=== PATIENT | male | born 1950 | race Caucasian/White ===

== ENCOUNTER 2016-07-17 19:10 | Emergency (ER) | payer OTHER, MEDICARE ==
[2016-07-17] MEDS ORDERED: MAGNESIUM CITRATE 296 ML BOTTLE PO ONE (19:41)
--- NOTE | 2016-07-17 19:41 | ER Document Report ---
ED Medical Screen (RME) - General Chief Complaint: Constipation Stated Complaint: POSSIBLE CONSTIPATION Time seen by provider: 19:40 Mode of Arrival: Wheelchair Information source: Patient Notes: 66-year-old hearing impaired man with a history of coronary artery disease, minimal ambulation, presents with constipation for the past several days. TRAVEL OUTSIDE OF THE [place] IN LAST 30 DAYS: No - Related Data Allergies/Adverse Reactions: latex [Latex] Allergy (Unknown, Verified 04/30/15 06:11) Penicillins Allergy (Unknown, Verified 04/30/15 06:11) Past Medical History - Past Medical History Cardiac Medical History: Reports: Hx Congestive Heart Failure, Hx Heart Attack, Hx Hypercholesterolemia, Hx Hypertension, Hx Heart Murmur - abnormal ekg at [place] Denies: Hx Peripheral Vascular Disease Pulmonary Medical History: Denies: Hx Tuberculosis Neurological Medical History: Denies: Hx Cerebrovascular Accident, Hx Seizures Renal/ Medical History: Reports: Hx Benign Prostatic Hyperplasia. Denies: Hx End Stage Renal Disease, Hx Kidney Stones, Hx Peritoneal Dialysis Malignancy Medical History: Denies Hx Leukemia GI Medical History: Reports: Hx Gastroesophageal Reflux Disease. Denies: Hx Crohn's Disease, Hx Hiatal Hernia, Hx Irritable Bowel, Hx Liver Failure, Hx Ulcer Musculoskeltal Medical History: Reports Hx Arthritis, Denies Hx Fibromyalgia, Denies Hx Multiple Sclerosis, Denies Hx Muscular Dystrophy Psychiatric Medical History: Reports: Hx Depression Denies: Hx Dementia Traumatic Medical History: Denies: Hx Fractures Infectious Medical History: Denies: Hx HIV Past Surgical History: Reports: Hx Cardiac Catheterization, Hx Cardiac Surgery - stents, defib, CABG, Hx Cholecystectomy, Hx Coronary Artery Bypass Graft, Hx Genitourinary Surgery - vasectomy, Hx Inguinal Hernia. Denies: Hx Appendectomy , Hx Bowel Surgery, Hx Colostomy, Hx Gastric Bypass Surgery, Hx Herniorrhaphy, Hx Pacemaker, Hx Tonsillectomy - Immunizations Hx Diphtheria, Pertussis, Tetanus Vaccination: Yes
[2016-07-17 19:42] VITALS: BP 144/93
[2016-07-17 21:52] LABS: ABSOLUTE EOSINOPHILS # (AUTO) 0.3 10^3/uL (0.0-0.6); ABSOLUTE LYMPHOCYTES (AUTO) 1.4 10^3/uL (0.5-4.7); ABSOLUTE MONOCYTES (AUTO) 1.1 10^3/uL (0.1-1.4); ABSOLUTE NEUT (AUTO) 4.2 10^3/uL (1.7-8.2); BASOPHILS % (AUTO) 0.4 % (0-2); EOSINOPHILS % (AUTO) 4.7 % (0-6); HEMATOCRIT 37.5 % (37.9-51.0); HEMOGLOBIN 13.3 g/dL (13.5-17.0); HGB HCT DIFFERENCE 2.4; LYMPHOCYTES % (AUTO) 19.9 % (13-45); MEAN CORPUSCULAR HEMOGLOBIN 33.6 pg (27.0-33.4); MEAN CORPUSCULAR HGB CONC 35.4 g/dL (32.0-36.0); MEAN CORPUSCULAR VOLUME 95 fl (80-97); MONOCYTES % (AUTO) 15.7 % (3-13); RED BLOOD COUNT 3.95 10^6/uL (4.35-5.55); SEGMENTED NEUTROPHILS % (AUTO) 59.3 % (42-78); WHITE BLOOD COUNT 7.1 10^3/uL (4.0-10.5)
[2016-07-17 22:09] LABS: ALANINE AMINOTRANSFERASE 46 U/L (21-72); ALBUMIN 3.8 g/dL (3.5-5.0); ALKALINE PHOSPHATASE 134 U/L (38-126); ANION GAP 10 (5-19); ASPARTATE AMINO TRANSFERASE 42 U/L (17-59); BILIRUBIN,DIRECT 0.2 mg/dL (0.0-0.4); BILIRUBIN,TOTAL 1.1 mg/dL (0.2-1.3); BLOOD UREA NITROGEN 12 mg/dL (7-20); CALCIUM 9.9 mg/dL (8.4-10.2); CARBON DIOXIDE 28 mmol/L (22-30); CHLORIDE 103 mmol/L (98-107); CREATININE RESULT 0.73 mg/dL (0.52-1.25); GLUCOSE 98 mg/dL (75-110); POTASSIUM 4.1 mmol/L (3.6-5.0); SODIUM 140.7 mmol/L (137-145); TOTAL PROTEIN 6.4 g/dL (6.3-8.2)
--- NOTE | 2016-07-17 23:14 | ER Document Report ---
ED General - General Chief Complaint: Constipation Stated Complaint: POSSIBLE CONSTIPATION Mode of Arrival: Wheelchair Notes: Patient is a 66-year-old male who presents with complaints of constipation. Patient says that he gets recurrent constipation. He says his usually give some Dulcolax now prevented; however, his has been admitted to the hospital for last 4 days. He has not had a bowel movement for 3 days. He said no vomiting. No fevers. He has had to receive enemas in the past. No blood in the stool. He says he has pressure in his rectum feels as if there is a big stool ball there that he cannot get out. No other complaints at this time. TRAVEL OUTSIDE OF THE [place] IN LAST 30 DAYS: No - Related Data Allergies/Adverse Reactions: latex [Latex] Allergy (Unknown, Verified 07/17/16 19:44) Penicillins Allergy (Unknown, Verified 07/17/16 19:44) Past Medical History - General Information source: Patient - Social History Smoking Status: Never Smoker Frequency of alcohol use: None Drug Abuse: None Family History: Reviewed & Not Pertinent Patient has suicidal ideation: No Patient has homicidal ideation: No - Past Medical History Cardiac Medical History: Reports: Hx Congestive Heart Failure, Hx Heart Attack, Hx Hypercholesterolemia, Hx Hypertension, Hx Heart Murmur - abnormal ekg at [place] Denies: Hx Peripheral Vascular Disease Pulmonary Medical History: Denies: Hx Tuberculosis Neurological Medical History: Denies: Hx Cerebrovascular Accident, Hx Seizures Renal/ Medical History: Reports: Hx Benign Prostatic Hyperplasia. Denies: Hx End Stage Renal Disease, Hx Kidney Stones, Hx Peritoneal Dialysis Malignancy Medical History: Denies Hx Leukemia GI Medical History: Reports: Hx Gastroesophageal Reflux Disease. Denies: Hx Crohn's Disease, Hx Hiatal Hernia, Hx Irritable Bowel, Hx Liver Failure, Hx Ulcer Musculoskeltal Medical History: Reports Hx Arthritis, Denies Hx Fibromyalgia, Denies Hx Multiple Sclerosis, Denies Hx Muscular Dystrophy Psychiatric Medical History: Reports: Hx Depression Denies: Hx Dementia Traumatic Medical History: Denies: Hx Fractures Infectious Medical History: Denies: Hx HIV Past Surgical History: Reports: Hx Cardiac Catheterization, Hx Cardiac Surgery - stents, defib, CABG, Hx Cholecystectomy, Hx Coronary Artery Bypass Graft, Hx Genitourinary Surgery - vasectomy, Hx Inguinal Hernia. Denies: Hx Appendectomy , Hx Bowel Surgery, Hx Colostomy, Hx Gastric Bypass Surgery, Hx Herniorrhaphy, Hx Pacemaker, Hx Tonsillectomy - Immunizations Hx Diphtheria, Pertussis, Tetanus Vaccination: Yes Hx Pneumococcal Vaccination: 12/16/10 Review of Systems - Review of Systems Notes: My Normal Review Basic REVIEW OF SYSTEMS: CONSTITUTIONAL : Denies fever, chills, or sweats. Denies recent illness. RESPIRATORY: Denies cough, cold, or chest congestion. Denies shortness of breath, difficulty breathing, or wheezing. GASTROINTESTINAL: Mild lower abdominal pain. Denies nausea, vomiting, or diarrhea. Has had some constipation. GENITOURINARY: Denies difficulty urinating, painful urination, burning, frequency, or blood in urine.s. LMP: MUSCULOSKELETAL: Denies neck or back pain or joint pain or swelling. SKIN: Denies rash or skin lesions. NEUROLOGICAL: Denies altered mental status or loss of consciousness. Denies headache. Denies weakness or paralysis or loss of use of either side. Denies problems with gait or speech. Denies sensory or motor loss. ALL OTHER SYSTEMS REVIEWED AND NEGATIVE. Physical Exam - Vital signs Vitals: Temp Pulse Resp BP Pulse Ox 98.4 F 65 19 144/93 H 100 07/17/16 19:36 07/17/16 19:36 07/17/16 19:36 07/17/16 19:36 07/17/16 19:36 - Notes Notes: General Appearance: Well nourished, alert, cooperative, no acute distress, no obvious discomfort. Well-appearing. Vitals: reviewed, See vital signs table. Eyes: PERRL, EOMI, Conjuctiva clear Mouth: No decreasd moisture Abdomen: Normal BS, soft, No rigidity, mild lower abdominal tenderness to palpation, No guarding, no rebound, no abdominal masses, no organomegaly Rectal exam: Large amount of irm claylike textured stool in rectal vault. Small non-thrombosed external hemorrhoid. Extremities: strength 5/5 in all extremities, good pulses in all extremities, no swelling or tenderness in the extremities, no edema. Skin: warm, dry, appropriate color, no rash Neuro: speech clear, oriented x 3, normal affect, responds appropriately to questions. Course - Re-evaluation Re-evalutation: 07/17/16 23:37 I did do a partial disimpaction. It was able to get out a moderate amount of stool from the rectum through digital disimpaction. We will now give the patient a enema to help relieve him of the remainder of the stool in his rectal vault. - Vital Signs Vital signs: Temp Pulse Resp BP Pulse Ox 98.4 F 65 19 144/93 H 100 07/17/16 19:36 07/17/16 19:36 07/17/16 19:36 07/17/16 19:36 07/17/16 19:36 - Laboratory Result Diagrams: 07/17/16 21:30 07/17/16 21:30 Laboratory results interpreted by me: 07/17/16 07/17/16 21:30 21:30 RBC 3.95 L Hgb 13.3 L Hct 37.5 L MCH 33.6 H RDW 17.0 H Plt Count 143 L Monocytes % 15.7 H Alkaline Phosphatase 134 H - Transfer of Care Notes: 07/18/16 01:48 Patient has had a large bowel movement after the enema. He feels much improved. He has no pain and looks well. Patient will be discharged home. I encouraged him to return to ER if he has current pain, worsening constipation, or any blood in the stool. Patient agrees with plan and will be discharged home. Dictation of this chart was performed using voice recognition software; therefore, there may be some unintended grammatical errors. Discharge - Discharge Clinical Impression: Fecal impaction in rectum Abdominal pain Qualifiers: Abdominal location: lower abdomen, unspecified Qualified Code(s): R10.30 - Lower abdominal pain, unspecified Condition: Good Disposition: HOME, SELF-CARE Instructions: Constipation ([facility]) Additional Instructions: Please take the MiraLAX as prescribed. Please follow-up with your doctor in 2 to 3 days. Please return to the ER immediately if you have recurrent difficulty having bowel movements, any bloody stool, or any fevers. Prescriptions: Polyethylene Glycol 3350 [Miralax] 1 cap PO DAILY #527 powder
[2016-07-17] MEDS ORDERED: MINERAL OIL 30 ML UDCUP PR ONE (23:36)
== END 2016-07-18 02:10 | disposition home or self-care (01) ==
LOC: ER 19:10
DX: K56.41 Fecal impaction (principal); R10.30 Lower abdominal pain, unspecified; K59.00 Constipation, unspecified
CPT/HCPCS: 36415; 74000; 80053; 85025; 99283

== ENCOUNTER 2016-09-07 11:10 | Emergency (ER) | payer OTHER, MEDICARE ==
--- NOTE | 2016-09-07 11:42 | ER Document Report ---
HPI - HPI Patient complains to provider of: Right shoulder pain Onset: This morning Onset/Duration: Sudden Quality of pain: Throbbing Severity: Severe Pain Level: 5 Context: Patient states he was in a closet putting his shirt on and when he turned around , he tripped over the hamper. states that he landed on the bed, falling off and injuring his right shoulder on the floor. witnessed the fall event , she denies he lost consciousness, no nausea or vomiting, and is acting like his usual self. Patient is very hard of hearing so is answering some of the questions for him. Patient denies dizziness, chest pain or shortness of breath. Associated Symptoms: None Exacerbated by: Movement Relieved by: Denies Similar symptoms previously: No Recently seen / treated by doctor: No - ROS ROS below otherwise negative: Yes Systems Reviewed and Negative: Yes All other systems reviewed and negative - CONSTITUTIONAL Constitutional: DENIES: Fever - EENT EENT: DENIES: Congestion - NEURO Neurology: DENIES: Headache - CARDIOVASCULAR Cardiovascular: DENIES: Chest pain - RESPIRATORY Respiratory: DENIES: Trouble Breathing - GASTROINTESTINAL Gastrointestinal: DENIES: Abdominal Pain - URINARY Urinary: DENIES: Dysuria - MUSCULOSKELETAL Musculoskeletal: REPORTS: Extremity pain - Right shoulder/clavicle - DERM Skin Color: Ecchymosis - right collar bone Skin Problems: None <LAZARUS VINCENT - Last Filed: 09/07/16 12:38> Past Medical History - General Information source: Patient, Relative - spouse - Social History Smoking Status: Former Smoker Frequency of alcohol use: None Drug Abuse: None Lives with: Spouse/Significant other Family History: Reviewed & Not Pertinent Patient has suicidal ideation: No Patient has homicidal ideation: No - Past Medical History Cardiac Medical History: Reports: Hx Congestive Heart Failure, Hx Heart Attack, Hx Hypercholesterolemia, Hx Hypertension, Hx Heart Murmur - abnormal ekg at [place] Neurological Medical History: Denies: Hx Cerebrovascular Accident, Hx Seizures Renal/ Medical History: Reports: Hx Benign Prostatic Hyperplasia. Denies: Hx End Stage Renal Disease, Hx Kidney Stones, Hx Peritoneal Dialysis Malignancy Medical History: Denies Hx Leukemia GI Medical History: Reports: Hx Gastroesophageal Reflux Disease. Denies: Hx Crohn's Disease, Hx Hiatal Hernia, Hx Irritable Bowel, Hx Liver Failure, Hx Ulcer Musculoskeltal Medical History: Reports Hx Arthritis, Denies Hx Fibromyalgia, Denies Hx Multiple Sclerosis, Denies Hx Muscular Dystrophy Psychiatric Medical History: Reports: Hx Depression Denies: Hx Dementia Traumatic Medical History: Denies: Hx Fractures Infectious Medical History: Denies: Hx HIV Past Surgical History: Reports: Hx Cardiac Catheterization, Hx Cardiac Surgery - stents, defib, CABG, Hx Cholecystectomy, Hx Coronary Artery Bypass Graft, Hx Genitourinary Surgery - vasectomy, Hx Inguinal Hernia. Denies: Hx Appendectomy , Hx Bowel Surgery, Hx Colostomy, Hx Gastric Bypass Surgery, Hx Herniorrhaphy, Hx Pacemaker, Hx Tonsillectomy - Immunizations Hx Diphtheria, Pertussis, Tetanus Vaccination: Yes Hx Pneumococcal Vaccination: 12/16/10 <LAZARUS VINCENT - Last Filed: 09/07/16 12:38> Vertical Provider Document - INFECTION CONTROL TRAVEL OUTSIDE OF THE [place] IN LAST 30 DAYS: No - RESPIRATORY O2 Sat by Pulse Oximetry: 98 <LAZARUS VINCENT - Last Filed: 09/07/16 12:38> Course - Re-evaluation Re-evalutation: 09/07/16 12:35 X-rays negative for fracture and were discussed with patient and spouse. - Vital Signs Vital signs: Temp Pulse Resp BP Pulse Ox 97.9 F 64 16 118/76 98 09/07/16 11:15 09/07/16 11:15 09/07/16 11:15 09/07/16 11:15 09/07/16 11:15 <LAZARUS VINCENT - Last Filed: 09/07/16 12:38> - Vital Signs Vital signs: Temp Pulse Resp BP Pulse Ox 97.8 F 57 L 16 115/72 97 09/07/16 12:56 09/07/16 12:56 09/07/16 12:56 09/07/16 12:56 09/07/16 12:56 <SCARLET PATEL - Last Filed: 09/08/16 14:37> Procedures - Immobilization Right Arm Pre-Proc Neuro Vasc Exam: Normal Immobilizer type: Sling Performed by: PCT Post-Proc Neuro Vasc Exam: Normal Alignment checked and good: Yes <LAZARUS VINCENT - Last Filed: 09/07/16 12:38> Discharge <LAZARUS VINCENT - Last Filed: 09/07/16 12:38> <JORGE,SCARLET - Last Filed: 09/08/16 14:37> - Discharge Clinical Impression: Contusion of right shoulder Qualifiers: Encounter type: initial encounter Qualified Code(s): S40.011A - Contusion of right shoulder, initial encounter Condition: Good Disposition: HOME, SELF-CARE Additional Instructions: Ice packs to shoulder Pain medications as prescribed Follow-up with your doctor Saturday for recheck If worsens and as needed. Prescriptions: Hydrocodone/Acetaminophen [[place] 5-325 mg Tablet] 1 tab PO PRN PRN #15 tablet PRN Reason:
--- NOTE | 2016-09-07 12:05 | RADIOLOGY REPORT (SQ) ---
EXAM DESCRIPTION: SHOULDER RIGHT 2 OR MORE VIEWS COMPLETED DATE/TIME: 09/07/2016 11:53 am REASON FOR STUDY: injury - please include clavicle COMPARISON: None. NUMBER OF VIEWS: Three views. TECHNIQUE: Internal rotation, external rotation, and Y view images acquired of the right shoulder. LIMITATIONS: None. FINDINGS: MINERALIZATION: Normal. BONES: No acute fracture or dislocation. No worrisome bone lesions. JOINTS: No dislocation. VISUALIZED LUNGS AND RIBS: No pneumothorax. No rib fracture. SOFT TISSUES: No radiopaque foreign body. OTHER: No other significant finding. IMPRESSION: NEGATIVE STUDY OF THE RIGHT SHOULDER. NO RADIOGRAPHIC EVIDENCE OF ACUTE INJURY. TECHNICAL DOCUMENTATION: JOB ID: [id number] [email or web address]- All Rights Reserved
--- NOTE | 2016-09-07 12:21 | RADIOLOGY REPORT (SQ) ---
EXAM DESCRIPTION: RIBS RIGHT W/PA CHEST COMPLETED DATE/TIME: 09/07/2016 11:53 am REASON FOR STUDY: injury - please include clavicle COMPARISON: None. TECHNIQUE: Frontal view of the chest and additional views of the right ribs acquired. NUMBER OF VIEWS: Three views LIMITATIONS: None. FINDINGS: FRONTAL CXR: No pneumothorax is seen. There is blunting of the right costophrenic angle c onsistent with a small right pleural effusion. No consolidations are identified. RIBS: No displaced rib fractures. No lytic or blastic bony lesions. OTHER: No other significant finding. IMPRESSION: NO PNEUMOTHORAX. NO DISPLACED RIB FRACTURES. COMMENT: SITE OF TRAUMA/COMPLAINT MARKED/STAMP COMPLETED: No TECHNICAL DOCUMENTATION: JOB ID: [id number] [employer]- All Rights Reserved
[2016-09-07 12:59] VITALS: BP 115/72
== END 2016-09-07 12:54 | disposition home or self-care (01) ==
LOC: ER 11:10
DX: S40.011A Contusion of right shoulder, initial encounter (principal); W01.0XXA Fall on same level from slipping, tripping and stumbling without subsequent striking against object, initial encounter; Y92.008 Other place in unspecified non-institutional (private) residence as the place of occurrence of the external cause; I50.9 Heart failure, unspecified; E78.00 Pure hypercholesterolemia, unspecified; I11.0 Hypertensive heart disease with heart failure; K21.9 Gastro-esophageal reflux disease without esophagitis; I25.2 Old myocardial infarction; Z95.1 Presence of aortocoronary bypass graft; Z95.810 Presence of automatic (implantable) cardiac defibrillator; Z90.49 Acquired absence of other specified parts of digestive tract; Z98.52 Vasectomy status
CPT/HCPCS: 99283

== ENCOUNTER 2016-12-07 10:20 | Emergency (ER) | payer OTHER, MEDICARE ==
--- NOTE | 2016-12-07 10:33 | ER Document Report ---
ED General - General Stated Complaint: FALL/HEAD PAIN Mode of Arrival: Medic Information source: Patient Notes: 66-year-old male presents after a mechanical fall while standing. Patient leans on a door that was not checked all the way and fell sideways hitting the right side of his chest and the back of his head. Patient is on baby aspirin daily initially stated he had a headache but that has since resolved. Patient notes he has had some neck pain and this is similar. denies any neuro deficits TRAVEL OUTSIDE OF THE [place] IN LAST 30 DAYS: No - HPI Onset: Just prior to arrival Onset/Duration: Sudden Quality of pain: Achy Severity: Mild Pain Level: Denies Associated symptoms: Body/muscle aches Exacerbated by: Movement Relieved by: Denies Similar symptoms previously: No Recently seen / treated by doctor: No - Related Data Allergies/Adverse Reactions: latex [Latex] Allergy (Unknown, Verified 12/07/16 10:32) Penicillins Allergy (Unknown, Verified 12/07/16 10:32) Past Medical History - Social History Smoking Status: Never Smoker Cigarette use (# per day): No Chew tobacco use (# tins/day): No Smoking Education Provided: No Family History: Reviewed & Not Pertinent - Past Medical History Cardiac Medical History: Reports: Hx Congestive Heart Failure, Hx Heart Attack, Hx Hypercholesterolemia, Hx Hypertension, Hx Heart Murmur - abnormal ekg at [place] Denies: Hx Peripheral Vascular Disease Pulmonary Medical History: Denies: Hx Tuberculosis Neurological Medical History: Denies: Hx Cerebrovascular Accident, Hx Seizures Renal/ Medical History: Reports: Hx Benign Prostatic Hyperplasia. Denies: Hx End Stage Renal Disease, Hx Kidney Stones, Hx Peritoneal Dialysis Malignancy Medical History: Denies Hx Leukemia GI Medical History: Reports: Hx Gastroesophageal Reflux Disease. Denies: Hx Crohn's Disease, Hx Hiatal Hernia, Hx Irritable Bowel, Hx Liver Failure, Hx Ulcer Musculoskeltal Medical History: Reports Hx Arthritis, Denies Hx Fibromyalgia, Denies Hx Multiple Sclerosis, Denies Hx Muscular Dystrophy Psychiatric Medical History: Reports: Hx Depression Denies: Hx Dementia Traumatic Medical History: Denies: Hx Fractures Infectious Medical History: Denies: Hx HIV Past Surgical History: Reports: Hx Cardiac Catheterization, Hx Cardiac Surgery - stents, defib, CABG, Hx Cholecystectomy, Hx Coronary Artery Bypass Graft, Hx Genitourinary Surgery - vasectomy, Hx Inguinal Hernia. Denies: Hx Appendectomy , Hx Bowel Surgery, Hx Colostomy, Hx Gastric Bypass Surgery, Hx Herniorrhaphy, Hx Pacemaker, Hx Tonsillectomy - Immunizations Hx Diphtheria, Pertussis, Tetanus Vaccination: Yes Hx Pneumococcal Vaccination: 12/16/10 Review of Systems - Review of Systems Notes: REVIEW OF SYSTEMS: CONSTITUTIONAL : Denies fever, chills, or sweats. Denies recent illness. EENT: Denies eye, ear, throat, or mouth pain or symptoms. Denies nasal or sinus congestion or discharge. Denies throat, tongue, or mouth swelling or difficulty swallowing. CARDIOVASCULAR: Denies chest pain. Denies palpitations or racing or irregular heart beat. Denies ankle edema. RESPIRATORY: Denies cough, cold, or chest congestion. Denies shortness of breath, difficulty breathing, or wheezing. GASTROINTESTINAL: Denies abdominal pain or distention. Denies nausea, vomiting , or diarrhea. Denies blood in vomitus, stools, or per rectum. Denies black, tarry stools. Denies constipation. GENITOURINARY: Denies difficulty urinating, painful urination, burning, frequency, blood in urine, or discharge. MUSCULOSKELETAL: neck pain SKIN: Denies rash, lesions or sores. HEMATOLOGIC : Denies easy bruising or bleeding. LYMPHATIC: Denies swollen, enlarged glands. NEUROLOGICAL: Denies confusion or altered mental status. Denies passing out or loss of consciousness. Denies dizziness or lightheadedness. Denies headache. Denies weakness or paralysis or loss of use of either side. Denies problems with gait or speech. Denies sensory loss, numbness, or tingling. Denies seizures. PSYCHIATRIC: Denies anxiety or stress. Denies depression, suicidal ideation, or homicidal ideation. ALL OTHER SYSTEMS REVIEWED AND NEGATIVE. Dictation was performed using [employer] voice recognition software PHYSICAL EXAMINATION: GENERAL: Well-appearing, well-nourished and in no acute distress. HEAD: Atraumatic, normocephalic. EYES: Pupils equal round and reactive to light, extraocular movements intact, sclera anicteric, conjunctiva are normal. ENT: Nares patent, oropharynx clear without exudates. Moist mucous membranes. NECK: Normal range of motion, supple without lymphadenopathy LUNGS: Breath sounds clear to auscultation bilaterally and equal. No wheezes rales or rhonchi. right rib pain HEART: Regular rate and rhythm without murmurs ABDOMEN: Soft, nontender, nondistended abdomen. No guarding, no rebound. No masses appreciated. Musculoskeletal: c collar in place NEUROLOGICAL: Cranial nerves grossly intact. Normal speech, normal gait. Normal sensory, motor exams PSYCH: Normal mood, normal affect. SKIN: Warm, Dry, normal turgor, no rashes or lesions noted. Course - Re-evaluation Re-evalutation: 12/07/16 11:30 X-rays were performed no acute fractures noted small effusion which was seen on previous x-rays noted on repeat imaging. Otherwise patient looks well in no distress will be discharged home After performing a Medical Screening Examination, I estimate there is LOW risk for INTRACRANIAL HEMORRHAGE, UNSTABLE SPINE FRACTURE, CENTRAL CORD SYNDROME, CAUDA EQUINA, THORACIC AORTIC DISSECTION, PNEUMOTHORAX, PERFORATED BOWEL, RUPTURED ABDOMINAL AORTIC ANEURYSM, ACUTE TENDON RUPTURE, COMPARTMENT SYNDROME, or OPEN FRACTURE, thus I consider the discharge disposition reasonable. Also, there is no evidence or peritonitis, sepsis, or toxicity. I have reevaluated this patient multiple times and no significant life threatening changes are noted. The patient and I have discussed the diagnosis and risks, and we agree with discharging home to follow-up with their primary doctor with the understanding that symptoms and presentations can change. We also discussed returning to the Emergency Department immediately if new or worsening symptoms occur. We have discussed the symptoms which are most concerning (e.g., bloody stool, fever, changing or worsening pain, vomiting) that necessitate immediate return. Discharge - Discharge Clinical Impression: Rib pain on right side, Neck pain, small pleural effusion Fall Qualifiers: Encounter type: initial encounter Qualified Code(s): W19.XXXA - Unspecified fall, initial encounter Condition: Stable Disposition: HOME, SELF-CARE Instructions: Rib Contusion ([facility]) Additional Instructions: Follow up with your physician tomorrow for further care or return to the ED IMMEDIATELY if symptoms worsen or new concerns occur. If you cannot afford to follow up with your primary care physician a list of low cost clinics have been provided at the end of your discharge papers as well.
--- NOTE | 2016-12-07 11:12 | RADIOLOGY REPORT (SQ) ---
EXAM DESCRIPTION: CERV SP 4 OR 5 VIEWS COMPLETED DATE/TIME: 12/07/2016 10:54 am REASON FOR STUDY: fall COMPARISON: None. NUMBER OF VIEWS: Five views. TECHNIQUE: AP, lateral, obliques and odontoid radiographic images acquired of the cervical spine. LIMITATIONS: None. FINDINGS: MINERALIZATION: Normal. ALIGNMENT: Anatomic. VERTEBRAE: Vertebral bodies of normal height. DISCS: Disc spaces are narrowed to a mild degree at C4-5, C5-6, C6-7 with small anterior and posterio r osteophytes. FORAMINA: No osteophytes or foraminal narrowing. LATERAL AND POSTERIOR ELEMENTS: Facets, lateral masses and spinous processes without significant find ings. HARDWARE: None in the spine. SOFT TISSUES: No masses or calcifications. Lung apices clear. OTHER: No other significant finding. IMPRESSION: Mild degenerative disc changes and spondylosis with no acute abnormality. TECHNICAL DOCUMENTATION: JOB ID: [id number] [employer]- All Rights Reserved
--- NOTE | 2016-12-07 11:24 | RADIOLOGY REPORT (SQ) ---
EXAM DESCRIPTION: RIBS RIGHT W/PA CHEST COMPLETED DATE/TIME: 12/07/2016 10:54 am REASON FOR STUDY: fall rib pain COMPARISON: None. TECHNIQUE: Views of the right ribs acquired. NUMBER OF VIEWS: Two views LIMITATIONS: None. FINDINGS: INCLUDED CHEST: No pneumothorax. Small right pleural effusion. RIBS: No displaced rib fractures. No lytic or blastic bony lesions. OTHER: No other significant finding. IMPRESSION: Small right pleural effusion. No displaced rib fractures. COMMENT: SITE OF TRAUMA/COMPLAINT MARKED/STAMP COMPLETED: No TECHNICAL DOCUMENTATION: JOB ID: [id number] [employer]- All Rights Reserved
--- NOTE | 2016-12-07 11:25 | RADIOLOGY REPORT (SQ) ---
EXAM DESCRIPTION: CHEST PA/LAT COMPLETED DATE/TIME: 12/07/2016 10:54 am REASON FOR STUDY: FALL COMPARISON: 04/30/2015 EXAM PARAMETERS: NUMBER OF VIEWS: two views TECHNIQUE: Digital Frontal and Lateral radiographic views of the chest acquired. RADIATION DOSE: NA LIMITATIONS: none FINDINGS: LUNGS AND PLEURA: Small right pleural effusion. No pulmonary infiltrate or mass. No pneu mothorax. MEDIASTINUM AND HILAR STRUCTURES: No masses or contour abnormalities. HEART AND VASCULAR STRUCTURES: Normal heart size. No aneurysm. BONES: No acute findings. HARDWARE: Pacemaker/ defibrillator. Sternotomy wires. Coronary stent. OTHER: No other significant finding. IMPRESSION: Small right pleural effusion. TECHNICAL DOCUMENTATION: JOB ID: [id number] [employer]- All Rights Reserved
[2016-12-07] MEDS ORDERED: IBUPROFEN 600 MG TABLET PO ONE (11:33)
[2016-12-07 12:56] VITALS: BP 143/75
== END 2016-12-07 12:56 | disposition home or self-care (01) ==
LOC: ER 10:20
DX: R07.81 Pleurodynia (principal); M54.2 Cervicalgia; W18.39XA Other fall on same level, initial encounter; J90 Pleural effusion, not elsewhere classified; I10 Essential (primary) hypertension; I25.2 Old myocardial infarction; Z79.82 Long term (current) use of aspirin; Z91.040 Latex allergy status; Z88.0 Allergy status to penicillin; Z95.5 Presence of coronary angioplasty implant and graft; Z95.1 Presence of aortocoronary bypass graft; Z95.810 Presence of automatic (implantable) cardiac defibrillator
CPT/HCPCS: 71020; 72050; 99283

== ENCOUNTER 2017-03-29 15:41 | Emergency (ER) | payer OTHER, MEDICARE ==
--- NOTE | 2017-03-29 16:51 | ER Document Report ---
ED Medical Screen (RME) - General Chief Complaint: Pain All Over Stated Complaint: BODYACHES Time Seen by Provider: 03/29/17 16:44 Notes: 67-year-old male here with complaints of numerous falls over the past 2 weeks. He states he thinks he has had at least 4. He does not know why he is falling down. He thinks he may be passing out but does not know for sure. He is not sure if he is having seizures. He does not usually fall, he reports. He does have some low back pain ever since falling. He also states he had some chest pain last night but not at this time. TRAVEL OUTSIDE OF THE [place] IN LAST 30 DAYS: No - Related Data Allergies/Adverse Reactions: latex [Latex] Allergy (Unknown, Verified 12/07/16 10:32) Penicillins Allergy (Unknown, Verified 12/07/16 10:32) Past Medical History - Social History Chew tobacco use (# tins/day): No Frequency of alcohol use: Occasional Drug Abuse: None - Past Medical History Cardiac Medical History: Reports: Hx Congestive Heart Failure, Hx Heart Attack, Hx Hypercholesterolemia, Hx Hypertension, Hx Heart Murmur - abnormal ekg at [facility] Denies: Hx Peripheral Vascular Disease Pulmonary Medical History: Denies: Hx Tuberculosis Neurological Medical History: Denies: Hx Cerebrovascular Accident, Hx Seizures Renal/ Medical History: Reports: Hx Benign Prostatic Hyperplasia. Denies: Hx End Stage Renal Disease, Hx Kidney Stones, Hx Peritoneal Dialysis Malignancy Medical History: Denies Hx Leukemia GI Medical History: Reports: Hx Gastroesophageal Reflux Disease. Denies: Hx Crohn's Disease, Hx Hiatal Hernia, Hx Irritable Bowel, Hx Liver Failure, Hx Pancreatitis, Hx Ulcer Musculoskeltal Medical History: Reports Hx Arthritis, Denies Hx Fibromyalgia, Denies Hx Multiple Sclerosis, Denies Hx Muscular Dystrophy Psychiatric Medical History: Reports: Hx Depression Denies: Hx Dementia Traumatic Medical History: Denies: Hx Fractures Infectious Medical History: Denies: Hx HIV Past Surgical History: Reports: Hx Cardiac Catheterization, Hx Cardiac Surgery - stents, defib, CABG, Hx Cholecystectomy, Hx Coronary Artery Bypass Graft, Hx Genitourinary Surgery - vasectomy, Hx Inguinal Hernia. Denies: Hx Appendectomy , Hx Bowel Surgery, Hx Colostomy, Hx Gastric Bypass Surgery, Hx Herniorrhaphy, Hx Pacemaker, Hx Tonsillectomy - Immunizations Hx Diphtheria, Pertussis, Tetanus Vaccination: Yes Physical Exam - Vital signs Vitals: Temp Pulse Resp BP Pulse Ox 97.7 F 95 20 143/83 H 98 03/29/17 16:01 03/29/17 16:01 03/29/17 16:01 03/29/17 16:01 03/29/17 16:01 Course - Vital Signs Vital signs: Temp Pulse Resp BP Pulse Ox 97.7 F 95 20 143/83 H 98 03/29/17 16:01 03/29/17 16:01 03/29/17 16:01 03/29/17 16:01 03/29/17 16:01
[2017-03-29 17:08] LABS: ABSOLUTE BASOPHILS # (AUTO) 0.1 10^3/uL (0.0-0.2); ABSOLUTE EOSINOPHILS # (AUTO) 0.1 10^3/uL (0.0-0.6); ABSOLUTE LYMPHOCYTES (AUTO) 1.3 10^3/uL (0.5-4.7); ABSOLUTE MONOCYTES (AUTO) 1.3 10^3/uL (0.1-1.4); ABSOLUTE NEUT (AUTO) 6.9 10^3/uL (1.7-8.2); BASOPHILS % (AUTO) 1.3 % (0-2); EOSINOPHILS % (AUTO) 1.4 % (0-6); HEMATOCRIT 46.9 % (37.9-51.0); MEAN CORPUSCULAR HEMOGLOBIN 32.5 pg (27.0-33.4); MEAN CORPUSCULAR HGB CONC 34.1 g/dL (32.0-36.0); MEAN CORPUSCULAR VOLUME 95 fl (80-97); MONOCYTES % (AUTO) 13.1 % (3-13); PLATELET COUNT 143 10^3/uL (150-450); RED BLOOD COUNT 4.93 10^6/uL (4.35-5.55); RED CELL DISTRIBUTION WIDTH 16.9 % (11.5-14.0); SEGMENTED NEUTROPHILS % (AUTO) 71.2 % (42-78); TOTAL CELLS COUNTED % (AUTO) 100 %; WHITE BLOOD COUNT 9.8 10^3/uL (4.0-10.5)
--- NOTE | 2017-03-29 17:43 | RADIOLOGY REPORT (SQ) ---
EXAM DESCRIPTION: CT HEAD WITHOUT COMPLETED DATE/TIME: 03/29/2017 5:31 pm REASON FOR STUDY: Numerous recent falls; eval bleed mass COMPARISON: 04/22/2015 TECHNIQUE: Axial images acquired through the brain without intravenous contrast. Images reviewed wi th bone, brain and subdural windows. Images stored on PACS. All CT scanners at this facility use dose modulation, iterative reconstruction, and/or weight based d osing when appropriate to reduce radiation dose to as low as reasonably achievable (ALARA). [facility]: Dose Right [facility]: CareDose [facility]: Dose Right [facility]: Teradose 4D [facility]: Smart Xylitol [place] RADIATION DOSE: CT Rad equipment meets quality standard of care and radiation dose reduction techniq ues were employed. CTDIvol: 64.6 mGy. DLP: 1163 mGy-cm. mGy. LIMITATIONS: None. FINDINGS: VENTRICLES: Normal size and contour. CEREBRUM: No masses. No hemorrhage. No midline shift. No evidence for acute infarction. Normal gra y/white matter differentiation. No areas of low density in the white matter. CEREBELLUM: No masses. No hemorrhage. No alteration of density. No evidence for acute infarction. EXTRAAXIAL SPACES: No fluid collections. No masses. ORBITS AND GLOBE: No intra- or extraconal masses. Normal contour of globe without masses. CALVARIUM: No fracture. PARANASAL SINUSES: No fluid or mucosal thickening. SOFT TISSUES: No mass or hematoma. OTHER: No other significant finding. IMPRESSION: NORMAL BRAIN CT WITHOUT CONTRAST. EVIDENCE OF ACUTE STROKE: NO. COMMENT: Quality ID # [id number]: Final reports with documentation of one or more dose reduction techniques (e.g., Automated exposure control, adjustment of the mA and/or kV according to patient size, use of iterative reconstruction technique) TECHNICAL DOCUMENTATION: JOB ID: [id number] [employer]- All Rights Reserved
[2017-03-29 17:44] LABS: ALANINE AMINOTRANSFERASE 45 U/L (21-72); ALBUMIN 4.2 g/dL (3.5-5.0); ALKALINE PHOSPHATASE 136 U/L (38-126); ANION GAP 10 (5-19); ASPARTATE AMINO TRANSFERASE 48 U/L (17-59); BILIRUBIN,DIRECT 0.3 mg/dL (0.0-0.4); BILIRUBIN,TOTAL 1.3 mg/dL (0.2-1.3); BLOOD UREA NITROGEN 18 mg/dL (7-20); CALCIUM 10.4 mg/dL (8.4-10.2); CARBON DIOXIDE 27 mmol/L (22-30); CHLORIDE 105 mmol/L (98-107); GLUCOSE 95 mg/dL (75-110); PHOSPHORUS 3.5 mg/dL (2.5-4.5); POTASSIUM 4.2 mmol/L (3.6-5.0); SODIUM 141.9 mmol/L (137-145); TOTAL PROTEIN 6.9 g/dL (6.3-8.2)
--- NOTE | 2017-03-29 18:05 | RADIOLOGY REPORT (SQ) ---
EXAM DESCRIPTION: CHEST PA/LAT COMPLETED DATE/TIME: 03/29/2017 5:58 pm REASON FOR STUDY: CP COMPARISON: 12/07/2016 EXAM PARAMETERS: NUMBER OF VIEWS: 2 TECHNIQUE: Digital Frontal and Lateral radiographic views of the chest acquired. RADIATION DOSE: NA LIMITATIONS: none FINDINGS: LUNGS AND PLEURA: Increasing right pleural effusion and right basilar opacities. Left asif g is clear. MEDIASTINUM AND HILAR STRUCTURES: No masses or contour abnormalities. HEART AND VASCULAR STRUCTURES: Heart enlarged with mild vascular congestion. BONES: Sternal wires. HARDWARE: Pacemaker defibrillator. OTHER: No other significant finding. IMPRESSION: Increasing vascular congestion. Increasing right pleural effusion right basilar opaciti es. TECHNICAL DOCUMENTATION: JOB ID: [id number] [employer]- All Rights Reserved
--- NOTE | 2017-03-29 18:06 | RADIOLOGY REPORT (SQ) ---
EXAM DESCRIPTION: L SPINE WHOLE COMPLETED DATE/TIME: 03/29/2017 5:58 pm REASON FOR STUDY: Status post fall COMPARISON: None. NUMBER OF VIEWS: Five views including obliques. TECHNIQUE: AP, lateral, oblique, and sacral radiographic images acquired of the lumbar spine. LIMITATIONS: None. FINDINGS: MINERALIZATION: Normal. SEGMENTATION: Normal. No transitional anatomy. ALIGNMENT: Normal. VERTEBRAE: Mild anterior wedge deformity of L1. This is an old finding, present on prior lateral [facility] st x-ray. Otherwise intact. DISCS: Multilevel disc space narrowing with osteophytes. POSTERIOR ELEMENTS: Pedicles and facets are intact. No pars defect or posterior arch defects. Facet arthropathy is present. HARDWARE: None in the spine. PARASPINAL SOFT TISSUES: Normal. PELVIS: Intact as visualized. No fractures or worrisome bone lesions. SI joints intact. OTHER: No other significant finding. IMPRESSION: SPONDYLOSIS WITHOUT BONE LESION OR FRACTURE. TECHNICAL DOCUMENTATION: JOB ID: [id number] [employer]- All Rights Reserved
--- NOTE | 2017-03-29 18:19 | EKG REPORT ---
SEVERITY:- ABNORMAL ECG - SINUS RHYTHM LEFT ATRIAL ABNORMALITY ABNRM R PROG, CONSIDER ASMI OR LEAD PLACEMENT NONSPECIFIC T ABNORMALITIES, INFERIOR LEADS : Confirmed by: Cristhian Clark MD 29-Mar-2017 18:19:02
[2017-03-29 18:40] LABS: APPEARANCE,URINE CLEAR; BILIRUBIN,URINE NEGATIVE (NEGATIVE); COLOR,URINE YELLOW; GLUCOSE, URINE NEGATIVE (NEGATIVE); KETONES,URINE NEGATIVE (NEGATIVE); LEUKOCYTE ESTERASE,URINE NEGATIVE (NEGATIVE); NITRITE,URINE NEGATIVE (NEGATIVE); PROTEIN,URINE NEGATIVE (NEGATIVE); URINE SPECIFIC GRAVITY 1.019
[2017-03-29] MEDS ORDERED: NORMAL SALINE 1000 ML 1,000 ML IV ONE (19:50)
--- NOTE | 2017-03-29 19:50 | ER Document Report ---
ED General - General Chief Complaint: Pain All Over Stated Complaint: BODYACHES Time Seen by Provider: 03/29/17 16:44 TRAVEL OUTSIDE OF THE [place] IN LAST 30 DAYS: No - HPI Notes: Patient is a 67-year-old male who presents to the ED complaining primarily of lower back pain 2-3 weeks. Patient states that he has been traveling to [facility] almost daily to see his who is in the hospital currently. Patient states that his back started becoming sore when he was in the car, and does not know of anyone specific injury. Patient states that he did fall a couple times over the last 2-3 months with his last fall 2 weeks ago. Patient states that he fell on his left side 1 day and then soon after that he fell on his right side. Patient states that he believes he lost his balance. Patient denies any loss of consciousness, nausea/vomiting. Patient states that he has felt general body pain since his falls. Patient also states that his children have noticed that he is not eating as much since his has been in the hospital. Patient states that he has felt general weakness as well. Patient states that the pain in his back does not radiate. Patient states that movement makes the pain worse. Otherwise he is urinating normally and having normal bowel movements. Pt reports a short episode of chest pain yesterday which has since been resolved. Pt states that he has not had any acute changes in his breathing or any worsening of his chronic [place]. + cardiac history with stent placement age 45, defib placement thereafter. Denies any headache, fever, head injury, neck pain, changes in vision/speech/mentation/ hearing, URI, sore throat, chest pain, palpitations, syncope, cough, shortness of breath, wheeze, dyspnea, abdominal pain, nausea/vomiting/diarrhea, urinary retention, dysuria, hematuria, loss of control of bowel or bladder, numbness/ tingling, saddle anesthesia, muscle paralysis, or rash. - Related Data Allergies/Adverse Reactions: latex [Latex] Allergy (Unknown, Verified 12/07/16 10:32) Penicillins Allergy (Unknown, Verified 12/07/16 10:32) Past Medical History - Social History Smoking Status: Former Smoker Chew tobacco use (# tins/day): No Frequency of alcohol use: Occasional Drug Abuse: None Family History: Reviewed & Not Pertinent Patient has suicidal ideation: No Patient has homicidal ideation: No - Past Medical History Cardiac Medical History: Reports: Hx Congestive Heart Failure, Hx Heart Attack, Hx Hypercholesterolemia, Hx Hypertension, Hx Heart Murmur - abnormal ekg at [place] Denies: Hx Peripheral Vascular Disease Pulmonary Medical History: Denies: Hx Tuberculosis Neurological Medical History: Denies: Hx Cerebrovascular Accident, Hx Seizures Renal/ Medical History: Reports: Hx Benign Prostatic Hyperplasia. Denies: Hx End Stage Renal Disease, Hx Kidney Stones, Hx Peritoneal Dialysis Malignancy Medical History: Denies Hx Leukemia GI Medical History: Reports: Hx Gastroesophageal Reflux Disease. Denies: Hx Crohn's Disease, Hx Hiatal Hernia, Hx Irritable Bowel, Hx Liver Failure, Hx Pancreatitis, Hx Ulcer Musculoskeltal Medical History: Reports Hx Arthritis, Denies Hx Fibromyalgia, Denies Hx Multiple Sclerosis, Denies Hx Muscular Dystrophy Psychiatric Medical History: Reports: Hx Depression Denies: Hx Dementia Traumatic Medical History: Denies: Hx Fractures Infectious Medical History: Denies: Hx HIV Past Surgical History: Reports: Hx Cardiac Catheterization, Hx Cardiac Surgery - stents, defib, CABG, Hx Cholecystectomy, Hx Coronary Artery Bypass Graft, Hx Genitourinary Surgery - vasectomy, Hx Inguinal Hernia. Denies: Hx Appendectomy , Hx Bowel Surgery, Hx Colostomy, Hx Gastric Bypass Surgery, Hx Herniorrhaphy, Hx Pacemaker, Hx Tonsillectomy - Immunizations Hx Diphtheria, Pertussis, Tetanus Vaccination: Yes Hx Pneumococcal Vaccination: 12/16/10 Review of Systems - Review of Systems Notes: REVIEW OF SYSTEMS: CONSTITUTIONAL : Denies fever, chills, or sweats. Denies recent illness. EENT: Denies eye, ear, throat, or mouth pain or symptoms. Denies nasal or sinus congestion or discharge. Denies throat, tongue, or mouth swelling or difficulty swallowing. CARDIOVASCULAR: Denies chest pain. Denies palpitations or racing or irregular heart beat. Denies ankle edema. RESPIRATORY: Denies cough, cold, or chest congestion. Denies shortness of breath, difficulty breathing, or wheezing. GASTROINTESTINAL: Denies abdominal pain or distention. Denies nausea, vomiting , or diarrhea. Denies blood in vomitus, stools, or per rectum. Denies black, tarry stools. Denies constipation. GENITOURINARY: Denies difficulty urinating, painful urination, burning, frequency, blood in urine, or discharge. MUSCULOSKELETAL: see hpi SKIN: Denies rash, lesions or sores. NEUROLOGICAL: Denies confusion or altered mental status. Denies passing out or loss of consciousness. Denies dizziness or lightheadedness. Denies headache. Denies weakness or paralysis or loss of use of either side. Denies problems with gait or speech. Denies sensory loss, numbness, or tingling. Denies seizures. ALL OTHER SYSTEMS REVIEWED AND NEGATIVE. Dictation was performed using [employer] voice recognition software Physical Exam - Vital signs Vitals: Temp Pulse Resp BP Pulse Ox 97.7 F 95 20 143/83 H 98 03/29/17 16:01 03/29/17 16:01 03/29/17 16:01 03/29/17 16:01 03/29/17 16:01 Notes: PHYSICAL EXAMINATION: GENERAL: Well-appearing, well-nourished and in no acute distress. A&Ox4. Answers questions appropriately, but hard of hearing. HEAD: Atraumatic, normocephalic. Non-tender. No loya sign EYES: Pupils equal round and reactive to light, extraocular movements intact, sclera anicteric, conjunctiva are normal. No raccoon eyes/entrapment ENT: EAC clear b/l. TM's intact b/l without erythema, fluid, or perforation. Nares patent and without discharge. oropharynx clear without exudates. No tonsilar hypertrophy or erythema. Moist mucous membranes. No sinus tenderness. No hemotympanum/CSF discharge. NECK: Normal range of motion, supple without lymphadenopathy. No rigidity. No midline tenderness. Spurling negative. NEXUS negative. Chest: No flail chest. equal rise/fall. Non-tender LUNGS: Breath sounds clear to auscultation bilaterally and equal. No wheezes rales or rhonchi. HEART: Regular rate and rhythm without murmurs, rubs, gallops. ABDOMEN: Soft, nontender, nondistended abdomen. No guarding, no rebound. No masses appreciated. Normal bowel sounds present. No CVA tenderness bilaterally. No obvious pulsatile mass. Musculoskeletal: Ext b/l: FROM to passive/active. Strength 5+/5. No deficits noted. No bony tenderness of extremities. Back: FROM to passive/active. Strength 5+/5. No vertebral point tenderness, stepoffs, or deformities. No other bony tenderness or ecchymosis. SLR negative b/l. + tenderness to the L-paraspinal mm (corresponds to pain described). + mild spasming/tightness noted. Extremities: No cyanosis, clubbing, or edema b/l. Peripheral pulses 2+. Capillary refill less than 2 seconds. NEUROLOGICAL: NIH 0. GCS 15. MMSE intact. Cranial nerves grossly intact. Normal speech, ataxic gait. Normal sensory, motor exams. Reflexes 2+ b/l. BRUCE' s negative. Pronator drift negative. Heel/ahuja, finger/nose wnl. PSYCH: Normal mood, normal affect. SKIN: Warm, Dry, normal turgor, no rashes or lesions noted. Course - Re-evaluation Re-evalutation: 03/29/17 21:[address] Mendoza who is in agreement with discharge/plan: Patient is an afebrile, well-hydrated, 67-year-old male who presents to the ED with low back pain, suspect inflammatory, mild increase in his vascular congestion secondary to CHF, and weakness not otherwise specified. Vitals are stable. PE is otherwise unremarkable for any focal neurological deficits. Pt does not have any CP/SOB. CBC, CMP, UA, phosphorus, magnesium, cardiac enzymes 2, EKG, L-spine x-ray, and CT of the head was unremarkable for any acute pathology. Chest x-ray did show some increased in his vascular congestion when compared to previous. Pt did not have any pitting edema and no respiratory distress. Low suspicion for any meningitis, fracture, expanding/ruptured AAA, cauda equina syndrome, epidural mass lesion/abscess, herniated disc causing severe spinal stenosis, ACS, PE, Pneumothorax, Pericarditis, Dissection, Sepsis , or other systemic infection at this time. Patient is aware that his condition can change from initial presentation and that he needs monitor symptoms closely for any acute changes. Patient was given 20 mg IV Lasix as well as 30 mg Toradol IV. Patient advised that he needs to increase his Lasix to twice a day over the next 3 days. Conservative measures for symptoms otherwise. Recheck with your PCM in 3-5 days. Return to the ED with any worsening/concerning symptoms otherwise as reviewed in discharge. Patient is in agreement. - Vital Signs Vital signs: Temp Pulse Resp BP Pulse Ox 97.7 F 95 20 143/83 H 98 03/29/17 16:01 03/29/17 16:01 03/29/17 16:01 03/29/17 16:01 03/29/17 16:01 - Laboratory Result Diagrams: 03/29/17 17:00 03/29/17 17:00 Laboratory results interpreted by me: 03/29/17 03/29/17 03/29/17 17:00 17:00 18:10 RDW 16.9 H Plt Count 143 L Monocytes % 13.1 H Calcium 10.4 H Alkaline Phosphatase 136 H NT-Pro-B Natriuret Pep Urine Urobilinogen 2.0 H 03/29/17 19:11 RDW Plt Count Monocytes % Calcium Alkaline Phosphatase NT-Pro-B Natriuret Pep 4140 H Urine Urobilinogen Discharge - Discharge Clinical Impression: Pulmonary vascular congestion, General weakness Low back pain Qualifiers: Chronicity: acute Back pain laterality: bilateral Sciatica presence: without sciatica Qualified Code(s): M54.5 - Low back pain Condition: Stable Disposition: HOME, SELF-CARE Instructions: Stretching Exercises for the Back ([facility]), Low Back Pain ([facility]), Weakness ([facility]), Congestive Heart Failure ([facility]) Additional Instructions: Maintain adequate fluid and food intake Healthy diet Monitor symptoms closely Rest, Ice Tylenol/ibuprofen as needed Light stretches daily Strength exercises as able Moist heat and massage may help F/u with your PCP in 3-5 days for a recheck Consider consult(s) with Orthopedics/physical therapy for ongoing/worsening symptoms Return to the ED with any worsening symptoms and/or development of fever, headache, chest pain, palpitations, syncope, shortness of breath, trouble breathing, abdominal pain, n/v/d, muscle weakness/paralysis, numbness/tingling, swelling, redness, or other worsening symptoms that are concerning to you. Forms: Elevated Blood Pressure Referrals: MARY AVILES MD [Primary Care Provider] - Follow up in 3-5 days [facility] [Provider Group] - Follow up as needed
[2017-03-29] MEDS ORDERED: FUROSEMIDE INJ/PF 20 MG/2 ML SDV IV ONE (20:33)
[2017-03-29] MEDS ORDERED: KETOROLAC TROMETHAMINE INJ/PF 30 MG/1 ML SDV IV ONE (20:36)
[2017-03-29 22:08] VITALS: BP 131/85
== END 2017-03-29 23:18 | disposition home or self-care (01) ==
LOC: ER 15:41
DX: I87.8 Other specified disorders of veins (principal); R53.1 Weakness; M54.5 Low back pain; M79.1 Myalgia; R07.9 Chest pain, unspecified; Z87.891 Personal history of nicotine dependence
CPT/HCPCS: 93005; 99284; 96374; 96375; 36415; 83735; 84100; 85025; 80053; 81001; 84484; 83880; 71046; 72110; 70450; 93010; J1940; J1885

== ENCOUNTER 2017-10-28 06:52 | Emergency (ER) | payer OTHER, MEDICARE ==
[2017-10-28] MEDS ORDERED: ASPIRIN 81 MG TABLET, CHEWABLE PO ONE (07:07)
--- NOTE | 2017-10-28 07:38 | ER Document Report ---
ED General - General Chief Complaint: Chest Pain Stated Complaint: CHEST PAIN Time Seen by Provider: 10/28/17 07:16 Mode of Arrival: Ambulatory Information source: Patient TRAVEL OUTSIDE OF THE [place] IN LAST 30 DAYS: No - HPI Notes: 67-year-old male with a medical history of open heart surgery and several stents presents by private car alone for complaints of shortness of breath that started today with chest pain 4 days has been complaining of "falling a lot". Pt is not having chest pain currently. Patient states chest pain is bilateral with numbness and tingling to right upper extremity. Patient states that started this morning. Patient's is at home, had a stroke and recent and recent amputation. Patient is a history of patient had cardiac stents placed at 45 years old years old and had a defibrillator placed thereafter. he states that he has fallen per nursing no as well as staggered into the emergency room where he drove himself from [facility]. Patient is alone. Denies fevers, chills,nausea, vomiting, diarrhea, abdominal pain, hematuria,blurred vision, double vision, loss of vision, speech changes, LH, dizziness, syncope, headaches , wheezing, ST, URI, neck pain, weakness, bowel or bladder dysfunction, saddle anesthesia or rash. Denies IV drug use. - Related Data Allergies/Adverse Reactions: latex [Latex] Allergy (Unknown, Verified 12/07/16 10:32) Penicillins Allergy (Unknown, Verified 12/07/16 10:32) Past Medical History - General Information source: Patient, [facility] Records - Social History Smoking Status: Former Smoker Family History: Reviewed & Not Pertinent - Past Medical History Cardiac Medical History: Reports: Hx Congestive Heart Failure, Hx Heart Attack, Hx Hypercholesterolemia, Hx Hypertension, Hx Heart Murmur - abnormal ekg at [facility] Denies: Hx Peripheral Vascular Disease Pulmonary Medical History: Denies: Hx Tuberculosis Neurological Medical History: Denies: Hx Cerebrovascular Accident, Hx Seizures Renal/ Medical History: Reports: Hx Benign Prostatic Hyperplasia. Denies: Hx End Stage Renal Disease, Hx Kidney Stones, Hx Peritoneal Dialysis Malignancy Medical History: Denies Hx Leukemia GI Medical History: Reports: Hx Gastroesophageal Reflux Disease. Denies: Hx Crohn's Disease, Hx Hiatal Hernia, Hx Irritable Bowel, Hx Liver Failure, Hx Pancreatitis, Hx Ulcer Musculoskeletal Medical History: Reports Hx Arthritis, Denies Hx Fibromyalgia, Denies Hx Multiple Sclerosis, Denies Hx Muscular Dystrophy Psychiatric Medical History: Reports: Hx Depression Denies: Hx Dementia Traumatic Medical History: Denies: Hx Fractures Infectious Medical History: Denies: Hx HIV Past Surgical History: Reports: Hx Cardiac Catheterization, Hx Cardiac Surgery - stents, defib, CABG, Hx Cholecystectomy, Hx Coronary Artery Bypass Graft, Hx Genitourinary Surgery - vasectomy, Hx Inguinal Hernia. Denies: Hx Appendectomy , Hx Bowel Surgery, Hx Colostomy, Hx Gastric Bypass Surgery, Hx Herniorrhaphy, Hx Pacemaker, Hx Tonsillectomy - Immunizations Hx Diphtheria, Pertussis, Tetanus Vaccination: Yes Hx Pneumococcal Vaccination: 12/16/10 Review of Systems - Review of Systems Constitutional: See HPI EENT: No symptoms reported Cardiovascular: See HPI Respiratory: No symptoms reported Gastrointestinal: No symptoms reported Genitourinary: No symptoms reported Male Genitourinary: No symptoms reported Musculoskeletal: No symptoms reported Skin: No symptoms reported Hematologic/Lymphatic: No symptoms reported Neurological/Psychological: No symptoms reported Physical Exam - Vital signs Vitals: Pulse Resp BP Pulse Ox 71 14 106/77 98 10/28/17 06:56 10/28/17 06:56 10/28/17 06:56 10/28/17 06:56 - Notes Notes: PHYSICAL EXAMINATION: GENERAL: chronically ill malnourished and in no acute distress. HEAD: Atraumatic, normocephalic. EYES: Pupils equal round and reactive to light, extraocular movements intact, sclera anicteric, conjunctiva are normal. ENT: Nares patent, oropharynx clear without exudates. Moist mucous membranes. NECK: Normal range of motion, supple without lymphadenopathy LUNGS: Diminished breath sounds in right lower lung. breath sounds clear to auscultation bilaterally except for RLL. No wheezes rales or rhonchi. HEART: Irregularly irregular and rhythm without murmurs ABDOMEN: Soft, nondistended abdomen. RUQ, LUQ and Epigastric tenderness on palpation no guarding, no rebound. No masses appreciated. No CVA tenderness bilaterally Musculoskeletal: Normal range of motion, no pitting or edema. No cyanosis. NEUROLOGICAL: Cranial nerves grossly intact. Normal speech, normal gait. Normal sensory, motor exams PSYCH: Normal mood, normal affect. SKIN: Warm, Dry, normal turgor, no rashes or lesions noted. Course - Re-evaluation Re-evalutation: 10/28/17 07:56 67-year-old male who drove himself to the emergency room and is alone presents to the ED in and out of rapid A. fib no distress afebrile for evaluation of chest pain x 4 days with SOB that started this morning. patient is hard of hearing. NIH stroke scale 0, however due to patient stating he has been falling the last few months and when daughter, Katlin, she stated that patient did fall a week and a half ago and hit the back of his head, will perform a CT head to rule out intracranial bleed, subarachnoid hemorrhage, subdural heamtoma , cerebral edema, etc. Daughter stated that they ruled out Parkinson's due to concern of falling so much, she states has been falling for the last couple years and [facility]. EKG negative for STEMI, shows A. fib. pt is supposed to be taking Plavix but according to his , he hasn't been taking his medication for the last few weeks. cbc has a wbc of 6.9, CMP cr 1.14, BUN 25, potassium 4.1. Cardiac enzymes trop 0.139, ckmb 26.60.discussed findings with Dr. Baldemar Swartz, ER attending stated to repeat troponin as well as EKG, reevaluation of repeat EKG shows aberrant beats, no STEMI on ekg. heparin protocol initiated for ACS. BNP 10,300, pt in acute CHF exacerbation. CT head negative for acute stroke or intracranial findings. Patient reports no chest pain. Advised patient if he feels chest pain to notify provider immediately with call briceño. will start heparin drip per protocol. 1000-patient's heart rate in between 120s-110s, is remaining asymptomatic for chest pain, will start digoxin to control rate. Patient hypotensive with bp 86/60's, will give IV fluids and will dieresis off once pt is hemodynamically stable. Pt is asymptomatic for dizziness, lightheadedness with soft blood pressure. After 500' s mL IV, blood pressure 116/80;s. repeat troponin is 0.111, which is decreased from 0.139 previously. cxr shows a right basiliar opacity effusion. CT a negative for acute PE or dissecting aortic aneurysm etc., CTA abdomen unremarkable. urinalysis shows proteinuria. Dr. Dona العراقي, hospitalist, consulted at 11:10 for admission due to patient not having any chest pain with decreasing troponin when trending NSTEMI with CHF On evaluation by Dr. العراقي, hospitalist, patient reported substernal chest pain when sitting upwards and relieved when laying flat. When this provider re-evaluated patient , patient was stating he is having substernal chest pain without radiation, dull ache. Dr. Rosa Maria Lundberg, title searcher consulted, who states that patient will need to be transferred to another facility due to anon-STEMI. Consulted with Carina Marcum, title searcher on-call at 11:55, will accept patient guidance [facility] for further evaluation of non-STEMI. All questions and concerns answered by this provider of patient and daughter. 3rd troponin 0 0.111. . 1500-pt remains afebrile, vitals stable, heart rate remains around 95 bpm. Heparin held after elevated APTT for an hour and will reduce by 3 per heparin protocol. 1700- EMS at bedside to transfer to [facility] at 5 PM, patient reevaluated at bedside, and is in no active distress. Vital stable, patient is alert awake and orientated. - Vital Signs Vital signs: Temp Pulse Resp BP Pulse Ox 97.1 F 71 18 93/77 L 96 10/28/17 08:55 10/28/17 06:56 10/28/17 14:31 10/28/17 17:02 10/28/17 16:31 - Laboratory Result Diagrams: 10/28/17 07:23 10/28/17 07:23 Laboratory results interpreted by me: 10/28/17 10/28/17 10/28/17 07:23 07:23 07:23 RDW 18.5 H Monocytes % 19.2 H PT APTT BUN 25 H Total Bilirubin 2.4 H Direct Bilirubin 0.8 H AST 95 H Alkaline Phosphatase 156 H Creatine Kinase 997 H CK-MB (CK-2) 26.60 H NT-Pro-B Natriuret Pep 97809 H TSH Urine Protein Urine Glucose (UA) Urine Urobilinogen 10/28/17 10/28/17 10/28/17 07:23 07:23 09:20 RDW Monocytes % PT 16.8 H APTT BUN Total Bilirubin Direct Bilirubin AST Alkaline Phosphatase Creatine Kinase CK-MB (CK-2) NT-Pro-B Natriuret Pep TSH 6.43 H Urine Protein >=500 H Urine Glucose (UA) 50 H Urine Urobilinogen 2.0 H 10/28/17 10/28/17 10/28/17 14:15 14:15 15:22 RDW Monocytes % PT 20.6 H APTT 138.0 H* D BUN Total Bilirubin Direct Bilirubin AST Alkaline Phosphatase Creatine Kinase CK-MB (CK-2) 25.10 H NT-Pro-B Natriuret Pep 9920 H TSH Urine Protein Urine Glucose (UA) Urine Urobilinogen - EKG Interpretation by Wa EKG shows normal: Sinus rhythm - 3 Discharge - Discharge Clinical Impression: CHF (congestive heart failure), NSTEMI (non-ST elevated myocardial infarction) Condition: Stable Disposition: Critical Access Hospital Referrals: MARY AVILES MD [Primary Care Provider] - Follow up as needed
[2017-10-28 07:39] LABS: ABSOLUTE BASOPHILS # (AUTO) 0.1 10^3/uL (0.0-0.2); ABSOLUTE EOSINOPHILS # (AUTO) 0.1 10^3/uL (0.0-0.6); ABSOLUTE LYMPHOCYTES (AUTO) 1.2 10^3/uL (0.5-4.7); ABSOLUTE MONOCYTES (AUTO) 1.3 10^3/uL (0.1-1.4); ABSOLUTE NEUT (AUTO) 4.2 10^3/uL (1.7-8.2); BASOPHILS % (AUTO) 1.2 % (0-2); EOSINOPHILS % (AUTO) 1.5 % (0-6); HEMATOCRIT 44.7 % (37.9-51.0); LYMPHOCYTES % (AUTO) 17.5 % (13-45); MEAN CORPUSCULAR HEMOGLOBIN 32.2 pg (27.0-33.4); MEAN CORPUSCULAR HGB CONC 33.5 g/dL (32.0-36.0); MEAN CORPUSCULAR VOLUME 96 fl (80-97); MONOCYTES % (AUTO) 19.2 % (3-13); PLATELET COUNT 150 10^3/uL (150-450); RED BLOOD COUNT 4.65 10^6/uL (4.35-5.55); RED CELL DISTRIBUTION WIDTH 18.5 % (11.5-14.0); SEGMENTED NEUTROPHILS % (AUTO) 60.6 % (42-78); TOTAL CELLS COUNTED % (AUTO) 100 %; WHITE BLOOD COUNT 6.9 10^3/uL (4.0-10.5)
--- NOTE | 2017-10-28 07:41 | EKG REPORT ---
SEVERITY:- ABNORMAL ECG - ATRIAL -FIBRILLATION, A-RATE 272 VENTRICULAR PREMATURE COMPLEX RIGHT BUNDLE BRANCH BLOCK : Confirmed by: Cristhian Clark MD 28-Oct-2017 07:40:31
--- NOTE | 2017-10-28 07:47 | RADIOLOGY REPORT (SQ) ---
EXAM DESCRIPTION: XR CHEST 1 VIEW COMPLETED DATE/TME: 10/28/2017 07:07 CLINICAL HISTORY: 67 years Male, chest pain COMPARISON: 9.22.17, report only NUMBER OF VIEWS/TECHNIQUE: 1/AP FINDINGS: Adequate lung volume, moderate right basilar opacity-effusion, small obscuration-fusion of the left costophrenic angle. moderately enlarged cardiac silhouette atherosclerosis, left cardiac stimulator with leads, and grossly intact bony thorax. IMPRESSION: Small right basilar opacity-effusion. Differential diagnosis includes right basilar pneumonia/atelectasis. Recommend CR/CT surveillance including at 7-12 weeks following initiation of clinically warranted therapy.
[2017-10-28 08:07] LABS: ALANINE AMINOTRANSFERASE 56 U/L (21-72); ALKALINE PHOSPHATASE 156 U/L (38-126); ANION GAP 14 (5-19); ASPARTATE AMINO TRANSFERASE 95 U/L (17-59); BILIRUBIN,DIRECT 0.8 mg/dL (0.0-0.4); BILIRUBIN,TOTAL 2.4 mg/dL (0.2-1.3); BLOOD UREA NITROGEN 25 mg/dL (7-20); CALCIUM 10.2 mg/dL (8.4-10.2); CARBON DIOXIDE 23 mmol/L (22-30); CHLORIDE 101 mmol/L (98-107); CREATINE KINASE 997 U/L (55-170); GLUCOSE 103 mg/dL (75-110); POTASSIUM 4.1 mmol/L (3.6-5.0); SODIUM 137.7 mmol/L (137-145); TOTAL PROTEIN 6.9 g/dL (6.3-8.2)
[2017-10-28 08:08] LABS: PHOSPHORUS 4.4 mg/dL (2.5-4.5)
[2017-10-28 08:09] LABS: CREATINE KINASE MB 26.6 ng/mL (<4.55)
[2017-10-28 08:11] LABS: TROPONIN I 0.139 ng/mL
[2017-10-28] MEDS ORDERED: FUROSEMIDE INJ/PF 40 MG/4 ML SDV IV ONE ×2 (08:19→13:33)
[2017-10-28] MEDS ORDERED: HEPARIN SOD (PORCINE) 1,000 UNIT/ML 10 ML VIAL IV ONE (08:20)
[2017-10-28] MEDS ORDERED: HEPARIN SODIUM,PORCINE/D5W 25,000 UNIT/250 ML RTUINJ IV PRN (08:20)
[2017-10-28 08:43] LABS: PARTIAL THROMBOPLASTIN TIME 35.1 SEC (23.5-35.8); PROTHROMBIN TIME 16.8 SEC (11.4-15.4)
[2017-10-28] MEDS ORDERED: HEPARIN SOD (PORCINE) 1,000 UNIT/ML 10 ML VIAL IV PRN (08:53)
[2017-10-28] MEDS ORDERED: DIGOXIN INJ 0.5 MG/2 ML AMPULE IV ONE (10:01)
--- NOTE | 2017-10-28 10:10 | RADIOLOGY REPORT (SQ) ---
EXAM DESCRIPTION: CT HEAD WITHOUT COMPLETED DATE/TIME: 10/28/2017 9:43 am REASON FOR STUDY: ams COMPARISON: None. TECHNIQUE: Axial images acquired through the brain without intravenous contrast. Images reviewed wi th bone, brain and subdural windows. Additional sagittal and coronal reconstructions were generated. Images stored on PACS. All CT scanners at this facility use dose modulation, iterative reconstruction, and/or weight based d osing when appropriate to reduce radiation dose to as low as reasonably achievable (ALARA). [facility]: Dose Right [facility]: CareDose [facility]: Dose Right [facility]: Teradose 4D [facility]: Fancy RADIATION DOSE: CT Rad equipment meets quality standard of care and radiation dose reduction techniq ues were employed. CTDIvol: 53.2 mGy. DLP: 1044 mGy-cm. mGy. LIMITATIONS: None. FINDINGS: VENTRICLES: Normal size and contour. The cisterns are patent. CEREBRUM: Chronic mild small vessel ischemic changes. No masses. No hemorrhage. No midline shift. No evidence for acute infarction. CEREBELLUM: No masses. No hemorrhage. No alteration of density. No evidence for acute infarction. EXTRAAXIAL SPACES: Age related involutional change. No fluid collections. No masses. ORBITS AND GLOBE: No intra- or extraconal masses. Normal contour of globe without masses. CALVARIUM: No fracture. PARANASAL SINUSES: No fluid or mucosal thickening. Lyndsey bullosa in the right middle turbinate, nor mal anatomic variant. SOFT TISSUES: No mass or hematoma. OTHER: Mild atherosclerotic changes involving the cavernous portion of the internal carotid arteries and the intracranial portion of the vertebral arteries bilaterally. IMPRESSION: 1 No acute intracranial abnormality. 2. Atrophy and chronic mild small vessel ischemic changes. . EVIDENCE OF ACUTE STROKE: NO COMMENT: Quality ID # 436: Final reports with documentation of one or more dose reduction techniques (e.g., Automated exposure control, adjustment of the mA and/or kV according to patient size, use of iterative reconstruction technique) TECHNICAL DOCUMENTATION: JOB ID: [id number] [employer]- All Rights Reserved Reading location - IP/workstation name: [email or web address]
[2017-10-28 10:13] LABS: AMORPHOUS SEDIMENT,URINE 2+ /HPF; APPEARANCE,URINE CLOUDY; BILIRUBIN,URINE NEGATIVE (NEGATIVE); COLOR,URINE AMBER; GLUCOSE, URINE 50 mg/dL (NEGATIVE); KETONES,URINE NEGATIVE (NEGATIVE); LEUKOCYTE ESTERASE,URINE NEGATIVE (NEGATIVE); NITRITE,URINE NEGATIVE (NEGATIVE); PROTEIN,URINE >=500 mg/dL (NEGATIVE)
[2017-10-28] MEDS ORDERED: RINGERS SOLUTION,LACTATED 500 ML IV PRN (10:20)
--- NOTE | 2017-10-28 10:21 | RADIOLOGY REPORT (SQ) ---
EXAM DESCRIPTION: CTA CHEST COMPLETED DATE/TIME: 10/28/2017 9:43 am REASON FOR STUDY: SOB with CP, rapid a fib, poor historian COMPARISON: 07/27/2010 TECHNIQUE: CT scan of the chest performed using helical scanning technique with dynamic intravenous contrast injection. Images reviewed with lung, soft tissue and bone windows. Reconstructed coronal and sagittal MPR images reviewed. Additional 3 dimensional post-processing performed to develop Maximal Intensity Projection images (CA P). All images stored on PACS. All CT scanners at this facility use dose modulation, iterative reconstruction, and/or weight based d osing when appropriate to reduce radiation dose to as low as reasonably achievable (ALARA). [facility]: Dose Right [facility]: CareDose [facility]: Dose Right [facility]: Teradose 4D [facility]: [employer] CONTRAST TYPE AND DOSE: contrast/concentration: Isovue 350.00 mg/ml; Total Contrast Delivered: 65.0 ml; Total Saline Delivered: 57.0 ml Contrast bolus optimized for the pulmonary arteries. Not diagnostic for the aorta. RENAL FUNCTION: Creatinine - 1.1 BUN=25 RADIATION DOSE: CT Rad equipment meets quality standard of care and radiation dose reduction techniq ues were employed. CTDIvol: 2.8 - 45.4 mGy. DLP: 742 mGy-cm. . LIMITATIONS: None. FINDINGS: LUNGS AND PLEURA: Bilateral mild to moderate pleural effusions and compressive atelectati c changes in the mid-lower lobes, more so on the right. No evidence of pneumothorax. The central ai rways are clear. AORTA AND GREAT VESSELS: Mild atherosclerotic changes involving the thoracic aorta. No aneurysm. C ontrast bolus not optimized for the aorta. HEART: No pericardial effusion. Dense coronary artery calcifications. PULMONARY ARTERIES: No emboli visualized in the main pulmonary arteries or the segmental branches. HILAR AND MEDIASTINAL STRUCTURES: No identified masses or abnormal nodes. HARDWARE: Prior anterior median sternotomy. Cardiac pacemaker/defibrillator. UPPER ABDOMEN: No significant findings. Limited exam. THYROID AND OTHER SOFT TISSUES: The visualized thyroid gland is heterogenous in appearance. BONES: No acute or significant finding. 3D MIPS: Confirm above findings. OTHER: No other significant finding. IMPRESSION: 1 No evidence for acute pulmonary emboli. 2. Mild to moderate bilateral pleural effusions and compressive atelectatic changes in the mid-lower lobes, more so on the right. 3. Additional findings as above. COMMENT: Quality ID # [id number]: Final reports with documentation of one or more dose reduction techniques (e.g., Automated exposure control, adjustment of the mA and/or kV according to patient size, use of iterative reconstruction technique) TECHNICAL DOCUMENTATION: JOB ID: [id number] [employer]- All Rights Reserved Reading location - IP/workstation name: [email or web address]
--- NOTE | 2017-10-28 10:24 | RADIOLOGY REPORT (SQ) ---
EXAM DESCRIPTION: CTA ABDOMEN COMPLETED DATE/TIME: 10/28/2017 9:43 am REASON FOR STUDY: abdomina pain with nausea COMPARISON: None. TECHNIQUE: CT scan of the abdominal aorta extending to the iliac bifurcation performed with intraven ous contrast using helical scanning technique with dynamic intravenous contrast injection. Images rev iewed with lung, soft tissue, and bone windows. Reconstructed coronal and sagittal MPR images reviewe d. All images stored on PACS. Advanced 3D imaging as volume rendering, MIPS, SSD performed? yes All CT scanners at this facility use dose modulation, iterative reconstruction, and/or weight based d osing when appropriate to reduce radiation dose to as low as reasonably achievable (ALARA). [facility]: Dose Right [facility]: CareDose [facility]: Dose Right [facility]: Teradose 4D [facility]: [employer] CONTRAST TYPE AND DOSE: See separate report of the same date. RENAL FUNCTION: See separate report of the same date. LIMITATIONS: None. FINDINGS: NON-CONTRASTED IMAGING: Post contrast images only. POST-CONTRAST IMAGING: AORTA AND VESSELS: Diffuse severe atherosclerosis without evidence of aneurysm, dissection, or major vessel occlusion. LUNG BASES: See separate report of the same date. LIVER: Normal size. No masses or dilated ducts. SPLEEN: Normal size. No focal lesions. PANCREAS: No masses. No significant calcifications. No adjacent inflammation or peripancreatic fluid collections. Pancreatic duct not dilated. GALLBLADDER: Surgically absent. ADRENAL GLANDS: No significant masses or asymmetry. RIGHT KIDNEY AND URETER: No mass, calculi or urinary tract obstruction. LEFT KIDNEY AND URETER: No mass, calculi or urinary tract obstruction. RETROPERITONEUM: No retroperitoneal adenopathy, hemorrhage or masses. BOWEL AND PERITONEAL CAVITY: Diverticulosis. No masses or inflammatory changes. Small amount of asc ites. No free-air. APPENDIX: Normal. ABDOMINAL WALL: No masses. No hernias. BONY STRUCTURES: No acute findings. 3-D IMAGING: Confirms the above findings. OTHER: No other significant finding. IMPRESSION: No evidence of aneurysm or dissection. Small amount of ascites. TECHNICAL DOCUMENTATION: JOB ID: [id number] Quality ID # [id number]: Final reports with documentation of one or more dose reduction techniques (e.g., Au tomated exposure control, adjustment of the mA and/or kV according to patient size, use of iterative reconstruction technique) 2010 [employer]- All Rights Reserved Reading location - IP/workstation name: [email or web address]
--- NOTE | 2017-10-28 12:55 | EKG REPORT ---
SEVERITY:- ABNORMAL ECG - ATRIAL FLUTTER, A-RATE 263 REPOL ABNRM SUGGESTS ISCHEMIA, LATERAL LEADS PROLONGED QT INTERVAL : Confirmed by: Cristhian Clark MD 28-Oct-2017 12:54:53
[2017-10-28] MEDS ORDERED: NITROGLYCERIN 0.4 MG/TAB 25 TAB/BOTTLE SL PRN (13:30)
[2017-10-28 15:05] LABS: CREATINE KINASE MB 25.1 ng/mL (<4.55); TROPONIN I 0.111 ng/mL
[2017-10-28 15:49] LABS: INTERNATIONAL RATION (INR) 1.68; PROTHROMBIN TIME 20.6 SEC (11.4-15.4)
[2017-10-28 17:37] VITALS: BP 93/77
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
== END 2017-10-28 17:41 | disposition short-term general hospital (02) ==
LOC: ER 06:52
DX: I11.0 Hypertensive heart disease with heart failure (principal); I50.22 Chronic systolic (congestive) heart failure; I43 Cardiomyopathy in diseases classified elsewhere; I21.4 Non-ST elevation (NSTEMI) myocardial infarction; I48.2 Chronic atrial fibrillation; T45.526A Underdosing of antithrombotic drugs, initial encounter; Z91.14 Patient's other noncompliance with medication regimen; I25.10 Atherosclerotic heart disease of native coronary artery without angina pectoris; R80.9 Proteinuria, unspecified; R06.02 Shortness of breath; R07.89 Other chest pain; R10.816 Epigastric abdominal tenderness; R29.6 Repeated falls; R20.0 Anesthesia of skin; R20.2 Paresthesia of skin; I25.2 Old myocardial infarction; Z95.1 Presence of aortocoronary bypass graft; Z95.5 Presence of coronary angioplasty implant and graft; Z95.810 Presence of automatic (implantable) cardiac defibrillator; Z91.040 Latex allergy status; Z88.0 Allergy status to penicillin; Z87.891 Personal history of nicotine dependence; Z79.899 Other long term (current) drug therapy; Z79.82 Long term (current) use of aspirin
CPT/HCPCS: 93005; 99285; 51701; 96375; 96365; 96366; 36415; 82553; 82550; 83690; 83735; 84100; 84443; 85025; 85610; 85730; 80053; 81001; 84484; 84481; 83880; 71045; 70450; 71275; 74175; 93010; C1758; J1644; J1160; J1940; J7120

== ENCOUNTER 2017-12-26 16:41 | Inpatient (IN) | payer OTHER, MEDICARE ==
[2017-12-26] MEDS ORDERED: FUROSEMIDE INJ/PF 40 MG/4 ML SDV IV ONE (17:48)
[2017-12-26] MEDS ORDERED: ASPIRIN 81 MG TABLET, CHEWABLE PO ONE (17:48)
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
--- NOTE | 2017-12-26 18:29 | RADIOLOGY REPORT (SQ) ---
EXAM DESCRIPTION: CHEST SINGLE VIEW COMPLETED DATE/TIME: 12/26/2017 6:15 pm REASON FOR STUDY: h/o CHF, missing lasix, weight gain COMPARISON: 10/28/2017 TECHNIQUE: Single frontal radiographic view of the chest acquired. NUMBER OF VIEWS: One view. LIMITATIONS: None. FINDINGS: LUNGS AND PLEURA: No pneumothorax. Significantly increased right pleural effusion, now la rge in size. Moderate left pleural effusion. Right basilar atelectasis -airspace disease. . MEDIASTINUM AND HILAR STRUCTURES: Stable. HEART AND VASCULAR STRUCTURES: Stable. BONES: No acute findings. HARDWARE: Cardiac defibrillator. CABG. OTHER: No other significant finding. IMPRESSION: Significantly increased right pleural effusion, now large in size. Moderate left pleura l effusion. Right basilar atelectasis -airspace disease. TECHNICAL DOCUMENTATION: JOB ID: [id number] [place]-72 2010 [employer]- All Rights Reserved Reading location - IP/workstation name: [email or web address]
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
[2017-12-26 19:01] LABS: ABSOLUTE EOSINOPHILS # (AUTO) 0.2 10^3/uL (0.0-0.6); ABSOLUTE LYMPHOCYTES (AUTO) 1.3 10^3/uL (0.5-4.7); ABSOLUTE NEUT (AUTO) 2.7 10^3/uL (1.7-8.2); BASOPHILS % (AUTO) 0.9 % (0-2); EOSINOPHILS % (AUTO) 4.3 % (0-6); HEMATOCRIT 43.9 % (37.9-51.0); HEMOGLOBIN 14.8 g/dL (13.5-17.0); LYMPHOCYTES % (AUTO) 25.1 % (13-45); MEAN CORPUSCULAR HEMOGLOBIN 31.5 pg (27.0-33.4); MEAN CORPUSCULAR HGB CONC 33.7 g/dL (32.0-36.0); MEAN CORPUSCULAR VOLUME 94 fl (80-97); MONOCYTES % (AUTO) 19.3 % (3-13); PLATELET COUNT 118 10^3/uL (150-450); RED CELL DISTRIBUTION WIDTH 20.5 % (11.5-14.0); SEGMENTED NEUTROPHILS % (AUTO) 50.4 % (42-78); TOTAL CELLS COUNTED % (AUTO) 100 %; WHITE BLOOD COUNT 5.4 10^3/uL (4.0-10.5)
[2017-12-26 19:05] LABS: INTERNATIONAL RATION (INR) 1.02; PROTHROMBIN TIME 13.9 SEC (11.4-15.4)
[2017-12-26 19:13] LABS: ALANINE AMINOTRANSFERASE 53 U/L (21-72); ALBUMIN 3.4 g/dL (3.5-5.0); ALKALINE PHOSPHATASE 175 U/L (38-126); ANION GAP 13 (5-19); ASPARTATE AMINO TRANSFERASE 56 U/L (17-59); BILIRUBIN,DIRECT 1.1 mg/dL (0.0-0.4); BILIRUBIN,TOTAL 2.4 mg/dL (0.2-1.3); BLOOD UREA NITROGEN 14 mg/dL (7-20); CALCIUM 9.5 mg/dL (8.4-10.2); CARBON DIOXIDE 24 mmol/L (22-30); CHLORIDE 99 mmol/L (98-107); CREATINE KINASE 230 U/L (55-170); GLUCOSE 78 mg/dL (75-110); POTASSIUM 3.7 mmol/L (3.6-5.0); SODIUM 136.3 mmol/L (137-145); TOTAL PROTEIN 6.2 g/dL (6.3-8.2)
[2017-12-26 19:25] LABS: CREATINE KINASE MB 9.16 ng/mL (<4.55)
[2017-12-26 19:41] LABS: TROPONIN I 0.111 ng/mL
[2017-12-26] MEDS ORDERED: MAGNESIUM HYDROXIDE SUSP 30 ML UDCUP PO PRN (21:26)
[2017-12-26] MEDS ORDERED: MAG HYDROX/AL HYDROX/SIMETH SUSP 30 ML UDCUP PO PRN (21:26)
[2017-12-26] MEDS ORDERED: ENALAPRILAT DIHYDRATE INJ/PF 1.25 MG/1 ML SDV IV PRN (21:26)
--- NOTE | 2017-12-26 22:34 | EKG REPORT ---
SEVERITY:- ABNORMAL ECG - SINUS TACHYCARDIA ABERRANT COMPLEX, POSSIBLY SUPRAVENTRICULAR RBBB AND LPFB : Confirmed by: Lola Mendoza MD 26-Dec-2017 22:33:40
[2017-12-26 23:13] LABS: CREATINE KINASE MB 9.78 ng/mL (<4.55); TROPONIN I 0.113 ng/mL
[2017-12-27] MEDS: POTASSIUM CHLORIDE 10 MEQ CAPSULE.ER PO SCH ×3 (01:44→21:41)
[2017-12-27] MEDS: FUROSEMIDE INJ/PF 40 MG/4 ML SDV IV SCH ×2 (01:45→10:11)
[2017-12-27] MEDS: HEPARIN SOD (PORCINE) 5,000 UNIT/ML 1 ML SYRINGE SUBCUT SCH ×4 (01:45→21:40)
[2017-12-27 05:23] LABS: ABSOLUTE EOSINOPHILS # (AUTO) 0.3 10^3/uL (0.0-0.6); ABSOLUTE MONOCYTES (AUTO) 0.8 10^3/uL (0.1-1.4); ABSOLUTE NEUT (AUTO) 2.3 10^3/uL (1.7-8.2); EOSINOPHILS % (AUTO) 6.9 % (0-6); HEMATOCRIT 43.4 % (37.9-51.0); LYMPHOCYTES % (AUTO) 22.5 % (13-45); MEAN CORPUSCULAR HGB CONC 34.7 g/dL (32.0-36.0); MEAN CORPUSCULAR VOLUME 92 fl (80-97); MONOCYTES % (AUTO) 18.8 % (3-13); PLATELET COUNT 100 10^3/uL (150-450); RED BLOOD COUNT 4.71 10^6/uL (4.35-5.55); RED CELL DISTRIBUTION WIDTH 20.7 % (11.5-14.0); SEGMENTED NEUTROPHILS % (AUTO) 50.8 % (42-78); TOTAL CELLS COUNTED % (AUTO) 100 %; WHITE BLOOD COUNT 4.5 10^3/uL (4.0-10.5)
[2017-12-27 05:38] LABS: ANION GAP 10 (5-19); BLOOD UREA NITROGEN 15 mg/dL (7-20); CALCIUM 9.7 mg/dL (8.4-10.2); CARBON DIOXIDE 27 mmol/L (22-30); CHLORIDE 98 mmol/L (98-107); GLUCOSE 90 mg/dL (75-110); POTASSIUM 3.5 mmol/L (3.6-5.0)
[2017-12-27 05:47] LABS: CREATINE KINASE MB 10.7 ng/mL (<4.55)
[2017-12-27 05:50] LABS: TROPONIN I 0.136 ng/mL
--- NOTE | 2017-12-27 06:16 | PDOC H&P ---
History of Present Illness Admission Date/PCP: 12/26/17 21:42 MARY AVILES MD Patient complains of: Bilateral leg edema History of Present Illness: ELIZABETH THOMSON is a 67 year old male with a past medical history of deafness, coronary artery disease status post three-vessel bypass graft, congestive heart failure with an ejection fraction of 23%, status post permanent pacemaker. He was evaluated in October 2017 evaluated in [place] over 2-week hospitalization. Reportedly further invasive, aggressive measures were felt to be futile recommending aggressive medical management. He presents with 3 weeks of weight gain, despite increased doses of Lasix. Patient admits orthopnea and dietary indiscretion. In the emergency room he receives IV Lasix, supplemental oxygen refer to the hospitalist for admission. Past Medical History Cardiac Medical History: Reports: Congestive Heart Failure, Myocardial Infarction, Hyperlipidema, Hypertension, Heart Murmur - abnormal ekg at [facility] Denies: Peripheral Vascular Disease Pulmonary Medical History: Denies: Tuberculosis Neurological Medical History: Denies: Seizures Renal/ Medical History: Denies: End Stage Renal Disease Malignancy Medical History: Denies: Leukemia GI Medical History: Reports: Gastroesophageal Reflux Disease Denies: Crohn's Disease, Hiatal Hernia Musculoskeltal Medical History: Reports: Arthritis Denies: Fibromyalgia Psychiatric Medical History: Reports: Depression Denies: Dementia Hematology: Reports: Anemia Denies: Hemophilia, Sickle Cell Disease Infectious Medical History: Denies: HIV Past Surgical History Past Surgical History: Reports: Cardiac Catheterization, Cholecystectomy, Coronary Artery Bypass Graft Denies: Appendectomy, Colostomy, Gastric Bypass Surgery, Herniorrhaphy, Pacemaker, Tonsillectomy Social History Information Source: Patient, Emergency Med Personnel, [facility] Records, Outside Facility Records Lives with: Spouse/Significant other Smoking Status: Never Smoker Last Time Smoked: 1995 Frequency of Alcohol Use: Rare Hx Recreational Drug Use: No Hx Prescription Drug Abuse: No - Advance Directive Resuscitation Status: Do Not Resuscitate Family History Family History: Hypertension Parental Family History Reviewed: Yes Children Family History Reviewed: Yes Sibling(s) Family History Reviewed.: Yes Medication/Allergy Allergies/Adverse Reactions: latex [Latex] Allergy (Unknown, Verified 12/26/17 17:42) Penicillins Allergy (Unknown, Verified 12/26/17 17:42) Review of Systems Constitutional: PRESENT: as per HPI, fatigue, weight gain. ABSENT: anorexia Eyes: ABSENT: visual disturbances Ears: ABSENT: hearing changes Cardiovascular: PRESENT: as per HPI, dyspnea on exertion, edema, orthropnea. ABSENT: chest pain, palpitations Respiratory: ABSENT: cough, hemoptysis Gastrointestinal: ABSENT: abdominal pain, constipation, diarrhea, hematemesis, hematochezia, nausea, vomiting Genitourinary: ABSENT: dysuria, hematuria Musculoskeletal: ABSENT: joint swelling Integumentary: ABSENT: rash, wounds Neurological: ABSENT: abnormal gait, abnormal speech, confusion, dizziness, focal weakness, syncope Psychiatric: ABSENT: anxiety, depression, homidical ideation, suicidal ideation Endocrine: ABSENT: cold intolerance, heat intolerance, polydipsia, polyuria Hematologic/Lymphatic: ABSENT: easy bleeding, easy bruising Physical Exam Vital Signs: Temp Pulse Resp BP Pulse Ox 97.5 F 89 20 121/78 100 12/27/17 03:55 12/27/17 03:55 12/27/17 03:55 12/27/17 03:55 12/27/17 03:55 Intake & Output 12/25/17 12/26/17 12/27/17 11:59 11:59 11:59 Weight 76.2 kg General appearance: PRESENT: cooperative, mild distress. ABSENT: disheveled Head exam: PRESENT: atraumatic, normocephalic Eye exam: PRESENT: conjunctiva pink, EOMI, PERRLA. ABSENT: scleral icterus Ear exam: PRESENT: normal external ear exam Mouth exam: PRESENT: moist, tongue midline Neck exam: ABSENT: carotid bruit, JVD, lymphadenopathy, thyromegaly Respiratory exam: PRESENT: clear to auscultation ally. ABSENT: rales, rhonchi, wheezes Cardiovascular exam: PRESENT: RRR. ABSENT: diastolic murmur, rubs, systolic murmur Pulses: PRESENT: normal dorsalis pedis pul, +1 pedal pulses bilateral. ABSENT: normal femoral pulses Vascular exam: PRESENT: pallor GI/Abdominal exam: PRESENT: normal bowel sounds, soft. ABSENT: distended, guarding, mass, organolmegaly, rebound, tenderness Rectal exam: PRESENT: deferred Extremities exam: PRESENT: pedal edema, tenderness, +2 edema Neurological exam: PRESENT: alert, awake, oriented to person, oriented to place , oriented to time, oriented to situation, CN II-XII grossly intact. ABSENT: motor sensory deficit Psychiatric exam: PRESENT: appropriate affect, normal mood. ABSENT: homicidal ideation, suicidal ideation Skin exam: PRESENT: cyanosis, dry, intact, mottled, warm. ABSENT: rash Results Laboratory Results: 12/27/17 04:45 12/27/17 04:45 12/26/17 12/27/17 12/27/17 22:25 04:45 04:45 WBC 4.5 RBC 4.71 Hgb 15.0 Hct 43.4 MCV 92 MCH 32.0 MCHC 34.7 RDW 20.7 H Plt Count 100 L Seg Neutrophils % 50.8 Lymphocytes % 22.5 Monocytes % 18.8 H Eosinophils % 6.9 H Basophils % 1.0 Absolute Neutrophils 2.3 Absolute Lymphocytes 1.0 Absolute Monocytes 0.8 Absolute Eosinophils 0.3 Absolute Basophils 0.0 Sodium 135.0 L Potassium 3.5 L Chloride 98 Carbon Dioxide 27 Anion Gap 10 BUN 15 Creatinine 0.78 Est GFR ( Amer) > 60 Est GFR (Non-Af Amer) > 60 Glucose 90 Calcium 9.7 TSH 2.85 12/26/17 12/26/17 12/27/17 22:25 22:25 04:45 Creatine Kinase 228 H 242 H CK-MB (CK-2) 9.78 H Troponin I 0.113 12/27/17 04:45 Creatine Kinase CK-MB (CK-2) 10.70 H Troponin I 0.136 Impressions: Chest X-Ray 12/26/17 17:48 IMPRESSION: Significantly increased right pleural effusion, now large in size. Moderate left pleural effusion. Right basilar atelectasis -airspace disease. Assessment & Plan - Diagnosis (1) CHF exacerbation Qualifiers: Heart failure type: unspecified Qualified Code(s): I50.9 - Heart failure, unspecified Is this a current diagnosis for this admission?: Yes Plan: CHF care set, optimize medical management. Follow-up chemistry (2) Bilateral lower extremity edema Is this a current diagnosis for this admission?: Yes Plan: Elevation, LEXX stockings, diuresis. - Time Time Spent: 50 to 70 Minutes
--- NOTE | 2017-12-27 08:13 | XCELERA REPORT ---
[address] [facility] [address] Lower Extremity Venous Evaluation Procedure: Color flow and duplex imaging of the veins of the right lower extremity as well as the left Common Femoral vein. Right Sided Venous Evaluation Normal vessel filling wall to wall, compression and augmentation as well as Colour flow down to the infrageniculate veins. Left Sided Venous Evaluation The left common femoral vein is fully compressible. Spontaneous and phasic flow is present in the left common femoral vein. Interpretation Summary No duplex evidence of DVT or obstruction in the right lower extremity nor in the left Common Femoral vein. Name: ELIZABETH THOMSON Girish Age: 67 yrs Gender: Male : 1950 Patient Status: Emergency Patient Location: ER Study Date: 12/26/2017 06:51 PM Reason For Study: right leg swelling and bruising Ordering Physician: DOYLE PUENTE Performed By: Kailee Downing : DOYLE PUENTE > Melquiades Paez
[2017-12-27] MEDS: NITROGLYCERIN 5 MG (0.2 MG/HR) PATCH.TD24 TD SCH (10:11)
[2017-12-27 12:05] LABS: CREATINE KINASE MB 7.98 ng/mL (<4.55); TROPONIN I 0.119 ng/mL
[2017-12-27] MEDS ORDERED: NORMAL SALINE 250 ML with FUROSEMIDE 250 MG IV PRN ×2 (12:43)
[2017-12-27] MEDS ORDERED: DEXTROSE 50%-WATER 25 GM/50 ML DISP.SYRIN IV PRN ×2 (13:08)
[2017-12-27] MEDS ORDERED: INSULIN REG, HUMAN 100 UNIT/ML 3 ML VIAL (PYX) SUBCUT PRN (13:08)
[2017-12-27] MEDS ORDERED: GLUCAGON,HUMAN RECOMB 1 MG INJ IM PRN (13:08)
[2017-12-27] MEDS ORDERED: DEXTROSE 40% GEL 15 GM TUBE PO PRN ×2 (13:08)
--- NOTE | 2017-12-27 13:12 | PDOC PROGRESS REPORT ---
Subjective Progress Note for:: 12/27/17 Subjective:: ELIZABETH THOMSON is a 67 year old male with a past medical history of deafness, coronary artery disease status post three-vessel bypass graft, congestive heart failure with an ejection fraction of 23%, status post permanent pacemaker. He was evaluated in October 2017 evaluated in [place] over 2-week hospitalization. Reportedly further invasive, aggressive measures were felt to be futile recommending aggressive medical management. He presents with 3 weeks of weight gain, despite increased doses of Lasix. Patient admits orthopnea and dietary indiscretion. Patient hard of hearing complains of shortness of breath he has contusion on the left foot that he says he was referred to orthopedics but they told him there was no fracture. His chest x-ray shows a large right pleural effusion increased from his prior visit here. [facility] and we have yet to confirm his medications. Reason For Visit: HEART FAILURE Physical Exam Vital Signs: Temp Pulse Resp BP Pulse Ox 98.5 F 114 H 20 102/68 99 12/27/17 11:42 12/27/17 11:42 12/27/17 11:42 12/27/17 11:42 12/27/17 11:42 Intake & Output 12/26/17 12/27/17 12/28/17 06:59 06:59 06:59 Intake Total 120 Output Total 600 1350 Balance -600 -1230 Weight 76.2 kg General appearance: PRESENT: no acute distress, well-developed, well-nourished Neck exam: PRESENT: JVD. ABSENT: carotid bruit, lymphadenopathy, thyromegaly Respiratory exam: PRESENT: rales, other - Decreased breath sounds right base. ABSENT: rhonchi, wheezes Cardiovascular exam: PRESENT: RRR, systolic murmur Pulses: PRESENT: other - Anasarca GI/Abdominal exam: PRESENT: normal bowel sounds, soft. ABSENT: distended, guarding, mass, organolmegaly, rebound, tenderness Extremities exam: PRESENT: other - Anasarca. Musculoskeletal exam: ABSENT: normal inspection - Discoloration consistent with subcutaneous hematoma left foot. States he was evaluated by orthopedics and told there were no fractures Neurological exam: PRESENT: alert, awake, oriented to person, oriented to place , CN II-XII grossly intact, motor sensory deficit - Left hemiplegia, other - Hard of hearing Skin exam: PRESENT: other - Contusion on left foot as described Results Laboratory Results: 12/27/17 04:45 12/27/17 04:45 12/26/17 12/27/17 12/27/17 22:25 04:45 04:45 WBC 4.5 RBC 4.71 Hgb 15.0 Hct 43.4 MCV 92 MCH 32.0 MCHC 34.7 RDW 20.7 H Plt Count 100 L Seg Neutrophils % 50.8 Lymphocytes % 22.5 Monocytes % 18.8 H Eosinophils % 6.9 H Basophils % 1.0 Absolute Neutrophils 2.3 Absolute Lymphocytes 1.0 Absolute Monocytes 0.8 Absolute Eosinophils 0.3 Absolute Basophils 0.0 Sodium 135.0 L Potassium 3.5 L Chloride 98 Carbon Dioxide 27 Anion Gap 10 BUN 15 Creatinine 0.78 Est GFR ( Amer) > 60 Est GFR (Non-Af Amer) > 60 Glucose 90 Calcium 9.7 TSH 2.85 12/26/17 12/26/17 12/27/17 22:25 22:25 04:45 Creatine Kinase 228 H 242 H CK-MB (CK-2) 9.78 H Troponin I 0.113 12/27/17 12/27/17 12/27/17 04:45 11:18 11:18 Creatine Kinase 201 H CK-MB (CK-2) 10.70 H 7.98 H Troponin I 0.136 0.119 Impressions: Chest X-Ray 12/26/17 17:48 IMPRESSION: Significantly increased right pleural effusion, now large in size. Moderate left pleural effusion. Right basilar atelectasis -airspace disease. Assessment & Plan - Diagnosis (1) Acute on chronic systolic congestive heart failure, NYHA class 1 Is this a current diagnosis for this admission?: Yes Plan: Initiate Coreg we will hold enalapril for now. Dobutamine Lasix infusion monitor blood pressure add ADRIANA inhibitor or arm as blood pressure allows transition patient to furosemide and Spironolactone. (2) Anasarca Is this a current diagnosis for this admission?: Yes Plan: Patient volume overloaded appears to be primarily right heart failure is lungs did not appear to have significant pulmonary edema. Will obtain echocardiogram to assess cardiac function as echocardiogram was not performed here and he is clinically declined since [place]. (3) Pleural effusion, right Is this a current diagnosis for this admission?: Yes Plan: Secondary to chronic and acute congestive heart failure. Will monitor her progress with dobutamine and Lasix infusion. When patient achieves dry weight if effusion has not mobilized will ask intervention to perform thoracentesis for therapeutic reasons. (4) Obstructive sleep apnea Is this a current diagnosis for this admission?: Yes Plan: Apply CPAP at night (5) Diabetes Qualifiers: Diabetes mellitus type: type 2 Chronic kidney disease stage: unspecified stage Is this a current diagnosis for this admission?: Yes Plan: Sliding scale check hemoglobin A1c (6) Hypertension Is this a current diagnosis for this admission?: Yes Plan: Patient's blood pressure is somewhat labile. Will monitor closely as it is trending on the low side of normal currently. (7) Cardiomyopathy Qualifiers: Cardiomyopathy type: ischemic Qualified Code(s): I25.5 - Ischemic cardiomyopathy Is this a current diagnosis for this admission?: Yes Plan: EF 20-25%. Will place patient on Coreg try to maintain his tachycardia less than 80. Initiate dobutamine and Lasix infusion for his anasarca. [facility]. If patient fails to mobilize his pleural effusion will perform thoracentesis. - Time Time Spent with patient: 35 or more minutes
[2017-12-27] MEDS: DOBUTAMINE HCL/D5W 500 MG/250 ML RTUINJ IV PRN (15:01)
[2017-12-27] MEDS: CARVEDILOL 6.25 MG TABLET PO SCH ×2 (15:24→21:39)
--- NOTE | 2017-12-27 18:37 | XCELERA REPORT ---
[address] [address] Transthoracic Echocardiogram Report Name: ELIZABETH THOMSON Age: 67 yrs Gender: Male : 1950 Patient Status: Inpatient Patient Location: [address] [place] [address] Study Date: 12/27/2017 01:51 PM Height: 70 in Weight: 167 lb BSA: 1.9 m2 Procedure: A complete two-dimensional transthoracic echocardiogram was performed (2D, M-mode, spectral and color flow Doppler). The study was technically adequate with some images being suboptimal in quality. Reason For Study: CHF/cardiomyopathy Ordering Physician: PALLAVI LACY Performed By: Adelina Harp Interpretation Summary Left ventricular systolic function is severely reduced. The Ejection Fraction estimate is <20% There is borderline concentric left ventricular hypertrophy. The left ventricle is grossly normal size. Doppler measurements suggest pseudonormalized left ventricular relaxation, which is associated with grade II/IV or mild to moderate diastolic dysfunction There is inferior wall akinesis There is severe global hypokinesis of the left ventricle. The right ventricle is moderately dilated. The right ventricular systolic function is moderately reduced. The right atrium is moderate to severely dilated. The left atrium is moderately dilated. There is no mitral valve stenosis. There is a mild to moderate amount of mitral regurgitation No aortic regurgitation is present. There is no aortic valve stenosis There is a moderate amount of tricuspid regurgitation Right ventricular systolic pressure is estimated to be elevated at 40-50mmHg. There is moderate pulmonary hypertension by echo The aortic root is not well visualized but is probably normal size. The inferior vena cava appeared dilated and decreased < 50% with respiration (RAP 15-20 mmHg) There is no pericardial effusion. MMode/2D Measurements & Calculations RVDd: 3.7 cm LVIDd: 5.1 cm FS: 4.8 % EPSS: 1.6 cm IVSd: 0.89 cm LVIDs: 4.8 cm EDV(Teich): 123.5 ml LVPWd: 0.88 cm ESV(Teich): 110.1 ml EF(Teich): 10.9 % Ao root diam: 2.9 cm Ao root area: 6.7 cm2 LA dimension: 4.4 cm Doppler Measurements & Calculations MV E max amena: MV P1/2t max amena: Ao V2 max: LV V1 max P.0 cm/sec 80.0 cm/sec 60.3 cm/sec 0.63 mmHg MV P1/2t: 40.5 msec Ao max P.5 mmHgLV V1 max: MVA(P1/2t): 5.4 cm2 39.7 cm/sec MV dec slope: 578.7 cm/sec2 MV dec time: 0.13 sec PA V2 max: TR max amena: MV P1/2t-pr_phl: 55.3 cm/sec 270.1 cm/sec 40.5 msec PA max PG: TR max P.2 mmHg 1.2 mmHg Left Ventricle The left ventricle is grossly normal size. There is borderline concentric left ventricular hypertrophy. Left ventricular systolic function is severely reduced. The Ejection Fraction estimate is <20%. Doppler measurements suggest pseudonormalized left ventricular relaxation, which is associated with grade II/IV or mild to moderate diastolic dysfunction. There is inferior wall akinesis. There is severe global hypokinesis of the left ventricle. Right Ventricle The right ventricle is moderately dilated. There is normal right ventricular wall thickness. The right ventricular systolic function is moderately reduced. Atria The right atrium is moderate to severely dilated. The left atrium is moderately dilated. Interarterial septum not well visualized and not well dopplered. Cannot comment on ASD/PFO presence. Mitral Valve The mitral valve leaflets are sclerotic, but show no functional abnormalities. There is no mitral valve stenosis. There is a mild to moderate amount of mitral regurgitation. Aortic Valve The aortic valve is grossly normal. There is no aortic valve stenosis. No aortic regurgitation is present. Tricuspid Valve The tricuspid valve is not well visualized, but is grossly normal. There is no tricuspid stenosis. There is a moderate amount of tricuspid regurgitation. Right ventricular systolic pressure is estimated to be elevated at 40-50mmHg. There is moderate pulmonary hypertension by echo. Pulmonic Valve The pulmonic valve is not well visualized. Great Vessels The aortic root is not well visualized but is probably normal size. The inferior vena cava appeared dilated and decreased < 50% with respiration (RAP 15-20 mmHg). Effusions There is no pericardial effusion. : PALLAVI LACY > Anatoliy Pickett
[2017-12-28] MEDS: HEPARIN SOD (PORCINE) 5,000 UNIT/ML 1 ML SYRINGE SUBCUT SCH ×3 (05:08→21:40)
[2017-12-28 05:17] LABS: HEMATOCRIT 35.1 % (37.9-51.0); MEAN CORPUSCULAR HEMOGLOBIN 31.6 pg (27.0-33.4); MEAN CORPUSCULAR HGB CONC 34.6 g/dL (32.0-36.0); MEAN CORPUSCULAR VOLUME 92 fl (80-97); RED BLOOD COUNT 3.83 10^6/uL (4.35-5.55); RED CELL DISTRIBUTION WIDTH 19.8 % (11.5-14.0); WHITE BLOOD COUNT 4.8 10^3/uL (4.0-10.5)
[2017-12-28 05:21] LABS: HEMOGLOBIN 12.1 g/dL (13.5-17.0)
[2017-12-28 05:35] LABS: ANION GAP 6 (5-19); BLOOD UREA NITROGEN 16 mg/dL (7-20); CALCIUM 8.7 mg/dL (8.4-10.2); CARBON DIOXIDE 29 mmol/L (22-30); CHLORIDE 97 mmol/L (98-107); GLUCOSE 89 mg/dL (75-110); POTASSIUM 3.6 mmol/L (3.6-5.0); SODIUM 132.1 mmol/L (137-145)
[2017-12-28 05:40] LABS: ABSOLUTE LYMPHOCYTES# (MANUAL) 1.8 10^3/uL (0.5-4.7); ABSOLUTE MONOCYTES # (MANUAL) 0.7 10^3/uL (0.1-1.4); ABSOLUTE NEUTROPHILS# (MANUAL) 2.1 10^3/uL (1.7-8.2); BAND NEUTROPHILS % (MANUAL) 2 % (3-5); BASOPHILS % (MANUAL) 0 % (0-2); EOSINOPHILS % (MANUAL) 5 % (0-6); LYMPHOCYTES % (MANUAL) 37 % (13-45); MONOCYTES % (MANUAL) 14 % (3-13); SEGMENTED NEUTROPHILS % (MAN) 42 % (42-78); TOTAL CELLS COUNTED 100
[2017-12-28 05:42] LABS: ANISOCYTOSIS 2+; OVALOCYTES SLIGHT; PLATELET COMMENT DECREASED; POIKILOCYTOSIS SLIGHT; TOXIC VACUOLATION PRESENT
[2017-12-28 05:43] LABS: PLATELET COUNT 87 10^3/uL (150-450)
[2017-12-28] MEDS ORDERED: (PENDING PHARMACY ID) (Omega-3 Fatty Acids/Fish Oil [Fish Oil 1,000 Mg Capsule] 2 CAP) PO SCH (10:00)
[2017-12-28] MEDS: NITROGLYCERIN 5 MG (0.2 MG/HR) PATCH.TD24 TD SCH (10:33)
[2017-12-28] MEDS: SPIRONOLACTONE 25 MG TABLET PO SCH (10:34)
[2017-12-28] MEDS: ISOSORBIDE MONONITRATE 30 MG TAB.ER.24H PO SCH (10:34)
[2017-12-28] MEDS: POTASSIUM CHLORIDE 10 MEQ CAPSULE.ER PO SCH ×2 (10:34→21:35)
[2017-12-28] MEDS: CARVEDILOL 6.25 MG TABLET PO SCH ×2 (10:34→21:36)
[2017-12-28] MEDS: OMEGA-3 ACID ETHYL ESTERS 1 GM CAPSULE PO SCH ×2 (10:34→18:02)
[2017-12-28] MEDS: POLYETHYLENE GLYCOL 3350 POWDER 17 GM/1 PACKET PO SCH (10:35)
[2017-12-28] MEDS: FLUTICASONE NASAL SPRAY 50 MCG/SPRY 120 SPRAY/16 GM NASL SCH (10:35)
[2017-12-28] MEDS: MAGNESIUM OXIDE 400 MG TABLET PO SCH ×2 (10:35→18:02)
[2017-12-28] MEDS: RANOLAZINE 500 MG TAB.SR.12H PO SCH ×2 (10:35→21:41)
[2017-12-28] MEDS: FUROSEMIDE INJ/PF 20 MG/2 ML SDV IV SCH ×2 (13:18→21:35)
[2017-12-28] MEDS: DOBUTAMINE HCL/D5W 500 MG/250 ML RTUINJ IV PRN (13:18)
--- NOTE | 2017-12-28 13:55 | PDOC PROGRESS REPORT ---
Subjective Progress Note for:: 12/28/17 Subjective:: ELIZABETH THOMSON is a 67 year old male with a past medical history of deafness, coronary artery disease status post three-vessel bypass graft, congestive heart failure with an ejection fraction of 23%, status post permanent pacemaker. He was evaluated in October 2017 evaluated in [place] over 2-week hospitalization. Reportedly further invasive, aggressive measures were felt to be futile recommending aggressive medical management. He presents with 3 weeks of weight gain, despite increased doses of Lasix. Patient admits orthopnea and dietary indiscretion. Echocardiogram performed patient's ejection fraction is less than 20% and significant right heart failure as well.. Patient was initiated on dobutamine yesterday and a Lasix infusion. Sometime during the night he developed some hypotension with blood pressures of 70 systolic and the Lasix infusion was discontinued. This morning he has improvement in the edema in the lower extremity. His blood pressure is on the low end of normal. And patient has no specific complaints symptomatically he feels improved. Reason For Visit: HEART FAILURE Physical Exam Vital Signs: Temp Pulse Resp BP Pulse Ox 98.0 F 78 22 H 101/57 L 100 12/28/17 11:29 12/28/17 13:00 12/28/17 11:29 12/28/17 13:00 12/28/17 11:29 Intake & Output 12/27/17 12/28/17 12/29/17 06:59 06:59 06:59 Intake Total 1450 427 Output Total 600 4700 250 Balance -600 -3250 177 Weight 76.2 kg 72.7 kg Results Laboratory Results: 12/28/17 04:14 12/28/17 04:14 12/28/17 12/28/17 04:14 04:14 WBC 4.8 RBC 3.83 L Hgb 12.1 L D Hct 35.1 L MCV 92 MCH 31.6 MCHC 34.6 RDW 19.8 H Plt Count 87 L Seg Neutrophils % Not Reportable Lymphocytes % Not Reportable Monocytes % Not Reportable Eosinophils % Not Reportable Basophils % Not Reportable Absolute Neutrophils Not Reportable Absolute Lymphocytes Not Reportable Absolute Monocytes Not Reportable Absolute Eosinophils Not Reportable Absolute Basophils Not Reportable Sodium 132.1 L Potassium 3.6 Chloride 97 L Carbon Dioxide 29 Anion Gap 6 BUN 16 Creatinine 0.80 Est GFR ( Amer) > 60 Est GFR (Non-Af Amer) > 60 Glucose 89 Calcium 8.7 Magnesium 1.6 12/26/17 12/26/17 12/27/17 22:25 22:25 04:45 Creatine Kinase 228 H 242 H CK-MB (CK-2) 9.78 H Troponin I 0.113 12/27/17 12/27/17 12/27/17 04:45 11:18 11:18 Creatine Kinase 201 H CK-MB (CK-2) 10.70 H 7.98 H Troponin I 0.136 0.119 Impressions: Chest X-Ray 12/26/17 17:48 IMPRESSION: Significantly increased right pleural effusion, now large in size. Moderate left pleural effusion. Right basilar atelectasis -airspace disease. Assessment & Plan - Diagnosis (1) Acute on chronic systolic congestive heart failure, NYHA class 1 Is this a current diagnosis for this admission?: Yes Plan: Discontinue Lasix infusion due to hypotension. Continue dobutamine at 5 mcg/kg/ min. Begin Lasix IV 20 mg every 8 hours and Spironolactone. Monitor electrolytes daily monitor for hypotension. Continue Coreg. Patient was on metoprolol 100 mg but in light of his hypotension this may be too aggressive we will continue the Coreg. (2) Anasarca Is this a current diagnosis for this admission?: Yes Plan: Improved continue diuresis and initiate fluid restriction 1200 mL's daily (3) Pleural effusion, right Is this a current diagnosis for this admission?: Yes Plan: Repeat chest x-ray in a.m on Saturday. If still has significant pleural effusion will ask interventional radiology for thoracentesis.. (4) Obstructive sleep apnea Is this a current diagnosis for this admission?: Yes Plan: CPAP at night (5) Diabetes Qualifiers: Diabetes mellitus type: type 2 Chronic kidney disease stage: unspecified stage Is this a current diagnosis for this admission?: Yes Plan: Sliding scale hemoglobin A1c is 5.5 indicating excellent glycemic control (6) Hypertension Is this a current diagnosis for this admission?: Yes Plan: Currently borderline low blood pressure. Continue to monitor (7) Cardiomyopathy Qualifiers: Cardiomyopathy type: ischemic Qualified Code(s): I25.5 - Ischemic cardiomyopathy Is this a current diagnosis for this admission?: Yes Plan: Ejection fraction less than 20% by echocardiography with significant right ventricular dysfunction. Patient has an overall poor prognosis we will attempt to maximize medical therapy - Time Time Spent with patient: 25-34 minutes
[2017-12-28] MEDS: ASPIRIN 81 MG TABLET, ENT COATED PO SCH (21:36)
[2017-12-29] MEDS: HEPARIN SOD (PORCINE) 5,000 UNIT/ML 1 ML SYRINGE SUBCUT SCH ×3 (05:08→21:36)
[2017-12-29] MEDS: LANSOPRAZOLE 15 MG TAB.RAP.DR PO SCH (05:16)
[2017-12-29] MEDS: FUROSEMIDE INJ/PF 20 MG/2 ML SDV IV SCH (05:16)
[2017-12-29] MEDS ORDERED: (PENDING PHARMACY ID) (Sertraline Hcl [Zoloft] 25 MG) PO SCH (08:00)
[2017-12-29] MEDS: SERTRALINE HCL 50 MG TABLET PO SCH (09:26)
[2017-12-29] MEDS: SPIRONOLACTONE 25 MG TABLET PO SCH (09:27)
[2017-12-29] MEDS: NITROGLYCERIN 5 MG (0.2 MG/HR) PATCH.TD24 TD SCH (09:27)
[2017-12-29] MEDS: ISOSORBIDE MONONITRATE 30 MG TAB.ER.24H PO SCH (09:27)
[2017-12-29] MEDS: LOSARTAN POTASSIUM 25 MG TABLET PO SCH (09:27)
[2017-12-29] MEDS: RANOLAZINE 500 MG TAB.SR.12H PO SCH ×2 (09:27→21:34)
[2017-12-29] MEDS: FLUTICASONE NASAL SPRAY 50 MCG/SPRY 120 SPRAY/16 GM NASL SCH (09:28)
[2017-12-29] MEDS: MAGNESIUM OXIDE 400 MG TABLET PO SCH ×2 (09:28→17:35)
[2017-12-29] MEDS: CARVEDILOL 6.25 MG TABLET PO SCH ×2 (09:28→21:35)
[2017-12-29] MEDS: POTASSIUM CHLORIDE 10 MEQ CAPSULE.ER PO SCH ×2 (09:28→21:35)
[2017-12-29] MEDS: OMEGA-3 ACID ETHYL ESTERS 1 GM CAPSULE PO SCH ×2 (09:28→17:35)
[2017-12-29] MEDS: POLYETHYLENE GLYCOL 3350 POWDER 17 GM/1 PACKET PO SCH (09:29)
--- NOTE | 2017-12-29 10:25 | PDOC PROGRESS REPORT ---
Subjective Progress Note for:: 12/29/17 Subjective:: ELIZABETH THOMSON is a 67 year old male with a past medical history of deafness, coronary artery disease status post three-vessel bypass graft, congestive heart failure with an ejection fraction of 23%, status post permanent pacemaker. He was evaluated in October 2017 evaluated in [place] over 2-week hospitalization. Reportedly further invasive, aggressive measures were felt to be futile recommending aggressive medical management. He presents with 3 weeks of weight gain, despite increased doses of Lasix. Patient admits orthopnea and dietary indiscretion. Echocardiogram performed patient's ejection fraction is less than 20% and significant right heart failure as well.. Patient was initiated on dobutamine yesterday and a Lasix infusion. Sometime during the night he developed some hypotension with blood pressures of 70 systolic and the Lasix infusion was discontinued. Patient has mobilized approximately 6 L of fluid since his admission. He appears to be tolerating the every 8 hour IV Lasix. He has had significant improvement in his edema. Complaining of right leg tenderness there is a contusion on his right leg from a fall on the bathtub and some localized venous stasis there is no break in the skin he does not appear to have a cellulitis at this time. His blood pressures continue to remain in the 90s asymptomatically is improved. Reason For Visit: HEART FAILURE Physical Exam Vital Signs: Temp Pulse Resp BP Pulse Ox 97.6 F 76 20 96/65 L 97 12/29/17 07:17 12/29/17 07:17 12/29/17 07:17 12/29/17 07:17 12/29/17 07:17 Intake & Output 12/28/17 12/29/17 12/30/17 06:59 06:59 06:59 Intake Total 1450 664 Output Total 4700 3000 Balance -8420 -6896 Weight 72.7 kg 75.9 kg General appearance: PRESENT: no acute distress, well-developed, well-nourished Head exam: PRESENT: atraumatic, normocephalic Ear exam: PRESENT: other - Hard of hearing Neck exam: ABSENT: carotid bruit, JVD, lymphadenopathy, thyromegaly Respiratory exam: PRESENT: clear to auscultation ally. ABSENT: rales, rhonchi, wheezes Cardiovascular exam: PRESENT: RRR. ABSENT: diastolic murmur, rubs, systolic murmur Pulses: PRESENT: normal dorsalis pedis pul GI/Abdominal exam: PRESENT: normal bowel sounds, soft. ABSENT: distended, guarding, mass, organolmegaly, rebound, tenderness Extremities exam: PRESENT: full ROM, pedal edema, +1 edema, other - 6 x 4 cm hematoma right lower extremity area of erythema consistent with venous stasis no lymphangitis. ABSENT: calf tenderness, clubbing Musculoskeletal exam: PRESENT: normal inspection, tenderness - Right lower extremity Neurological exam: PRESENT: alert, awake, CN II-XII grossly intact, motor sensory deficit, other - Diffuse debility Results Laboratory Results: 12/28/17 04:14 12/28/17 04:14 12/26/17 12/26/17 12/27/17 22:25 22:25 04:45 Creatine Kinase 228 H 242 H CK-MB (CK-2) 9.78 H Troponin I 0.113 12/27/17 12/27/17 12/27/17 04:45 11:18 11:18 Creatine Kinase 201 H CK-MB (CK-2) 10.70 H 7.98 H Troponin I 0.136 0.119 Impressions: Chest X-Ray 12/26/17 17:48 IMPRESSION: Significantly increased right pleural effusion, now large in size. Moderate left pleural effusion. Right basilar atelectasis -airspace disease. Assessment & Plan - Diagnosis (1) Acute on chronic heart failure with reduced ejection fraction and diastolic dysfunction Is this a current diagnosis for this admission?: Yes Plan: Discontinue IV Lasix changed to p.o. Lasix twice daily continue Spironolactone and Coreg. Patient is at the end-stage of his cardiomyopathy. We will plan to discontinue dobutamine tomorrow. We will need to discuss discharge planning with the and the patient at this point given he is at the end-stage of his cardiomyopathy he most likely would benefit from hospice or palliative care. If not I for see the patient returning to the hospital frequently for exacerbations of his chronic congestive heart failure which is at its end-stage. (2) Acute on chronic systolic congestive heart failure, NYHA class 1 Is this a current diagnosis for this admission?: Yes (3) Anasarca Is this a current diagnosis for this admission?: Yes Plan: Improved transition to p.o. Lasix today continue dobutamine for an additional 24 hours. (4) Pleural effusion, right Is this a current diagnosis for this admission?: Yes Plan: Repeat chest x-ray today if significant effusion consider having thoracentesis performed unless hospice is family and patient. (5) Obstructive sleep apnea Is this a current diagnosis for this admission?: Yes Plan: CPAP at night (6) Diabetes Qualifiers: Diabetes mellitus type: type 2 Chronic kidney disease stage: unspecified stage Is this a current diagnosis for this admission?: Yes Plan: Sliding scale hemoglobin A1c is 5.5 indicating excellent glycemic control (7) Hypertension Is this a current diagnosis for this admission?: Yes Plan: Currently borderline low blood pressure. Continue to monitor (8) Cardiomyopathy Qualifiers: Cardiomyopathy type: ischemic Qualified Code(s): I25.5 - Ischemic cardiomyopathy Is this a current diagnosis for this admission?: Yes Plan: Ejection fraction less than 20% by echocardiography with significant right ventricular dysfunction. Patient has an overall poor prognosis we will attempt to maximize medical therapy
[2017-12-29] MEDS: DOBUTAMINE HCL/D5W 500 MG/250 ML RTUINJ IV PRN (13:17)
--- NOTE | 2017-12-29 13:50 | RADIOLOGY REPORT (SQ) ---
EXAM DESCRIPTION: CHEST 2 VIEWS COMPLETED DATE/TIME: 12/29/2017 11:15 am REASON FOR STUDY: CHF right pleural effusion COMPARISON: 03/29/2017 TECHNIQUE: Frontal and lateral radiographic views of the chest acquired. NUMBER OF VIEWS: Two view. LIMITATIONS: None. FINDINGS: LUNGS AND PLEURA: No pneumothorax. Bilateral pleural effusion, large on the right, small on the left. Bilateral basilar airspace disease. MEDIASTINUM AND HILAR STRUCTURES: Stable. HEART AND VASCULAR STRUCTURES: Stable. BONES: No acute findings. HARDWARE: CABG. Cardiac defibrillator. OTHER: No other significant finding. IMPRESSION: Bilateral pleural effusion, large on the right, small on the left. Bilateral basilar ai rspace disease. TECHNICAL DOCUMENTATION: JOB ID: [id number] 2010 [employer]- All Rights Reserved Reading location - IP/workstation name: [email or web address]
[2017-12-29] MEDS: FUROSEMIDE 40 MG TABLET PO SCH (17:34)
[2017-12-29] MEDS: ASPIRIN 81 MG TABLET, ENT COATED PO SCH (21:35)
[2017-12-30] MEDS ORDERED: ONDANSETRON HCL INJ/PF 4 MG/2 ML SDV IV ONE (05:00)
[2017-12-30] MEDS: HEPARIN SOD (PORCINE) 5,000 UNIT/ML 1 ML SYRINGE SUBCUT SCH (05:16)
[2017-12-30] MEDS: LANSOPRAZOLE 15 MG TAB.RAP.DR PO SCH (05:17)
[2017-12-30 05:24] LABS: HEMATOCRIT 32.3 % (37.9-51.0); HEMOGLOBIN 11.2 g/dL (13.5-17.0); MEAN CORPUSCULAR HGB CONC 34.8 g/dL (32.0-36.0); MEAN CORPUSCULAR VOLUME 92 fl (80-97); RED BLOOD COUNT 3.51 10^6/uL (4.35-5.55); RED CELL DISTRIBUTION WIDTH 20.1 % (11.5-14.0); WHITE BLOOD COUNT 4.5 10^3/uL (4.0-10.5)
[2017-12-30 05:41] LABS: ANION GAP 8 (5-19); BLOOD UREA NITROGEN 17 mg/dL (7-20); CALCIUM 8.7 mg/dL (8.4-10.2); CARBON DIOXIDE 24 mmol/L (22-30); CHLORIDE 96 mmol/L (98-107); GLUCOSE 97 mg/dL (75-110); POTASSIUM 4.3 mmol/L (3.6-5.0); SODIUM 128.2 mmol/L (137-145)
[2017-12-30 06:01] LABS: CREATINE KINASE MB 2.83 ng/mL (<4.55); TROPONIN I 0.063 ng/mL
[2017-12-30 06:27] LABS: PLATELET COUNT 73 10^3/uL (150-450)
[2017-12-30 06:34] LABS: ABSOLUTE LYMPHOCYTES# (MANUAL) 0.9 10^3/uL (0.5-4.7); ABSOLUTE MONOCYTES # (MANUAL) 0.6 10^3/uL (0.1-1.4); ABSOLUTE NEUTROPHILS# (MANUAL) 2.8 10^3/uL (1.7-8.2); BAND NEUTROPHILS % (MANUAL) 1 % (3-5); BASOPHILS % (MANUAL) 0 % (0-2); EOSINOPHILS % (MANUAL) 3 % (0-6); LYMPHOCYTES % (MANUAL) 20 % (13-45); METAMYELOCYTES % (MANUAL) 1 % (0); MONOCYTES % (MANUAL) 14 % (3-13); SEGMENTED NEUTROPHILS % (MAN) 61 % (42-78); TOTAL CELLS COUNTED 100
[2017-12-30 06:36] LABS: ANISOCYTOSIS 2+; OVALOCYTES SLIGHT; PLATELET COMMENT DECREASED; POIKILOCYTOSIS SLIGHT; POLYCHROMASIA SLIGHT
[2017-12-30] MEDS: LOSARTAN POTASSIUM 25 MG TABLET PO SCH (07:35)
[2017-12-30] MEDS: SERTRALINE HCL 50 MG TABLET PO SCH (07:38)
[2017-12-30] MEDS: ACETAMINOPHEN 325 MG TABLET PO PRN (07:50)
[2017-12-30] MEDS: POLYETHYLENE GLYCOL 3350 POWDER 17 GM/1 PACKET PO SCH (10:21)
[2017-12-30] MEDS: CARVEDILOL 6.25 MG TABLET PO SCH ×2 (10:37→22:05)
[2017-12-30] MEDS: ISOSORBIDE MONONITRATE 30 MG TAB.ER.24H PO SCH (10:37)
[2017-12-30] MEDS: POTASSIUM CHLORIDE 10 MEQ CAPSULE.ER PO SCH ×2 (10:37→22:04)
[2017-12-30] MEDS: MAGNESIUM OXIDE 400 MG TABLET PO SCH ×2 (10:37→17:40)
[2017-12-30] MEDS: OMEGA-3 ACID ETHYL ESTERS 1 GM CAPSULE PO SCH ×2 (10:38→17:41)
[2017-12-30] MEDS: SPIRONOLACTONE 25 MG TABLET PO SCH (10:38)
[2017-12-30] MEDS: FUROSEMIDE 40 MG TABLET PO SCH ×2 (10:38→17:48)
[2017-12-30] MEDS: NITROGLYCERIN 5 MG (0.2 MG/HR) PATCH.TD24 TD SCH (10:38)
[2017-12-30] MEDS: FLUTICASONE NASAL SPRAY 50 MCG/SPRY 120 SPRAY/16 GM NASL SCH (10:38)
[2017-12-30] MEDS: RANOLAZINE 500 MG TAB.SR.12H PO SCH ×2 (10:39→22:05)
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
[2017-12-30] MEDS: DOBUTAMINE HCL/D5W 500 MG/250 ML RTUINJ IV PRN (12:07)
[2017-12-30 12:10] LABS: CREATINE KINASE MB 3.35 ng/mL (<4.55); TROPONIN I 0.049 ng/mL
[2017-12-30 17:36] LABS: CREATINE KINASE MB 3.85 ng/mL (<4.55); TROPONIN I 0.051 ng/mL
[2017-12-30] MEDS: ASPIRIN 81 MG TABLET, ENT COATED PO SCH (22:05)
[2017-12-31 06:08] LABS: ABSOLUTE EOSINOPHILS # (AUTO) 0.1 10^3/uL (0.0-0.6); ABSOLUTE LYMPHOCYTES (AUTO) 0.8 10^3/uL (0.5-4.7); ABSOLUTE NEUT (AUTO) 3.5 10^3/uL (1.7-8.2); BASOPHILS % (AUTO) 0.4 % (0-2); EOSINOPHILS % (AUTO) 2.8 % (0-6); HEMATOCRIT 32.7 % (37.9-51.0); HEMOGLOBIN 11.5 g/dL (13.5-17.0); MEAN CORPUSCULAR HEMOGLOBIN 32.4 pg (27.0-33.4); MEAN CORPUSCULAR HGB CONC 35.2 g/dL (32.0-36.0); MEAN CORPUSCULAR VOLUME 92 fl (80-97); MONOCYTES % (AUTO) 18.6 % (3-13); RED BLOOD COUNT 3.54 10^6/uL (4.35-5.55); SEGMENTED NEUTROPHILS % (AUTO) 64.2 % (42-78); TOTAL CELLS COUNTED % (AUTO) 100 %; WHITE BLOOD COUNT 5.4 10^3/uL (4.0-10.5)
[2017-12-31 06:15] LABS: ALANINE AMINOTRANSFERASE 42 U/L (21-72); ALBUMIN 2.6 g/dL (3.5-5.0); ALKALINE PHOSPHATASE 205 U/L (38-126); ANION GAP 11 (5-19); ASPARTATE AMINO TRANSFERASE 40 U/L (17-59); BILIRUBIN,TOTAL 3.4 mg/dL (0.2-1.3); BLOOD UREA NITROGEN 18 mg/dL (7-20); CALCIUM 8.6 mg/dL (8.4-10.2); CARBON DIOXIDE 24 mmol/L (22-30); CHLORIDE 90 mmol/L (98-107); GLUCOSE 194 mg/dL (75-110); POTASSIUM 4.3 mmol/L (3.6-5.0); SODIUM 125.4 mmol/L (137-145); TOTAL PROTEIN 4.7 g/dL (6.3-8.2)
[2017-12-31 06:34] LABS: PLATELET COUNT 78 10^3/uL (150-450)
[2017-12-31] MEDS: LANSOPRAZOLE 15 MG TAB.RAP.DR PO SCH (06:50)
--- NOTE | 2017-12-31 09:51 | RADIOLOGY REPORT (SQ) ---
EXAM DESCRIPTION: CHEST SINGLE VIEW COMPLETED DATE/TIME: 12/31/2017 9:41 am REASON FOR STUDY: S/P RT THORACENTESIS COMPARISON: 12/29/2017 EXAM PARAMETERS: NUMBER OF VIEWS: One view. TECHNIQUE: Single frontal radiographic view of the chest acquired. RADIATION DOSE: NA LIMITATIONS: None. FINDINGS: LUNGS AND PLEURA: Right-sided pleural effusion is slightly smaller following thoracentesis . No pneumothorax. There is a small left effusion. MEDIASTINUM AND HILAR STRUCTURES: No masses. Contour normal. HEART AND VASCULAR STRUCTURES: Stable in appearance. BONES: No acute findings. HARDWARE: Unchanged. OTHER: No other significant finding. IMPRESSION: No pneumothorax following right-sided thoracentesis. TECHNICAL DOCUMENTATION: JOB ID: [id number] [employer]- All Rights Reserved Reading location - IP/workstation name: [email or web address]
[2017-12-31] MEDS: LOSARTAN POTASSIUM 25 MG TABLET PO SCH (10:07)
[2017-12-31] MEDS: SERTRALINE HCL 50 MG TABLET PO SCH (10:08)
[2017-12-31] MEDS: FUROSEMIDE 40 MG TABLET PO SCH (10:09)
[2017-12-31] MEDS: MAGNESIUM OXIDE 400 MG TABLET PO SCH ×2 (10:09→18:19)
[2017-12-31] MEDS: ISOSORBIDE MONONITRATE 30 MG TAB.ER.24H PO SCH (10:09)
[2017-12-31] MEDS: POTASSIUM CHLORIDE 10 MEQ CAPSULE.ER PO SCH ×2 (10:10→21:48)
[2017-12-31] MEDS: OMEGA-3 ACID ETHYL ESTERS 1 GM CAPSULE PO SCH (10:10)
[2017-12-31] MEDS: CARVEDILOL 6.25 MG TABLET PO SCH (10:11)
[2017-12-31] MEDS: FLUTICASONE NASAL SPRAY 50 MCG/SPRY 120 SPRAY/16 GM NASL SCH (10:11)
[2017-12-31] MEDS: RANOLAZINE 500 MG TAB.SR.12H PO SCH ×2 (10:12→21:48)
[2017-12-31] MEDS: DOBUTAMINE HCL/D5W 500 MG/250 ML RTUINJ IV PRN (10:12)
[2017-12-31] MEDS: NITROGLYCERIN 5 MG (0.2 MG/HR) PATCH.TD24 TD SCH (10:12)
[2017-12-31] MEDS: POLYETHYLENE GLYCOL 3350 POWDER 17 GM/1 PACKET PO SCH (10:18)
--- NOTE | 2017-12-31 11:30 | RADIOLOGY REPORT (SQ) ---
EXAM DESCRIPTION: U/S THORACENTESIS WITH IMAGING COMPLETED DATE/TIME: 12/31/2017 10:13 am REASON FOR STUDY: Large right pleural effusion COMPARISON: None. LIMITATIONS: None. PROCEDURE: Procedure, risks, benefit, and alternative explained to patient who then gave written con sent. The right posterior chest wall was marked using ultrasound guidance. A time-out was called fo r correct marking verification. Chest prepped and draped using sterile technique. Local anesthesia a chieved using 3.5 ml of 1% lidocaine injection. A 6fr Safe-T- Centesis set was introduced into the r ight pleural space. Fluid was aspirated. The catheter was removed and the entry site was covered wi th sterile bandage. No immediate complications noted. Therapeutic only, no specimens were sent for t esting. No pneumothorax on the immediate post procedure chest x-ray dictated separately Images acquired during the procedure were stored on PACS. FINDINGS: ENTRY SITE: Right posterior pleural space FLUID VOLUME: 700 mL FLUID ANALYSIS: Clear yellow fluid, therapeutic only, no specimens were sent for testing OTHER: Therapeutic only IMPRESSION: SUCCESSFUL THORACENTESIS USING ULTRASOUND GUIDANCE. COMMENT: Patient medication list reviewed: Yes- Quality ID# [id number]:Eligible professional attests to doc umenting in the medical record they obtained, updated, or reviewed the patient's current medications. TECHNICAL DOCUMENTATION: JOB ID: [id number] 1200 [employer]- All Rights Reserved Reading location - IP/workstation name: [email or web address]
--- NOTE | 2017-12-31 12:22 | RADIOLOGY REPORT (SQ) ---
EXAM DESCRIPTION: CHEST SINGLE VIEW COMPLETED DATE/TIME: 12/31/2017 11:42 am REASON FOR STUDY: S/P RT THORACENTESIS - 2 HOUR FILM COMPARISON: Two-view chest 12/29/2017 Ultrasound thoracentesis right chest 12/31/2017 Immediate post thoracentesis chest film 12/31/2017 0930 hours EXAM PARAMETERS: NUMBER OF VIEWS: One view. TECHNIQUE: Single frontal radiographic view of the chest acquired. RADIATION DOSE: NA LIMITATIONS: None. FINDINGS: LUNGS AND PLEURA: Post right thoracentesis. There is still a small to moderate residual p leural fluid with pleural thickening, unchanged from 12/31/2017 0930 hours. No pneumothorax. Trace left pleural effusion persists, stable. Bibasilar consolidation likely atelectasis, stable. MEDIASTINUM AND HILAR STRUCTURES: No masses. Contour normal. HEART AND VASCULAR STRUCTURES: Stable moderate to marked cardiomegaly, old sternotomy with CABG. BONES: No acute findings. HARDWARE: Left-sided single lead pacemaker OTHER: No other significant finding. IMPRESSION: No pneumothorax 2 hours post right thoracentesis. Persistent small to moderate right pleural fluid. TECHNICAL DOCUMENTATION: JOB ID: [id number] [employer]- All Rights Reserved Reading location - IP/workstation name: [email or web address]
--- NOTE | 2017-12-31 12:59 | PDOC PROGRESS REPORT ---
Subjective Progress Note for:: 12/31/17 Subjective:: LOBITO THOMSON is a 67 year old male who presented to the emergency room with a 3-week history of gradual weight gain and swelling of his feet and legs with shortness of breath despite taking additional doses of Lasix over and above the prescribed dosage. Lobito further admitted worsening orthopnea and also admitted that dietary indiscretion was an aggravating factor for his edema and dyspnea. He admits a past medical history of bilateral neural deafness, coronary artery disease status post three-vessel bypass graft, chronic systolic congestive heart failure with an ejection fraction of 23%, status post permanent pacemaker. He was evaluated in October 2017 evaluated in [place] over a 2-week hospitalization and was advised that further invasive interventional measures were felt to be futile, and that aggressive medical management was his best and truly only option for ongoing care. He was subsequently admitted to the telemetry floor for further evaluation. 12/31/17: Lobito continues to gradually improve with further reduction in his weight on a daily basis and significantly decreased edema of his lower extremities. He continues to have dyspnea although this is somewhat improved after a palliative thoracentesis performed by radiology relieving 700 mL of fluid from his right chest. He denies chest pain and admits his dyspnea, swelling and orthopnea are significantly improved from the time of admission. He has been working with discharge planning to arrange for a place for him to reside after he is released from the hospital. Reason For Visit: HEART FAILURE Physical Exam Vital Signs: Temp Pulse Resp BP Pulse Ox 97.8 F 68 18 97/65 L 96 12/31/17 07:07 12/31/17 11:00 12/31/17 07:07 12/31/17 11:00 12/31/17 07:07 Intake & Output 12/29/17 12/30/17 12/31/17 23:59 23:59 23:59 Intake Total 1064 1419 250 Output Total 2375 1250 1250 Balance -1311 169 -1000 Weight 75.9 kg 74.6 kg 72.1 kg General appearance: PRESENT: no acute distress, hard of hearing - Essentially deaf and requires either lip reading or written communication., well-developed, well-nourished Head exam: PRESENT: atraumatic, normocephalic Eye exam: ABSENT: conjunctival injection, scleral icterus Ear exam: PRESENT: normal external ear exam. ABSENT: drainage Mouth exam: PRESENT: moist, tongue midline Neck exam: ABSENT: thyromegaly, tracheal deviation Respiratory exam: PRESENT: decreased breath sounds - Bilateral bases show decreased breath sounds, rales - Fine bibasilar rales are noted on exam, symmetrical, unlabored. ABSENT: rhonchi Cardiovascular exam: PRESENT: diastolic murmur - Faint aortic area diastolic murmur, gallop - Faint S3 gallop, RRR. ABSENT: clicks, rubs, systolic murmur Pulses: PRESENT: normal radial pulses, normal dorsalis pedis pul Vascular exam: PRESENT: normal capillary refill. ABSENT: pallor GI/Abdominal exam: PRESENT: normal bowel sounds, soft. ABSENT: ascites Rectal exam: PRESENT: deferred Extremities exam: PRESENT: pedal edema - Mild bipedal edema. ABSENT: joint swelling Musculoskeletal exam: PRESENT: other - Contusion medial tibial mid shaft area of the right lower extremity with a 5 x 8 cm ecchymotic area that is slightly raised and firm consistent with blunt contusion.. ABSENT: deformity, dislocation Neurological exam: PRESENT: alert, awake, oriented to person, oriented to place , oriented to time, oriented to situation, other - Bilateral neural deafness noted Psychiatric exam: PRESENT: appropriate affect, normal mood Skin exam: ABSENT: jaundice, rash, urticaria Results Laboratory Results: 12/31/17 05:47 12/31/17 05:47 12/31/17 12/31/17 05:47 05:47 WBC 5.4 RBC 3.54 L Hgb 11.5 L Hct 32.7 L MCV 92 MCH 32.4 MCHC 35.2 RDW 19.0 H Plt Count 78 L Seg Neutrophils % 64.2 Lymphocytes % 14.0 Monocytes % 18.6 H Eosinophils % 2.8 Basophils % 0.4 Absolute Neutrophils 3.5 Absolute Lymphocytes 0.8 Absolute Monocytes 1.0 Absolute Eosinophils 0.1 Absolute Basophils 0.0 Sodium 125.4 L Potassium 4.3 Chloride 90 L Carbon Dioxide 24 Anion Gap 11 BUN 18 Creatinine 0.66 Est GFR ( Amer) > 60 Est GFR (Non-Af Amer) > 60 Glucose 194 H Calcium 8.6 Phosphorus 3.0 Magnesium 1.6 Total Bilirubin 3.4 H AST 40 ALT 42 Alkaline Phosphatase 205 H Total Protein 4.7 L Albumin 2.6 L 12/26/17 12/26/17 12/27/17 22:25 22:25 04:45 Creatine Kinase 228 H 242 H CK-MB (CK-2) 9.78 H Troponin I 0.113 12/27/17 12/27/17 12/27/17 04:45 11:18 11:18 Creatine Kinase 201 H CK-MB (CK-2) 10.70 H 7.98 H Troponin I 0.136 0.119 12/30/17 12/30/17 12/30/17 04:30 04:55 11:00 Creatine Kinase 111 118 CK-MB (CK-2) 2.83 Troponin I 0.063 12/30/17 12/30/17 12/30/17 11:00 17:00 17:00 Creatine Kinase 138 CK-MB (CK-2) 3.35 3.85 Troponin I 0.049 0.051 Impressions: Thoracentesis Ultrasound 12/31/17 10:44 IMPRESSION: SUCCESSFUL THORACENTESIS USING ULTRASOUND GUIDANCE. Assessment & Plan - Diagnosis (1) Acute on chronic systolic CHF (congestive heart failure), NYHA class 4 Is this a current diagnosis for this admission?: Yes Plan: 12/31/17: Patient will be continued on a maximal medical therapeutic course with adjustments made in his therapeutic plan based on my evaluation today. We will substitute Demadex for the current furosemide, lisinopril for the current losartan will return to metoprolol XL instead of carvedilol, consolidation of nitrate therapy and do a single dosage form utilizing a 0.06 mg Nitro-Dur patch. The patient's dopamine infusion will be discontinued and his status will be reevaluated again tomorrow. (2) Anasarca Is this a current diagnosis for this admission?: Yes Plan: 12/31/17: Patient's anasarca from the description at the time of admission is significantly improved and will be treated ongoing with continued diuretic therapy using torsemide as required. (3) Bilateral pleural effusion Is this a current diagnosis for this admission?: Yes Plan: 12/31/17: Miller bilateral pleural effusions have been addressed with medical treatment and reduction of the left pleural effusion was noted however the right pleural effusion was persistent and this was addressed earlier today by radiology with a right thoracentesis obtaining 700 mL of fluid from his pleural space. Which he states he feels better after the procedure. Medication changes have been made in his CHF treatment plan which will hopefully help to reduce the likelihood of redevelopment of his right pleural effusion however given his severe chronic systolic congestive heart failure and significant right heart failure a recurrence of the right pleural effusion is a very high probability event. This may require further palliative thoracentesis. - Time Time Spent with patient: 35 or more minutes Medications reviewed and adjusted accordingly: Yes Anticipated discharge: SNF, Hospice
[2017-12-31] MEDS: NITROGLYCERIN 15 MG (0.6 MG/1 HR) PATCH.TD24 TD SCH (14:33)
[2017-12-31] MEDS: HEPARIN SOD (PORCINE) 5,000 UNIT/ML 1 ML SYRINGE SUBCUT SCH (21:45)
[2017-12-31] MEDS: ASPIRIN 81 MG TABLET, ENT COATED PO SCH (21:48)
[2018-01-01] MEDS: HEPARIN SOD (PORCINE) 5,000 UNIT/ML 1 ML SYRINGE SUBCUT SCH ×3 (05:33→21:04)
[2018-01-01] MEDS: LANSOPRAZOLE 15 MG TAB.RAP.DR PO SCH (05:50)
[2018-01-01] MEDS: DOBUTAMINE HCL/D5W 500 MG/250 ML RTUINJ IV PRN (08:21)
[2018-01-01] MEDS: SERTRALINE HCL 50 MG TABLET PO SCH (08:21)
[2018-01-01] MEDS ORDERED: LISINOPRIL 10 MG TABLET PO SCH (10:00)
[2018-01-01 10:35] LABS: HEMATOCRIT 33.3 % (37.9-51.0); HEMOGLOBIN 11.6 g/dL (13.5-17.0); MEAN CORPUSCULAR HEMOGLOBIN 32.3 pg (27.0-33.4); MEAN CORPUSCULAR HGB CONC 34.9 g/dL (32.0-36.0); MEAN CORPUSCULAR VOLUME 93 fl (80-97); RED BLOOD COUNT 3.59 10^6/uL (4.35-5.55); WHITE BLOOD COUNT 5.2 10^3/uL (4.0-10.5)
[2018-01-01 10:36] LABS: VENOUS BLOOD BASE EXCESS 1.4 mmol/L; VENOUS BLOOD HCO3 26.5 mmol/L (20-32); VENOUS BLOOD PCO2 43.8 mmHg (35-63); VENOUS BLOOD PH 7.4 (7.30-7.42)
[2018-01-01] MEDS: RANOLAZINE 500 MG TAB.SR.12H PO SCH (10:38)
[2018-01-01] MEDS: CLOPIDOGREL BISULFATE 75 MG TABLET PO SCH (10:39)
[2018-01-01] MEDS: NITROGLYCERIN 15 MG (0.6 MG/1 HR) PATCH.TD24 TD SCH (10:39)
[2018-01-01] MEDS: TORSEMIDE 20 MG TABLET PO SCH ×2 (10:39→15:18)
[2018-01-01] MEDS: ACETAMINOPHEN 325 MG TABLET PO PRN (10:39)
[2018-01-01] MEDS: MAGNESIUM OXIDE 400 MG TABLET PO SCH ×2 (10:39→17:21)
[2018-01-01] MEDS: POTASSIUM CHLORIDE 10 MEQ CAPSULE.ER PO SCH ×2 (10:39→21:12)
[2018-01-01] MEDS: POLYETHYLENE GLYCOL 3350 POWDER 17 GM/1 PACKET PO SCH (10:40)
[2018-01-01] MEDS: FLUTICASONE NASAL SPRAY 50 MCG/SPRY 120 SPRAY/16 GM NASL SCH (10:40)
[2018-01-01 11:19] LABS: ANION GAP 6 (5-19); BLOOD UREA NITROGEN 18 mg/dL (7-20); CALCIUM 8.9 mg/dL (8.4-10.2); CARBON DIOXIDE 28 mmol/L (22-30); CHLORIDE 91 mmol/L (98-107); GLUCOSE 101 mg/dL (75-110); POTASSIUM 4.7 mmol/L (3.6-5.0); SODIUM 125.4 mmol/L (137-145)
[2018-01-01 11:22] LABS: ABSOLUTE LYMPHOCYTES# (MANUAL) 0.7 10^3/uL (0.5-4.7); ABSOLUTE MONOCYTES # (MANUAL) 0.9 10^3/uL (0.1-1.4); ABSOLUTE NEUTROPHILS# (MANUAL) 3.2 10^3/uL (1.7-8.2); BASOPHILS % (MANUAL) 0 % (0-2); EOSINOPHILS % (MANUAL) 7 % (0-6); LYMPHOCYTES % (MANUAL) 12 % (13-45); MONOCYTES % (MANUAL) 18 % (3-13); SEGMENTED NEUTROPHILS % (MAN) 61 % (42-78); TOTAL CELLS COUNTED 100
[2018-01-01 11:25] LABS: ANISOCYTOSIS 2+; OVALOCYTES 1+; POIKILOCYTOSIS 1+
[2018-01-01 11:26] LABS: PLATELET COMMENT DECREASED; PLATELET COUNT 95 10^3/uL (150-450); TEAR DROP CELLS SLIGHT
[2018-01-01] MEDS: MIDODRINE HCL 5 MG TABLET PO SCH (15:34)
--- NOTE | 2018-01-01 18:16 | PDOC PROGRESS REPORT ---
Subjective Progress Note for:: 01/01/18 Subjective:: LOBITO THOMSON is a 67 year old male who presented to the emergency room with a 3-week history of gradual weight gain and swelling of his feet and legs with shortness of breath despite taking additional doses of Lasix over and above the prescribed dosage. Lobito further admitted worsening orthopnea and also admitted that dietary indiscretion was an aggravating factor for his edema and dyspnea. He admits a past medical history of bilateral neural deafness, coronary artery disease status post three-vessel bypass graft, chronic systolic congestive heart failure with an ejection fraction of 23%, status post permanent pacemaker. He was evaluated in October 2017 evaluated in [place] over a 2-week hospitalization and was advised that further invasive interventional measures were felt to be futile, and that aggressive medical management was his best and truly only option for ongoing care. He was subsequently admitted to the telemetry floor for further evaluation. 12/31/17: Lobito continues to gradually improve with further reduction in his weight on a daily basis and significantly decreased edema of his lower extremities. He continues to have dyspnea although this is somewhat improved after a palliative thoracentesis performed by radiology relieving 700 mL of fluid from his right chest. He denies chest pain and admits his dyspnea, swelling and orthopnea are significantly improved from the time of admission. He has been working with discharge planning to arrange for a place for him to reside after he is released from the hospital. 01/01/18: Lobito was feeling better again today stating that his lower leg swelling has remained well controlled and he has been able to tolerate some activity, although this is mostly just sitting up in bed, without increased dyspnea. He remains free of chest pain and has not suffered any palpitations. His orthopnea is significantly improved and he is able to lie flat and rest. We have discussed his possible discharge and to that end I discontinued his dobutamine drip today and an evaluation of his progress thereafter he was found to have a decreasing blood pressure in the 70s and 80s systolic. He tolerated this blood pressure quite well as he normally runs a relatively low systolic blood pressure due to his heart failure. He was started on oral minute during 10 mg p.o. 3 times daily with a stat dose given at the onset of therapy which resulted in improvement in his systolic blood pressure being increased to his usual level in the high 80s and low 90s. He is tolerating this well and is looking forward to a possible discharge in the next day or 2. Reason For Visit: HEART FAILURE Physical Exam Vital Signs: Temp Pulse Resp BP Pulse Ox 97.6 F 68 20 87/54 L 100 01/01/18 12:18 01/01/18 14:00 01/01/18 12:18 01/01/18 12:18 01/01/18 12:18 Intake & Output 12/30/17 12/31/17 01/01/18 23:59 23:59 23:59 Intake Total 1419 927 550 Output Total 1250 2600 750 Balance 169 -8423 -200 Weight 74.6 kg 72.1 kg 71.4 kg General appearance: PRESENT: no acute distress, cooperative Head exam: PRESENT: atraumatic, normocephalic Eye exam: PRESENT: conjunctiva pink. ABSENT: conjunctival injection, scleral icterus Ear exam: PRESENT: normal external ear exam. ABSENT: drainage Mouth exam: PRESENT: neck supple, tongue midline Neck exam: ABSENT: thyromegaly, tracheal deviation Respiratory exam: PRESENT: clear to auscultation ally, symmetrical, unlabored Cardiovascular exam: PRESENT: RRR. ABSENT: clicks, gallop, rubs Vascular exam: PRESENT: normal capillary refill. ABSENT: pallor GI/Abdominal exam: PRESENT: normal bowel sounds, soft Rectal exam: PRESENT: deferred Extremities exam: ABSENT: joint swelling, pedal edema Musculoskeletal exam: PRESENT: tenderness - Right mid medial anterior tibial surface with a resolving ecchymosis present that is tender to palpation.. ABSENT: deformity, dislocation Neurological exam: PRESENT: alert, awake, oriented to person, oriented to place , oriented to time, oriented to situation, motor sensory deficit - Severe bilateral neural deafness Psychiatric exam: PRESENT: appropriate affect, normal mood Skin exam: ABSENT: jaundice, rash, urticaria Results Laboratory Results: 01/01/18 10:15 01/01/18 10:15 01/01/18 01/01/18 01/01/18 10:15 10:15 10:15 WBC 5.2 RBC 3.59 L Hgb 11.6 L Hct 33.3 L MCV 93 MCH 32.3 MCHC 34.9 RDW 20.0 H Plt Count 95 L Seg Neutrophils % Not Reportable Lymphocytes % Not Reportable Monocytes % Not Reportable Eosinophils % Not Reportable Basophils % Not Reportable Absolute Neutrophils Not Reportable Absolute Lymphocytes Not Reportable Absolute Monocytes Not Reportable Absolute Eosinophils Not Reportable Absolute Basophils Not Reportable VBG pH VBG pCO2 VBG HCO3 VBG Base Excess Sodium 125.4 L Potassium 4.7 Chloride 91 L Carbon Dioxide 28 Anion Gap 6 BUN 18 Creatinine 0.81 Est GFR ( Amer) > 60 Est GFR (Non-Af Amer) > 60 Glucose 101 Calcium 8.9 Magnesium 1.9 TSH 1.84 01/01/18 10:15 WBC RBC Hgb Hct MCV MCH MCHC RDW Plt Count Seg Neutrophils % Lymphocytes % Monocytes % Eosinophils % Basophils % Absolute Neutrophils Absolute Lymphocytes Absolute Monocytes Absolute Eosinophils Absolute Basophils VBG pH 7.40 VBG pCO2 43.8 VBG HCO3 26.5 VBG Base Excess 1.4 Sodium Potassium Chloride Carbon Dioxide Anion Gap BUN Creatinine Est GFR ( Amer) Est GFR (Non-Af Amer) Glucose Calcium Magnesium TSH 12/26/17 12/26/17 12/27/17 22:25 22:25 04:45 Creatine Kinase 228 H 242 H CK-MB (CK-2) 9.78 H Troponin I 0.113 12/27/17 12/27/17 12/27/17 04:45 11:18 11:18 Creatine Kinase 201 H CK-MB (CK-2) 10.70 H 7.98 H Troponin I 0.136 0.119 12/30/17 12/30/17 12/30/17 04:30 04:55 11:00 Creatine Kinase 111 118 CK-MB (CK-2) 2.83 Troponin I 0.063 12/30/17 12/30/17 12/30/17 11:00 17:00 17:00 Creatine Kinase 138 CK-MB (CK-2) 3.35 3.85 Troponin I 0.049 0.051 Impressions: Thoracentesis Ultrasound 12/31/17 10:44 IMPRESSION: SUCCESSFUL THORACENTESIS USING ULTRASOUND GUIDANCE. Chest X-Ray 12/31/17 11:30 IMPRESSION: No pneumothorax 2 hours post right thoracentesis. Persistent small to moderate right pleural fluid. Assessment & Plan - Diagnosis (1) Acute on chronic systolic CHF (congestive heart failure), NYHA class 4 Is this a current diagnosis for this admission?: Yes Plan: 12/31/17: Patient will be continued on a maximal medical therapeutic course with adjustments made in his therapeutic plan based on my evaluation today. We will substitute Demadex for the current furosemide, lisinopril for the current losartan will return to metoprolol XL instead of carvedilol, consolidation of nitrate therapy and do a single dosage form utilizing a 0.06 mg Nitro-Dur patch. The patient's dopamine infusion will be discontinued and his status will be reevaluated again tomorrow. 01/01/18: After discontinuation of the patient's dopamine infusion he became significantly hypotensive with a systolic blood pressure in the 70s and lower 80s. This was treated with midodrine 10 mg p.o. 3 times daily. His metoprolol XL, nitro Dur patch, lisinopril and Demadex were held due to his episode of hypotension and will be restarted as appropriate when his blood pressure has been stabilized without the assistance of midodrine. Patient's placement in a detention facility or other appropriate residence is still pending and this problem should be an appropriate level of control prior to his discharge. (2) Anasarca Is this a current diagnosis for this admission?: Yes Plan: 12/31/17: Patient's anasarca from the description at the time of admission is significantly improved and will be treated ongoing with continued diuretic therapy using torsemide as required. 01/01/18: Lobito's anasarca continues to be resolved but will need to be closely observed since his diuretic therapy has been discontinued. (3) Bilateral pleural effusion Is this a current diagnosis for this admission?: Yes Plan: 12/31/17: Angela bilateral pleural effusions have been addressed with medical treatment and reduction of the left pleural effusion was noted however the right pleural effusion was persistent and this was addressed earlier today by radiology with a right thoracentesis obtaining 700 mL of fluid from his pleural space. Which he states he feels better after the procedure. Medication changes have been made in his CHF treatment plan which will hopefully help to reduce the likelihood of redevelopment of his right pleural effusion however given his severe chronic systolic congestive heart failure and significant right heart failure a recurrence of the right pleural effusion is a very high probability event. This may require further palliative thoracentesis. 01/01/18: No clinical change for this problem. (4) Deafness, bilateral Is this a current diagnosis for this admission?: Yes Plan: This is a chronic and stable problem but is significant in that it interferes with his ability to communicate with the patient to a significant degree and thus is a potential complication for therapy. He does not understand sign language and requires written communication for his intake though he can speak very clearly to express his portion of the conversation. - Time Time Spent with patient: 35 or more minutes Medications reviewed and adjusted accordingly: Yes Within: when bed available
[2018-01-01] MEDS: ASPIRIN 81 MG TABLET, ENT COATED PO SCH (21:12)
[2018-01-02] MEDS: HEPARIN SOD (PORCINE) 5,000 UNIT/ML 1 ML SYRINGE SUBCUT SCH ×3 (05:12→22:15)
[2018-01-02] MEDS: LANSOPRAZOLE 15 MG TAB.RAP.DR PO SCH (05:13)
[2018-01-02] MEDS: MIDODRINE HCL 5 MG TABLET PO SCH ×3 (08:17→17:24)
[2018-01-02] MEDS: SERTRALINE HCL 50 MG TABLET PO SCH (08:17)
[2018-01-02] MEDS ORDERED: TORSEMIDE 20 MG TABLET PO SCH (10:00)
[2018-01-02 10:14] LABS: VENOUS BLOOD BASE EXCESS 0.9 mmol/L; VENOUS BLOOD HCO3 26.8 mmol/L (20-32); VENOUS BLOOD PCO2 47.8 mmHg (35-63); VENOUS BLOOD PH 7.37 (7.30-7.42)
[2018-01-02 10:19] LABS: HEMATOCRIT 38.5 % (37.9-51.0); HEMOGLOBIN 13.3 g/dL (13.5-17.0); MEAN CORPUSCULAR HEMOGLOBIN 31.8 pg (27.0-33.4); MEAN CORPUSCULAR HGB CONC 34.5 g/dL (32.0-36.0); MEAN CORPUSCULAR VOLUME 92 fl (80-97); PLATELET COUNT 121 10^3/uL (150-450); RED BLOOD COUNT 4.18 10^6/uL (4.35-5.55); RED CELL DISTRIBUTION WIDTH 20.2 % (11.5-14.0); WHITE BLOOD COUNT 6.3 10^3/uL (4.0-10.5)
[2018-01-02] MEDS: FLUTICASONE NASAL SPRAY 50 MCG/SPRY 120 SPRAY/16 GM NASL SCH (10:24)
[2018-01-02] MEDS: CLOPIDOGREL BISULFATE 75 MG TABLET PO SCH (10:24)
[2018-01-02] MEDS: MAGNESIUM OXIDE 400 MG TABLET PO SCH ×2 (10:24→17:24)
[2018-01-02] MEDS: POTASSIUM CHLORIDE 10 MEQ CAPSULE.ER PO SCH (10:24)
[2018-01-02] MEDS: NITROGLYCERIN 2.5 MG (0.1 MG/HR) PATCH.TD24 TD SCH (10:24)
[2018-01-02] MEDS: RANOLAZINE 500 MG TAB.SR.12H PO SCH ×2 (10:24→22:17)
[2018-01-02] MEDS: LISINOPRIL 5 MG TABLET PO SCH (10:25)
[2018-01-02] MEDS: POLYETHYLENE GLYCOL 3350 POWDER 17 GM/1 PACKET PO SCH (10:25)
[2018-01-02 10:45] LABS: ANION GAP 10 (5-19); BLOOD UREA NITROGEN 21 mg/dL (7-20); CALCIUM 9.3 mg/dL (8.4-10.2); CARBON DIOXIDE 26 mmol/L (22-30); CHLORIDE 90 mmol/L (98-107); GLUCOSE 116 mg/dL (75-110); POTASSIUM 4.8 mmol/L (3.6-5.0); SODIUM 125.5 mmol/L (137-145)
[2018-01-02 10:57] LABS: ABSOLUTE LYMPHOCYTES# (MANUAL) 0.8 10^3/uL (0.5-4.7); ABSOLUTE MONOCYTES # (MANUAL) 0.5 10^3/uL (0.1-1.4); ABSOLUTE NEUTROPHILS# (MANUAL) 4.7 10^3/uL (1.7-8.2); BAND NEUTROPHILS % (MANUAL) 1 % (3-5); BASOPHILS % (MANUAL) 0 % (0-2); EOSINOPHILS % (MANUAL) 5 % (0-6); LYMPHOCYTES % (MANUAL) 10 % (13-45); MONOCYTES % (MANUAL) 8 % (3-13); SEGMENTED NEUTROPHILS % (MAN) 73 % (42-78); TOTAL CELLS COUNTED 100
[2018-01-02 10:59] LABS: ANISOCYTOSIS 2+; OVALOCYTES 1+; PLATELET COMMENT DECREASED; PLATELET LARGE PRESENT; POIKILOCYTOSIS 1+; TEAR DROP CELLS SLIGHT
--- NOTE | 2018-01-02 14:06 | PDOC PROGRESS REPORT ---
Subjective Progress Note for:: 01/02/18 Subjective:: LOBITO THOMSON is a 67 year old male who presented to the emergency room with a 3-week history of gradual weight gain and swelling of his feet and legs with shortness of breath despite taking additional doses of Lasix over and above the prescribed dosage. Lobito further admitted worsening orthopnea and also admitted that dietary indiscretion was an aggravating factor for his edema and dyspnea. He admits a past medical history of bilateral neural deafness, coronary artery disease status post three-vessel bypass graft, chronic systolic congestive heart failure with an ejection fraction of 23%, status post permanent pacemaker. He was evaluated in October 2017 evaluated in [place] over a 2-week hospitalization and was advised that further invasive interventional measures were felt to be futile, and that aggressive medical management was his best and truly only option for ongoing care. He was subsequently admitted to the telemetry floor for further evaluation. 12/31/17: Lobito continues to gradually improve with further reduction in his weight on a daily basis and significantly decreased edema of his lower extremities. He continues to have dyspnea although this is somewhat improved after a palliative thoracentesis performed by radiology relieving 700 mL of fluid from his right chest. He denies chest pain and admits his dyspnea, swelling and orthopnea are significantly improved from the time of admission. He has been working with discharge planning to arrange for a place for him to reside after he is released from the hospital. 01/01/18: Lobito was feeling better again today stating that his lower leg swelling has remained well controlled and he has been able to tolerate some activity, although this is mostly just sitting up in bed, without increased dyspnea. He remains free of chest pain and has not suffered any palpitations. His orthopnea is significantly improved and he is able to lie flat and rest. We have discussed his possible discharge and to that end I discontinued his dobutamine drip today and an evaluation of his progress thereafter he was found to have a decreasing blood pressure in the 70s and 80s systolic. He tolerated this blood pressure quite well as he normally runs a relatively low systolic blood pressure due to his heart failure. He was started on oral minute during 10 mg p.o. 3 times daily with a stat dose given at the onset of therapy which resulted in improvement in his systolic blood pressure being increased to his usual level in the high 80s and low 90s. He is tolerating this well and is looking forward to a possible discharge in the next day or 2. 01/02/18: Lobito was sleeping today at the time I entered his room for evaluation he did wake up briefly but explained that he was tired and wished to just go back to sleep. He admitted that he has continued to tolerate increased activity which he feels has made him tired and needing more sleep. He has not had severe dyspnea with mild activity and his orthopnea has resolved. He denies any further palpitations and has not experienced any orthostatic symptoms despite having had some difficulty in maintaining his systolic blood pressure yesterday. I did explain to him that his examination today showed some fine crackles in his lungs and that he would need to be started back on reduced doses of his congestive heart failure medications. He nodded his understanding of this but was becoming quite drowsy by the time we finished our conversation. Reason For Visit: HEART FAILURE Physical Exam Vital Signs: Temp Pulse Resp BP Pulse Ox 98.8 F 62 20 113/74 97 01/02/18 03:06 01/02/18 08:26 01/02/18 08:26 01/02/18 08:26 01/02/18 09:04 Intake & Output 12/31/17 01/01/18 01/02/18 23:59 23:59 23:59 Intake Total 927 925 710 Output Total 2600 1000 350 Balance -1673 -75 360 Weight 72.1 kg 71.4 kg 71 kg General appearance: PRESENT: no acute distress, cooperative, hard of hearing - Bilateral neural deafness Head exam: PRESENT: atraumatic, normocephalic Eye exam: ABSENT: conjunctival injection, scleral icterus Ear exam: PRESENT: normal external ear exam. ABSENT: bleeding Mouth exam: PRESENT: neck supple, tongue midline Neck exam: ABSENT: JVD, thyromegaly, tracheal deviation Respiratory exam: PRESENT: decreased breath sounds - Generalized decreased breath sounds with slightly more decreased/absent breath sounds noted in the right base., rales - Fine bibasilar rales noted, symmetrical, unlabored Cardiovascular exam: PRESENT: RRR. ABSENT: clicks, diastolic murmur, gallop, rubs, systolic murmur Vascular exam: PRESENT: normal capillary refill. ABSENT: pallor GI/Abdominal exam: PRESENT: normal bowel sounds, soft Rectal exam: PRESENT: deferred Extremities exam: ABSENT: joint swelling, pedal edema Musculoskeletal exam: PRESENT: full ROM, tenderness - Ecchymotic area previously noted on the right anterior tibial region is continuing to resolve slowly on a daily basis.. ABSENT: deformity, dislocation Neurological exam: PRESENT: alert, oriented to person, oriented to place, oriented to time, oriented to situation Psychiatric exam: PRESENT: appropriate affect, normal mood Skin exam: ABSENT: jaundice, rash, urticaria Results Laboratory Results: 01/02/18 09:57 01/02/18 09:57 01/02/18 01/02/18 01/02/18 09:57 09:57 09:57 WBC 6.3 RBC 4.18 L Hgb 13.3 L Hct 38.5 MCV 92 MCH 31.8 MCHC 34.5 RDW 20.2 H Plt Count 121 L Seg Neutrophils % Not Reportable Lymphocytes % Not Reportable Monocytes % Not Reportable Eosinophils % Not Reportable Basophils % Not Reportable Absolute Neutrophils Not Reportable Absolute Lymphocytes Not Reportable Absolute Monocytes Not Reportable Absolute Eosinophils Not Reportable Absolute Basophils Not Reportable VBG pH 7.37 VBG pCO2 47.8 VBG HCO3 26.8 VBG Base Excess 0.9 Sodium 125.5 L Potassium 4.8 Chloride 90 L Carbon Dioxide 26 Anion Gap 10 BUN 21 H Creatinine 0.96 Est GFR ( Amer) > 60 Est GFR (Non-Af Amer) > 60 Glucose 116 H Calcium 9.3 Magnesium 2.0 12/26/17 12/26/17 12/27/17 22:25 22:25 04:45 Creatine Kinase 228 H 242 H CK-MB (CK-2) 9.78 H Troponin I 0.113 12/27/17 12/27/17 12/27/17 04:45 11:18 11:18 Creatine Kinase 201 H CK-MB (CK-2) 10.70 H 7.98 H Troponin I 0.136 0.119 12/30/17 12/30/17 12/30/17 04:30 04:55 11:00 Creatine Kinase 111 118 CK-MB (CK-2) 2.83 Troponin I 0.063 12/30/17 12/30/17 12/30/17 11:00 17:00 17:00 Creatine Kinase 138 CK-MB (CK-2) 3.35 3.85 Troponin I 0.049 0.051 Impressions: Thoracentesis Ultrasound 12/31/17 10:44 IMPRESSION: SUCCESSFUL THORACENTESIS USING ULTRASOUND GUIDANCE. Chest X-Ray 12/31/17 11:30 IMPRESSION: No pneumothorax 2 hours post right thoracentesis. Persistent small to moderate right pleural fluid. Assessment & Plan - Diagnosis (1) Acute on chronic systolic CHF (congestive heart failure), NYHA class 4 Is this a current diagnosis for this admission?: Yes Plan: 12/31/17: Patient will be continued on a maximal medical therapeutic course with adjustments made in his therapeutic plan based on my evaluation today. We will substitute Demadex for the current furosemide, lisinopril for the current losartan will return to metoprolol XL instead of carvedilol, consolidation of nitrate therapy and do a single dosage form utilizing a 0.06 mg Nitro-Dur patch. The patient's dopamine infusion will be discontinued and his status will be reevaluated again tomorrow. 01/01/18: After discontinuation of the patient's dopamine infusion he became significantly hypotensive with a systolic blood pressure in the 70s and lower 80s. This was treated with midodrine 10 mg p.o. 3 times daily. His metoprolol XL, nitro Dur patch, lisinopril and Demadex were held due to his episode of hypotension and will be restarted as appropriate when his blood pressure has been stabilized without the assistance of midodrine. Patient's placement in a intermediate facility or other appropriate residence is still pending and this problem should be at an appropriate level of control prior to his discharge. 01/02/18: Patient's blood pressure is now stabilized at his baseline level with midodrine. His congestive heart failure regiment was restarted at decrease dosages. His clinical examination showed the renewal of clinical findings such as bibasilar fine rales. His clinical examination will be monitored on a daily basis during his hospital course and his CHF regiment will be adjusted as required with consideration given to his blood pressure. (2) Anasarca Is this a current diagnosis for this admission?: Yes Plan: 12/31/17: Patient's anasarca from the description at the time of admission is significantly improved and will be treated ongoing with continued diuretic therapy using torsemide as required. 01/01/18: Lobito's anasarca continues to be resolved but will need to be closely observed since his diuretic therapy has been discontinued. 01/02/18: Patient shows no evidence of recurrence of his anasarca at this point however continued observation will be made on a daily basis during his hospital course. (3) Bilateral pleural effusion Is this a current diagnosis for this admission?: Yes Plan: 12/31/17: Miller bilateral pleural effusions have been addressed with medical treatment and reduction of the left pleural effusion was noted however the right pleural effusion was persistent and this was addressed earlier today by radiology with a right thoracentesis obtaining 700 mL of fluid from his pleural space. Which he states he feels better after the procedure. Medication changes have been made in his CHF treatment plan which will hopefully help to reduce the likelihood of redevelopment of his right pleural effusion however given his severe chronic systolic congestive heart failure and significant right heart failure a recurrence of the right pleural effusion is a very high probability event. This may require further palliative thoracentesis. 01/01/18: No clinical change for this problem. 01/02/18: Somewhat more diminished breath sounds at the right base may indicate a recurrence of his right pleural effusion however he has not developed significant respiratory symptoms and no aggressive intervention such as a repeat thoracentesis would need to be performed until he has significant clinical respiratory symptoms. X-ray will be obtained as needed if his respiratory symptoms become clinically significant. (4) Deafness, bilateral Is this a current diagnosis for this admission?: Yes Plan: This is a chronic and stable problem but is significant in that it interferes with his ability to communicate with the patient to a significant degree and thus is a potential complication for therapy. He does not understand sign language and requires written communication for his intake though he can speak very clearly to express his portion of the conversation. - Time Time Spent with patient: 35 or more minutes Medications reviewed and adjusted accordingly: Yes Anticipated discharge: SNF
[2018-01-02 16:11] LABS: ARTERIAL BLOOD BASE EXCESS 0.2 mmol/L; ARTERIAL BLOOD H2CO3 1.03 mmol/L (1.05-1.35); ARTERIAL BLOOD HCO3 23.6 mmol/L (20-24); ARTERIAL BLOOD O2 SATURATION 97.5 % (94-98); ARTERIAL BLOOD PCO2 34.1 mmHg (35-45); ARTERIAL BLOOD PH 7.46 (7.35-7.45); ARTERIAL BLOOD TOTAL CO2 24.6 mmol/L (23-27)
[2018-01-02 16:25] LABS: ARTERIAL BLOOD FIO2 20%
[2018-01-02] MEDS: ASPIRIN 81 MG TABLET, ENT COATED PO SCH (22:17)
[2018-01-03] MEDS: HEPARIN SOD (PORCINE) 5,000 UNIT/ML 1 ML SYRINGE SUBCUT SCH ×3 (05:10→22:08)
[2018-01-03] MEDS: LANSOPRAZOLE 15 MG TAB.RAP.DR PO SCH ×2 (05:10→05:18)
[2018-01-03] MEDS: ACETAMINOPHEN 325 MG TABLET PO PRN (06:50)
[2018-01-03] MEDS: SERTRALINE HCL 50 MG TABLET PO SCH (08:12)
[2018-01-03] MEDS: MIDODRINE HCL 5 MG TABLET PO SCH ×3 (08:12→17:33)
[2018-01-03 09:40] LABS: MEAN CORPUSCULAR HEMOGLOBIN 32.3 pg (27.0-33.4); MEAN CORPUSCULAR HGB CONC 35.1 g/dL (32.0-36.0); MEAN CORPUSCULAR VOLUME 92 fl (80-97); PLATELET COUNT 135 10^3/uL (150-450); RED BLOOD COUNT 4.33 10^6/uL (4.35-5.55); RED CELL DISTRIBUTION WIDTH 20.3 % (11.5-14.0); VENOUS BLOOD BASE EXCESS -1.7 mmol/L; VENOUS BLOOD PCO2 38.8 mmHg (35-63); VENOUS BLOOD PH 7.39 (7.30-7.42); WHITE BLOOD COUNT 6.5 10^3/uL (4.0-10.5)
[2018-01-03 10:00] LABS: ANION GAP 12 (5-19); BLOOD UREA NITROGEN 21 mg/dL (7-20); CALCIUM 9.7 mg/dL (8.4-10.2); CARBON DIOXIDE 23 mmol/L (22-30); CHLORIDE 90 mmol/L (98-107); GLUCOSE 109 mg/dL (75-110); POTASSIUM 5.2 mmol/L (3.6-5.0); SODIUM 124.9 mmol/L (137-145)
--- NOTE | 2018-01-03 10:01 | PDOC TRANSFER SUMMARY ---
General - Admit/Disc Date/PCP Admission Date/Primary Care Provider: 12/26/17 21:42 Discharge Date: 01/03/18 - Discharge Diagnosis (1) Acute on chronic systolic CHF (congestive heart failure), NYHA class 4 Is this a current diagnosis for this admission?: Yes Summary: 12/31/17: Patient will be continued on a maximal medical therapeutic course with adjustments made in his therapeutic plan based on my evaluation today. We will substitute Demadex for the current furosemide, lisinopril for the current losartan will return to metoprolol XL instead of carvedilol, consolidation of nitrate therapy and do a single dosage form utilizing a 0.06 mg Nitro-Dur patch. The patient's dopamine infusion will be discontinued and his status will be reevaluated again tomorrow. 01/01/18: After discontinuation of the patient's dopamine infusion he became significantly hypotensive with a systolic blood pressure in the 70s and lower 80s. This was treated with midodrine 10 mg p.o. 3 times daily. His metoprolol XL, nitro Dur patch, lisinopril and Demadex were held due to his episode of hypotension and will be restarted as appropriate when his blood pressure has been stabilized without the assistance of midodrine. Patient's placement in a fpc facility or other appropriate residence is still pending and this problem should be at an appropriate level of control prior to his discharge. 01/02/18: Patient's blood pressure is now stabilized at his baseline level with midodrine. His congestive heart failure regiment was restarted at decrease dosages. His clinical examination showed the renewal of clinical findings such as bibasilar fine rales. His clinical examination will be monitored on a daily basis during his hospital course and his CHF regiment will be adjusted as required with consideration given to his blood pressure. (2) Hypotension Is this a current diagnosis for this admission?: Yes Summary: Mr. Franks has chronic systolic congestive heart failure [place] [employer] class IV and with it associated chronic hypotension. His hypotension had worsened over his hospital course as his edema was resolved with diuretic therapy. Diuretic treatment resulted in a 5 kg reduction in his weight. He responded very well to midodrine 10 mg p.o. 3 times daily during the day to maintain his blood pressure with any waking activities. Due to his hypotension his congestive heart failure regimen had been held for short period of time and was reintroduced after his blood pressure was stabilized with midodrine. He has tolerated reintroduction of his congestive heart failure regiment (minus metoprolol) and the minimal changes of congestive heart failure on physical exam that had resulted after discontinuation of his medication resolved after restarting his medications. (3) Anasarca Is this a current diagnosis for this admission?: Yes Summary: 12/31/17: Patient's anasarca from the description at the time of admission is significantly improved and will be treated ongoing with continued diuretic therapy using torsemide as required. 01/01/18: Elizabeth's anasarca continues to be resolved but will need to be closely observed since his diuretic therapy has been discontinued. 01/02/18: Patient shows no evidence of recurrence of his anasarca at this point however continued observation will be made on a daily basis during his hospital course. (4) Bilateral pleural effusion Is this a current diagnosis for this admission?: Yes Summary: 12/31/17: Angela bilateral pleural effusions have been addressed with medical treatment and reduction of the left pleural effusion was noted however the right pleural effusion was persistent and this was addressed earlier today by radiology with a right thoracentesis obtaining 700 mL of fluid from his pleural space. Which he states he feels better after the procedure. Medication changes have been made in his CHF treatment plan which will hopefully help to reduce the likelihood of redevelopment of his right pleural effusion however given his severe chronic systolic congestive heart failure and significant right heart failure a recurrence of the right pleural effusion is a very high probability event. This may require further palliative thoracentesis. 01/01/18: No clinical change for this problem. 01/02/18: Somewhat more diminished breath sounds at the right base may indicate a recurrence of his right pleural effusion however he has not developed significant respiratory symptoms and no aggressive intervention such as a repeat thoracentesis would need to be performed until he has significant clinical respiratory symptoms. X-ray will be obtained as needed if his respiratory symptoms become clinically significant. (5) Hyponatremia Is this a current diagnosis for this admission?: Yes Summary: Mr. Lindsays sodium level runs at approximately 125 on a chronic basis most likely due to his medical regimen to treat his congestive heart failure. He has tolerated this level well for an extended period of time. (6) Deafness, bilateral Is this a current diagnosis for this admission?: Yes Summary: This is a chronic and stable problem but is significant in that it interferes with his ability to communicate with the patient to a significant degree and thus is a potential complication for therapy. He does not understand sign language and requires written communication for his intake though he can speak very clearly to express his portion of the conversation. - Additional Information Resuscitation Status: Do Not Resuscitate Discharge Diet: Cardiac, Diabetic Discharge Activity: Activity As Tolerated, Balance Activity w/Rest, Supervised Activity - PT and OT, Weigh Daily Home Medications: Aspirin [Ecotrin 81 mg EC Tablet] 81 mg PO QHS 12/27/17 Clopidogrel Bisulfate [Plavix 75 mg Tablet] 75 mg PO DAILY 12/27/17 Ergocalciferol (Vitamin D2) [Drisdol 50,000 unit (1.25MG) Capsule] 50,000 unit PO GODFREY@1000 12/27/17 Fluticasone Propionate [Flonase Nasal [place] 50 Mcg/[place] 16 gm] 2 spray NASL DAILY 12/27/17 Magnesium Oxide [Mag-Ox 400 mg Tablet] 400 mg PO BID 12/27/17 Multivitamin [Tab-A-Desirae (Multiple Vitamin) Tablet] 1 tab PO DAILY 12/27/17 Omeprazole 20 mg PO ACBRKFST 12/27/17 Polyethylene Glycol 3350 [Miralax Powder 17 gm/Packet] 17 gm PO DAILY 12/27/17 Ranolazine [Ranexa] 500 mg PO Q12 12/27/17 Sertraline HCl [Zoloft] 25 mg PO QAM 12/27/17 Ubidecarenone [Coenzyme Q10] 100 mg PO NOON 12/27/17 Lisinopril [Prinivil 5 mg Tablet] 2.5 mg PO DAILY tablet 01/03/18 Midodrine HCl [Proamatine 5 mg Tablet] 10 mg PO TID@0800,1200,1600 tablet 01/03 Nitroglycerin [Nitro-Dur 2.5 mg (0.1 mg/Hr) Transdermal Ptch] 1 each TD DAILY patch.td24 01/03/18 Potassium Chloride [Klor-Con 10 Meq Capsule ER] 20 meq PO DAILY capsule.er Spironolactone [Aldactone 25 mg Tablet] 12.5 mg PO DAILY tablet 01/03/18 Torsemide [Demadex 20 mg Tablet] 10 mg PO DAILY tablet 01/03/18 History of Present Illness Admission Date/PCP: 12/26/17 21:42 Patient complains of: Peripheral edema with dyspnea History of Present Illness: ELIZABETH FRANKS is a 67 year old male who presented to the emergency room with a 3-week history of gradual weight gain and swelling of his feet and legs with shortness of breath despite taking additional doses of Lasix over and above the prescribed dosage. Elizabeth further admitted worsening orthopnea and also admitted that dietary indiscretion was an aggravating factor for his edema and dyspnea. He admits a past medical history of bilateral neural deafness, coronary artery disease status post three-vessel bypass graft, chronic systolic congestive heart failure with an ejection fraction of 23%, status post permanent pacemaker. He was evaluated in October 2017 evaluated in [place] over a 2-week hospitalization and was advised that further invasive interventional measures were felt to be futile, and that aggressive medical management was his best and truly only option for ongoing care. He was subsequently admitted to the telemetry floor for further evaluation. Hospital Course Hospital Course: 12/31/17: Elizabeth continues to gradually improve with further reduction in his weight on a daily basis and significantly decreased edema of his lower extremities. He continues to have dyspnea although this is somewhat improved after a palliative thoracentesis performed by radiology relieving 700 mL of fluid from his right chest. He denies chest pain and admits his dyspnea, swelling and orthopnea are significantly improved from the time of admission. He has been working with discharge planning to arrange for a place for him to reside after he is released from the hospital. 01/01/18: Elizabeth was feeling better again today stating that his lower leg swelling has remained well controlled and he has been able to tolerate some activity, although this is mostly just sitting up in bed, without increased dyspnea. He remains free of chest pain and has not suffered any palpitations. His orthopnea is significantly improved and he is able to lie flat and rest. We have discussed his possible discharge and to that end I discontinued his dobutamine drip today and an evaluation of his progress thereafter he was found to have a decreasing blood pressure in the 70s and 80s systolic. He tolerated this blood pressure quite well as he normally runs a relatively low systolic blood pressure due to his heart failure. He was started on oral minute during 10 mg p.o. 3 times daily with a stat dose given at the onset of therapy which resulted in improvement in his systolic blood pressure being increased to his usual level in the high 80s and low 90s. He is tolerating this well and is looking forward to a possible discharge in the next day or 2. 01/02/18: Elizabeth was sleeping today at the time I entered his room for evaluation he did wake up briefly but explained that he was tired and wished to just go back to sleep. He admitted that he has continued to tolerate increased activity which he feels has made him tired and needing more sleep. He has not had severe dyspnea with mild activity and his orthopnea has resolved. He denies any further palpitations and has not experienced any orthostatic symptoms despite having had some difficulty in maintaining his systolic blood pressure yesterday. I did explain to him that his examination today showed some fine crackles in his lungs and that he would need to be started back on reduced doses of his congestive heart failure medications. He nodded his understanding of this but was becoming quite drowsy by the time we finished our conversation. 01/03/18: Elizabeth continues to be stable with his vital signs running in his usual range systolic 90-105 and diastolic 55-70. He denies pain but continues to be limited in activity by his dyspnea, but admits that his orthopnea has been completely resolved. He also has had no recurrence of his palpitations and orthostatic symptoms. He has tolerated restarting his congestive heart failure medications at lower doses very well. His heart failure seems to be responding at these doses and no changes would be advised unless clinically indicated. A beta-ian has not been added back to his therapy due to his requirement for midodrine to support his blood pressure during the day and alleviate his prostatic symptoms when he is trying to be active. Midodrine may be gradually withdrawn by reducing the dose by 2.5 mg per dose (7.5 mg/day) every week as tolerated, with slower reduction advised if he is intolerant of the recommended regimen. Elizabeth will be discharged to [facility], in improved and stable condition, in [facility] today. Physical Exam Vital Signs: Temp Pulse Resp BP Pulse Ox 98.4 F 69 20 105/67 89 L 01/03/18 07:21 01/03/18 07:21 01/03/18 07:21 01/03/18 07:21 01/03/18 07:21 Intake & Output 01/01/18 01/02/18 01/03/18 23:59 23:59 23:59 Intake Total 925 1385 Output Total 1000 800 375 Balance -75 585 -375 Weight 71.4 kg 71 kg 70.1 kg General appearance: PRESENT: no acute distress, cooperative, hard of hearing - Neural deafness bilaterally Head exam: PRESENT: atraumatic, normocephalic Respiratory exam: PRESENT: clear to auscultation ally, decreased breath sounds - Right base, symmetrical, unlabored Cardiovascular exam: PRESENT: RRR. ABSENT: clicks, gallop, rubs Vascular exam: PRESENT: normal capillary refill. ABSENT: pallor Extremities exam: PRESENT: tenderness - Resolving ecchymotic area of right anterior tibial medial region remains tender to palpation.. ABSENT: pedal edema Neurological exam: PRESENT: alert, oriented to person, oriented to place, oriented to time, oriented to situation, motor sensory deficit - Bilateral neural deafness Psychiatric exam: PRESENT: appropriate affect, normal mood Skin exam: ABSENT: jaundice, rash, urticaria Results Laboratory Results: 01/02/18 09:57 01/02/18 09:57 01/02/18 01/02/18 01/02/18 09:57 09:57 09:57 WBC 6.3 RBC 4.18 L Hgb 13.3 L Hct 38.5 MCV 92 MCH 31.8 MCHC 34.5 RDW 20.2 H Plt Count 121 L Seg Neutrophils % Not Reportable Lymphocytes % Not Reportable Monocytes % Not Reportable Eosinophils % Not Reportable Basophils % Not Reportable Absolute Neutrophils Not Reportable Absolute Lymphocytes Not Reportable Absolute Monocytes Not Reportable Absolute Eosinophils Not Reportable Absolute Basophils Not Reportable Carbonic Acid HCO3/H2CO3 Ratio ABG pH ABG pCO2 ABG pO2 ABG HCO3 ABG O2 Saturation ABG Base Excess VBG pH 7.37 VBG pCO2 47.8 VBG HCO3 26.8 VBG Base Excess 0.9 FiO2 Sodium 125.5 L Potassium 4.8 Chloride 90 L Carbon Dioxide 26 Anion Gap 10 BUN 21 H Creatinine 0.96 Est GFR ( Amer) > 60 Est GFR (Non-Af Amer) > 60 Glucose 116 H Calcium 9.3 Magnesium 2.0 01/02/18 15:00 WBC RBC Hgb Hct MCV MCH MCHC RDW Plt Count Seg Neutrophils % Lymphocytes % Monocytes % Eosinophils % Basophils % Absolute Neutrophils Absolute Lymphocytes Absolute Monocytes Absolute Eosinophils Absolute Basophils Carbonic Acid 1.03 L HCO3/H2CO3 Ratio 22:1 ABG pH 7.46 H ABG pCO2 34.1 L ABG pO2 93.0 ABG HCO3 23.6 ABG O2 Saturation 97.5 ABG Base Excess 0.2 VBG pH VBG pCO2 VBG HCO3 VBG Base Excess FiO2 20% Sodium Potassium Chloride Carbon Dioxide Anion Gap BUN Creatinine Est GFR ( Amer) Est GFR (Non-Af Amer) Glucose Calcium Magnesium 12/26/17 12/26/17 12/27/17 22:25 22:25 04:45 Creatine Kinase 228 H 242 H CK-MB (CK-2) 9.78 H Troponin I 0.113 12/27/17 12/27/17 12/27/17 04:45 11:18 11:18 Creatine Kinase 201 H CK-MB (CK-2) 10.70 H 7.98 H Troponin I 0.136 0.119 12/30/17 12/30/17 12/30/17 04:30 04:55 11:00 Creatine Kinase 111 118 CK-MB (CK-2) 2.83 Troponin I 0.063 12/30/17 12/30/17 12/30/17 11:00 17:00 17:00 Creatine Kinase 138 CK-MB (CK-2) 3.35 3.85 Troponin I 0.049 0.051 Impressions: Thoracentesis Ultrasound 12/31/17 10:44 IMPRESSION: SUCCESSFUL THORACENTESIS USING ULTRASOUND GUIDANCE. Chest X-Ray 12/31/17 11:30 IMPRESSION: No pneumothorax 2 hours post right thoracentesis. Persistent small to moderate right pleural fluid. Transfer Plan - Disposition Transfer Plan: Discharge to [facility] in [facility] - Time Spent with Patient Time spent with patient: Greater than 30 Minutes Qualifiers - * PATIENT BEING DISCHARGED WITH ANY OF THE FOLLOWING DIAGNOSIS: No Plan Discharge Plan: Discharged to [facility] and [place] [facility] Time Spent: Greater than 30 Minutes
[2018-01-03 10:04] LABS: ABSOLUTE LYMPHOCYTES# (MANUAL) 0.8 10^3/uL (0.5-4.7); ABSOLUTE MONOCYTES # (MANUAL) 0.8 10^3/uL (0.1-1.4); ABSOLUTE NEUTROPHILS# (MANUAL) 4.6 10^3/uL (1.7-8.2); BASOPHILS % (MANUAL) 2 % (0-2); EOSINOPHILS % (MANUAL) 2 % (0-6); LYMPHOCYTES % (MANUAL) 10 % (13-45); METAMYELOCYTES % (MANUAL) 1 % (0); MONOCYTES % (MANUAL) 13 % (3-13); SEGMENTED NEUTROPHILS % (MAN) 69 % (42-78); TOTAL CELLS COUNTED 100
[2018-01-03 10:05] LABS: ANISOCYTOSIS 2+; BURR CELLS 1+; OVALOCYTES 1+; PLATELET COMMENT DECREASED; POIKILOCYTOSIS 1+
[2018-01-03] MEDS: RANOLAZINE 500 MG TAB.SR.12H PO SCH (10:41)
[2018-01-03] MEDS: CLOPIDOGREL BISULFATE 75 MG TABLET PO SCH (10:41)
[2018-01-03] MEDS: MAGNESIUM OXIDE 400 MG TABLET PO SCH ×2 (10:41→17:34)
[2018-01-03] MEDS: NITROGLYCERIN 2.5 MG (0.1 MG/HR) PATCH.TD24 TD SCH (10:42)
[2018-01-03] MEDS: LISINOPRIL 5 MG TABLET PO SCH (10:42)
[2018-01-03] MEDS: POTASSIUM CHLORIDE 10 MEQ CAPSULE.ER PO SCH (10:42)
[2018-01-03] MEDS: FLUTICASONE NASAL SPRAY 50 MCG/SPRY 120 SPRAY/16 GM NASL SCH (10:42)
[2018-01-03] MEDS: POLYETHYLENE GLYCOL 3350 POWDER 17 GM/1 PACKET PO SCH (10:43)
[2018-01-04] MEDS: RANOLAZINE 500 MG TAB.SR.12H PO SCH ×3 (00:29→21:13)
[2018-01-04] MEDS: ASPIRIN 81 MG TABLET, ENT COATED PO SCH ×2 (00:29→21:13)
[2018-01-04] MEDS ORDERED: AMIODARONE HCL INJ 150 MG/3 ML VIAL IV ONE (04:55)
[2018-01-04] MEDS ORDERED: NORMAL SALINE 250 ML IV ONE (05:30)
[2018-01-04] MEDS: HEPARIN SOD (PORCINE) 5,000 UNIT/ML 1 ML SYRINGE SUBCUT SCH ×3 (05:34→21:16)
[2018-01-04] MEDS: LANSOPRAZOLE 15 MG TAB.RAP.DR PO SCH (05:35)
[2018-01-04] MEDS: MIDODRINE HCL 5 MG TABLET PO SCH ×3 (08:34→17:29)
[2018-01-04] MEDS: SERTRALINE HCL 50 MG TABLET PO SCH (08:34)
--- NOTE | 2018-01-04 09:47 | EKG REPORT ---
SEVERITY:- ABNORMAL ECG - A-FLUTTER/FIB LIKELY SUPRAVENTRICULAR ABERRENCIES. NONSPECIFIC INTRAVENTRICULAR CONDUCTION DELAY : Confirmed by: Cristhian Clark MD 04-Jan-2018 09:47:07
[2018-01-04] MEDS: SPIRONOLACTONE 25 MG TABLET PO SCH (11:02)
[2018-01-04] MEDS: CLOPIDOGREL BISULFATE 75 MG TABLET PO SCH (11:02)
[2018-01-04] MEDS: NITROGLYCERIN 2.5 MG (0.1 MG/HR) PATCH.TD24 TD SCH (11:03)
[2018-01-04] MEDS: MAGNESIUM OXIDE 400 MG TABLET PO SCH ×2 (11:03→17:30)
[2018-01-04] MEDS: LISINOPRIL 5 MG TABLET PO SCH (11:03)
[2018-01-04] MEDS: FLUTICASONE NASAL SPRAY 50 MCG/SPRY 120 SPRAY/16 GM NASL SCH (11:12)
[2018-01-04] MEDS: POLYETHYLENE GLYCOL 3350 POWDER 17 GM/1 PACKET PO SCH (11:28)
--- NOTE | 2018-01-04 17:03 | PDOC PROGRESS REPORT ---
Subjective Progress Note for:: 01/04/18 Subjective:: LOBITO THOMSON is a 67 year old male who presented to the emergency room with a 3-week history of gradual weight gain and swelling of his feet and legs with shortness of breath despite taking additional doses of Lasix over and above the prescribed dosage. Lobito further admitted worsening orthopnea and also admitted that dietary indiscretion was an aggravating factor for his edema and dyspnea. He admits a past medical history of bilateral neural deafness, coronary artery disease status post three-vessel bypass graft, chronic systolic congestive heart failure with an ejection fraction of 23%, status post permanent pacemaker. He was evaluated in October 2017 evaluated in [place] over a 2-week hospitalization and was advised that further invasive interventional measures were felt to be futile, and that aggressive medical management was his best and truly only option for ongoing care. He was subsequently admitted to the telemetry floor for further evaluation. 12/31/17: Lobito continues to gradually improve with further reduction in his weight on a daily basis and significantly decreased edema of his lower extremities. He continues to have dyspnea although this is somewhat improved after a palliative thoracentesis performed by radiology relieving 700 mL of fluid from his right chest. He denies chest pain and admits his dyspnea, swelling and orthopnea are significantly improved from the time of admission. He has been working with discharge planning to arrange for a place for him to reside after he is released from the hospital. 01/01/18: Lobito was feeling better again today stating that his lower leg swelling has remained well controlled and he has been able to tolerate some activity, although this is mostly just sitting up in bed, without increased dyspnea. He remains free of chest pain and has not suffered any palpitations. His orthopnea is significantly improved and he is able to lie flat and rest. We have discussed his possible discharge and to that end I discontinued his dobutamine drip today and an evaluation of his progress thereafter he was found to have a decreasing blood pressure in the 70s and 80s systolic. He tolerated this blood pressure quite well as he normally runs a relatively low systolic blood pressure due to his heart failure. He was started on oral minute during 10 mg p.o. 3 times daily with a stat dose given at the onset of therapy which resulted in improvement in his systolic blood pressure being increased to his usual level in the high 80s and low 90s. He is tolerating this well and is looking forward to a possible discharge in the next day or 2. 01/02/18: Lobito was sleeping today at the time I entered his room for evaluation he did wake up briefly but explained that he was tired and wished to just go back to sleep. He admitted that he has continued to tolerate increased activity which he feels has made him tired and needing more sleep. He has not had severe dyspnea with mild activity and his orthopnea has resolved. He denies any further palpitations and has not experienced any orthostatic symptoms despite having had some difficulty in maintaining his systolic blood pressure yesterday. I did explain to him that his examination today showed some fine crackles in his lungs and that he would need to be started back on reduced doses of his congestive heart failure medications. He nodded his understanding of this but was becoming quite drowsy by the time we finished our conversation. 01/04/18: Lobito was awake today and alert he seemed to be in very good spirits. He was found last evening to have some arrhythmia that appeared to be atrial flutter however it resolved without treatment. His transfer was not completed as planned on 01/03/2018 and as such she has remained here receiving his planned medications. He offers no complaints today and smiles when I asked him if he is feeling good. Reason For Visit: HEART FAILURE Physical Exam Vital Signs: Temp Pulse Resp BP Pulse Ox 98.9 F 69 18 114/67 99 01/04/18 11:19 01/04/18 11:19 01/04/18 11:19 01/04/18 07:11 01/04/18 11:19 Intake & Output 01/02/18 01/03/18 01/04/18 23:59 23:59 23:59 Intake Total 1385 355 350 Output Total 800 600 325 Balance 585 -245 25 Weight 71 kg 70.1 kg 70.8 kg General appearance: PRESENT: no acute distress, cooperative Head exam: PRESENT: atraumatic, normocephalic Respiratory exam: PRESENT: clear to auscultation ally, symmetrical, unlabored Cardiovascular exam: PRESENT: irregular rhythm. ABSENT: clicks, gallop, rubs Pulses: PRESENT: normal radial pulses, normal dorsalis pedis pul Vascular exam: PRESENT: normal capillary refill. ABSENT: pallor GI/Abdominal exam: PRESENT: normal bowel sounds - 41958, soft Rectal exam: PRESENT: deferred Extremities exam: ABSENT: joint swelling, pedal edema Musculoskeletal exam: PRESENT: normal inspection. ABSENT: deformity, dislocation Neurological exam: PRESENT: alert, oriented to person, oriented to place, oriented to time, oriented to situation, motor sensory deficit - Bilateral neural deafness Psychiatric exam: PRESENT: appropriate affect, normal mood - 61366 Skin exam: ABSENT: jaundice, rash, urticaria Results Laboratory Results: 01/03/18 09:20 01/03/18 09:20 12/26/17 12/26/17 12/27/17 22:25 22:25 04:45 Creatine Kinase 228 H 242 H CK-MB (CK-2) 9.78 H Troponin I 0.113 12/27/17 12/27/17 12/27/17 04:45 11:18 11:18 Creatine Kinase 201 H CK-MB (CK-2) 10.70 H 7.98 H Troponin I 0.136 0.119 12/30/17 12/30/17 12/30/17 04:30 04:55 11:00 Creatine Kinase 111 118 CK-MB (CK-2) 2.83 Troponin I 0.063 12/30/17 12/30/17 12/30/17 11:00 17:00 17:00 Creatine Kinase 138 CK-MB (CK-2) 3.35 3.85 Troponin I 0.049 0.051 Impressions: Thoracentesis Ultrasound 12/31/17 10:44 IMPRESSION: SUCCESSFUL THORACENTESIS USING ULTRASOUND GUIDANCE. Chest X-Ray 12/31/17 11:30 IMPRESSION: No pneumothorax 2 hours post right thoracentesis. Persistent small to moderate right pleural fluid. Assessment & Plan - Diagnosis (1) Acute on chronic systolic CHF (congestive heart failure), NYHA class 4 Is this a current diagnosis for this admission?: Yes Plan: 12/31/17: Patient will be continued on a maximal medical therapeutic course with adjustments made in his therapeutic plan based on my evaluation today. We will substitute Demadex for the current furosemide, lisinopril for the current losartan will return to metoprolol XL instead of carvedilol, consolidation of nitrate therapy and do a single dosage form utilizing a 0.06 mg Nitro-Dur patch. The patient's dopamine infusion will be discontinued and his status will be reevaluated again tomorrow. 01/01/18: After discontinuation of the patient's dopamine infusion he became significantly hypotensive with a systolic blood pressure in the 70s and lower 80s. This was treated with midodrine 10 mg p.o. 3 times daily. His metoprolol XL, nitro Dur patch, lisinopril and Demadex were held due to his episode of hypotension and will be restarted as appropriate when his blood pressure has been stabilized without the assistance of midodrine. Patient's placement in a [facility] facility or other appropriate residence is still pending and this problem should be at an appropriate level of control prior to his discharge. 01/02/18: Patient's blood pressure is now stabilized at his baseline level with midodrine. His congestive heart failure regiment was restarted at decrease dosages. His clinical examination showed the renewal of clinical findings such as bibasilar fine rales. His clinical examination will be monitored on a daily basis during his hospital course and his CHF regiment will be adjusted as required with consideration given to his blood pressure. 01/04/18: Patient will be taken off of cardiac monitoring. Patient is a DNR patient and monitoring just increases the risk that he may be inadvertently resuscitated. (2) Hypotension Qualifiers: Hypotension type: unspecified hypotension type Qualified Code(s): I95.9 - Hypotension, unspecified Is this a current diagnosis for this admission?: Yes Plan: Patient will be continued on his midodrine 10 mg p.o. 3 times daily to help to prevent daytime hypotension. (3) Anasarca Is this a current diagnosis for this admission?: Yes Plan: 12/31/17: Patient's anasarca from the description at the time of admission is significantly improved and will be treated ongoing with continued diuretic therapy using torsemide as required. 01/01/18: Lobito's anasarca continues to be resolved but will need to be closely observed since his diuretic therapy has been discontinued. 01/02/18: Patient shows no evidence of recurrence of his anasarca at this point however continued observation will be made on a daily basis during his hospital course. (4) Bilateral pleural effusion Is this a current diagnosis for this admission?: Yes Plan: 12/31/17: Angela bilateral pleural effusions have been addressed with medical treatment and reduction of the left pleural effusion was noted however the right pleural effusion was persistent and this was addressed earlier today by radiology with a right thoracentesis obtaining 700 mL of fluid from his pleural space. Which he states he feels better after the procedure. Medication changes have been made in his CHF treatment plan which will hopefully help to reduce the likelihood of redevelopment of his right pleural effusion however given his severe chronic systolic congestive heart failure and significant right heart failure a recurrence of the right pleural effusion is a very high probability event. This may require further palliative thoracentesis. 01/01/18: No clinical change for this problem. 01/02/18: Somewhat more diminished breath sounds at the right base may indicate a recurrence of his right pleural effusion however he has not developed significant respiratory symptoms and no aggressive intervention such as a repeat thoracentesis would need to be performed until he has significant clinical respiratory symptoms. X-ray will be obtained as needed if his respiratory symptoms become clinically significant. 01/04/18: Patient's breath sounds are slightly diminished at the right base and no rales or sounds consistent with worsening heart failure are present on auscultation. (5) Hyponatremia Is this a current diagnosis for this admission?: Yes Plan: Patient's sodium runs in the 124-126 range chronically. His electrolytes should be checked periodically as appropriate to clinical symptoms and the clinical setting. (6) Deafness, bilateral Is this a current diagnosis for this admission?: Yes Plan: This is a chronic and stable problem but is significant in that it interferes with his ability to communicate with the patient to a significant degree and thus is a potential complication for therapy. He does not understand sign language and requires written communication for his intake though he can speak very clearly to express his portion of the conversation. - Time Time Spent with patient: 15-24 minutes Anticipated discharge: SNF
[2018-01-05] MEDS: HEPARIN SOD (PORCINE) 5,000 UNIT/ML 1 ML SYRINGE SUBCUT SCH ×3 (05:39→22:51)
[2018-01-05] MEDS: LANSOPRAZOLE 15 MG TAB.RAP.DR PO SCH (05:51)
[2018-01-05] MEDS: ACETAMINOPHEN 325 MG TABLET PO PRN (05:56)
[2018-01-05] MEDS ORDERED: MORPHINE SULFATE 10 MG/ML INJ IV ONE (07:00)
[2018-01-05] MEDS: SERTRALINE HCL 50 MG TABLET PO SCH (08:37)
[2018-01-05] MEDS: MIDODRINE HCL 5 MG TABLET PO SCH ×2 (08:37→14:09)
[2018-01-05] MEDS: RANOLAZINE 500 MG TAB.SR.12H PO SCH ×2 (11:06→23:22)
[2018-01-05] MEDS: POLYETHYLENE GLYCOL 3350 POWDER 17 GM/1 PACKET PO SCH (11:06)
[2018-01-05] MEDS: NITROGLYCERIN 2.5 MG (0.1 MG/HR) PATCH.TD24 TD SCH (11:06)
[2018-01-05] MEDS: MAGNESIUM OXIDE 400 MG TABLET PO SCH ×2 (11:08→17:40)
[2018-01-05] MEDS: CLOPIDOGREL BISULFATE 75 MG TABLET PO SCH (11:08)
[2018-01-05] MEDS: SPIRONOLACTONE 25 MG TABLET PO SCH (11:08)
[2018-01-05] MEDS: LISINOPRIL 5 MG TABLET PO SCH (11:09)
[2018-01-05] MEDS: FLUTICASONE NASAL SPRAY 50 MCG/SPRY 120 SPRAY/16 GM NASL SCH (11:11)
--- NOTE | 2018-01-05 12:26 | PDOC PROGRESS REPORT ---
Subjective Progress Note for:: 01/05/18 Subjective:: LOBITO THOMSON is a 67 year old male who presented to the emergency room with a 3-week history of gradual weight gain and swelling of his feet and legs with shortness of breath despite taking additional doses of Lasix over and above the prescribed dosage. Lobito further admitted worsening orthopnea and also admitted that dietary indiscretion was an aggravating factor for his edema and dyspnea. He admits a past medical history of bilateral neural deafness, coronary artery disease status post three-vessel bypass graft, chronic systolic congestive heart failure with an ejection fraction of 23%, status post permanent pacemaker. He was evaluated in October 2017 evaluated in [place] over a 2-week hospitalization and was advised that further invasive interventional measures were felt to be futile, and that aggressive medical management was his best and truly only option for ongoing care. He was subsequently admitted to the telemetry floor for further evaluation. 12/31/17: Lobito continues to gradually improve with further reduction in his weight on a daily basis and significantly decreased edema of his lower extremities. He continues to have dyspnea although this is somewhat improved after a palliative thoracentesis performed by radiology relieving 700 mL of fluid from his right chest. He denies chest pain and admits his dyspnea, swelling and orthopnea are significantly improved from the time of admission. He has been working with discharge planning to arrange for a place for him to reside after he is released from the hospital. 01/01/18: Lobito was feeling better again today stating that his lower leg swelling has remained well controlled and he has been able to tolerate some activity, although this is mostly just sitting up in bed, without increased dyspnea. He remains free of chest pain and has not suffered any palpitations. His orthopnea is significantly improved and he is able to lie flat and rest. We have discussed his possible discharge and to that end I discontinued his dobutamine drip today and an evaluation of his progress thereafter he was found to have a decreasing blood pressure in the 70s and 80s systolic. He tolerated this blood pressure quite well as he normally runs a relatively low systolic blood pressure due to his heart failure. He was started on oral minute during 10 mg p.o. 3 times daily with a stat dose given at the onset of therapy which resulted in improvement in his systolic blood pressure being increased to his usual level in the high 80s and low 90s. He is tolerating this well and is looking forward to a possible discharge in the next day or 2. 01/02/18: Lobito was sleeping today at the time I entered his room for evaluation he did wake up briefly but explained that he was tired and wished to just go back to sleep. He admitted that he has continued to tolerate increased activity which he feels has made him tired and needing more sleep. He has not had severe dyspnea with mild activity and his orthopnea has resolved. He denies any further palpitations and has not experienced any orthostatic symptoms despite having had some difficulty in maintaining his systolic blood pressure yesterday. I did explain to him that his examination today showed some fine crackles in his lungs and that he would need to be started back on reduced doses of his congestive heart failure medications. He nodded his understanding of this but was becoming quite drowsy by the time we finished our conversation. 01/04/18: Lobito was awake today and alert he seemed to be in very good spirits. He was found last evening to have some arrhythmia that appeared to be atrial flutter however it resolved without treatment. His transfer was not completed as planned on 01/03/2018 and as such she has remained here receiving his planned medications. He offers no complaints today and smiles when I asked him if he is feeling good. 01/05/18: Lobito was sleeping today at the time my evaluation. He arouses briefly and meets my gaze and then closes his eyes and goes back to sleep. His examination today was essentially unchanged from yesterday. Discharge is planned for 2017. Reason For Visit: HEART FAILURE Physical Exam Vital Signs: Temp Pulse Resp BP Pulse Ox 97.5 F 70 20 91/60 L 93 01/05/18 07:14 01/05/18 07:14 01/05/18 07:14 01/05/18 07:14 01/05/18 07:14 Intake & Output 01/03/18 01/04/18 01/05/18 23:59 23:59 23:59 Intake Total 355 350 591 Output Total 600 475 250 Balance -245 -125 341 Weight 70.1 kg 70.8 kg 70.2 kg General appearance: PRESENT: no acute distress, cooperative, other - Easily aroused but rapidly returns to sleep. Head exam: PRESENT: atraumatic, normocephalic Respiratory exam: PRESENT: clear to auscultation ally, symmetrical, unlabored Cardiovascular exam: PRESENT: RRR. ABSENT: clicks, gallop, rubs Skin exam: ABSENT: jaundice, rash, urticaria Results Laboratory Results: 01/03/18 09:20 01/03/18 09:20 12/26/17 12/26/17 12/27/17 22:25 22:25 04:45 Creatine Kinase 228 H 242 H CK-MB (CK-2) 9.78 H Troponin I 0.113 12/27/17 12/27/17 12/27/17 04:45 11:18 11:18 Creatine Kinase 201 H CK-MB (CK-2) 10.70 H 7.98 H Troponin I 0.136 0.119 12/30/17 12/30/17 12/30/17 04:30 04:55 11:00 Creatine Kinase 111 118 CK-MB (CK-2) 2.83 Troponin I 0.063 12/30/17 12/30/17 12/30/17 11:00 17:00 17:00 Creatine Kinase 138 CK-MB (CK-2) 3.35 3.85 Troponin I 0.049 0.051 Impressions: Thoracentesis Ultrasound 12/31/17 10:44 IMPRESSION: SUCCESSFUL THORACENTESIS USING ULTRASOUND GUIDANCE. Chest X-Ray 12/31/17 11:30 IMPRESSION: No pneumothorax 2 hours post right thoracentesis. Persistent small to moderate right pleural fluid. Assessment & Plan - Diagnosis (1) Acute on chronic systolic CHF (congestive heart failure), NYHA class 4 Is this a current diagnosis for this admission?: Yes Plan: 12/31/17: Patient will be continued on a maximal medical therapeutic course with adjustments made in his therapeutic plan based on my evaluation today. We will substitute Demadex for the current furosemide, lisinopril for the current losartan will return to metoprolol XL instead of carvedilol, consolidation of nitrate therapy and do a single dosage form utilizing a 0.06 mg Nitro-Dur patch. The patient's dopamine infusion will be discontinued and his status will be reevaluated again tomorrow. 01/01/18: After discontinuation of the patient's dopamine infusion he became significantly hypotensive with a systolic blood pressure in the 70s and lower 80s. This was treated with midodrine 10 mg p.o. 3 times daily. His metoprolol XL, nitro Dur patch, lisinopril and Demadex were held due to his episode of hypotension and will be restarted as appropriate when his blood pressure has been stabilized without the assistance of midodrine. Patient's placement in a long term facility or other appropriate residence is still pending and this problem should be at an appropriate level of control prior to his discharge. 01/02/18: Patient's blood pressure is now stabilized at his baseline level with midodrine. His congestive heart failure regiment was restarted at decrease dosages. His clinical examination showed the renewal of clinical findings such as bibasilar fine rales. His clinical examination will be monitored on a daily basis during his hospital course and his CHF regiment will be adjusted as required with consideration given to his blood pressure. 01/04/18: Patient will be taken off of cardiac monitoring. Patient is a DNR patient and monitoring just increases the risk that he may be inadvertently resuscitated. (2) Hypotension Qualifiers: Hypotension type: unspecified hypotension type Qualified Code(s): I95.9 - Hypotension, unspecified Is this a current diagnosis for this admission?: Yes Plan: Patient will be continued on his midodrine 10 mg p.o. 3 times daily to help to prevent daytime hypotension. (3) Anasarca Is this a current diagnosis for this admission?: Yes Plan: 12/31/17: Patient's anasarca from the description at the time of admission is significantly improved and will be treated ongoing with continued diuretic therapy using torsemide as required. 01/01/18: Lobito's anasarca continues to be resolved but will need to be closely observed since his diuretic therapy has been discontinued. 01/02/18: Patient shows no evidence of recurrence of his anasarca at this point however continued observation will be made on a daily basis during his hospital course. (4) Bilateral pleural effusion Is this a current diagnosis for this admission?: Yes Plan: 12/31/17: Angela bilateral pleural effusions have been addressed with medical treatment and reduction of the left pleural effusion was noted however the right pleural effusion was persistent and this was addressed earlier today by radiology with a right thoracentesis obtaining 700 mL of fluid from his pleural space. Which he states he feels better after the procedure. Medication changes have been made in his CHF treatment plan which will hopefully help to reduce the likelihood of redevelopment of his right pleural effusion however given his severe chronic systolic congestive heart failure and significant right heart failure a recurrence of the right pleural effusion is a very high probability event. This may require further palliative thoracentesis. 01/01/18: No clinical change for this problem. 01/02/18: Somewhat more diminished breath sounds at the right base may indicate a recurrence of his right pleural effusion however he has not developed significant respiratory symptoms and no aggressive intervention such as a repeat thoracentesis would need to be performed until he has significant clinical respiratory symptoms. X-ray will be obtained as needed if his respiratory symptoms become clinically significant. 01/04/18: Patient's breath sounds are slightly diminished at the right base and no rales or sounds consistent with worsening heart failure are present on auscultation. (5) Hyponatremia Is this a current diagnosis for this admission?: Yes Plan: Patient's sodium runs in the 124-126 range chronically. His electrolytes should be checked periodically as appropriate to clinical symptoms and the clinical setting. (6) Deafness, bilateral Is this a current diagnosis for this admission?: Yes Plan: This is a chronic and stable problem but is significant in that it interferes with his ability to communicate with the patient to a significant degree and thus is a potential complication for therapy. He does not understand sign language and requires written communication for his intake though he can speak very clearly to express his portion of the conversation. - Time Time Spent with patient: 15-24 minutes
[2018-01-05] MEDS: ASPIRIN 81 MG TABLET, ENT COATED PO SCH (23:29)
[2018-01-06] MEDS: HEPARIN SOD (PORCINE) 5,000 UNIT/ML 1 ML SYRINGE SUBCUT SCH ×2 (06:02→14:18)
[2018-01-06] MEDS: LANSOPRAZOLE 15 MG TAB.RAP.DR PO SCH (06:02)
[2018-01-06] MEDS: MIDODRINE HCL 5 MG TABLET PO SCH ×4 (08:31→16:16)
[2018-01-06] MEDS: SERTRALINE HCL 50 MG TABLET PO SCH (08:51)
[2018-01-06] MEDS: POLYETHYLENE GLYCOL 3350 POWDER 17 GM/1 PACKET PO SCH (10:05)
[2018-01-06] MEDS: NITROGLYCERIN 2.5 MG (0.1 MG/HR) PATCH.TD24 TD SCH (10:05)
[2018-01-06] MEDS: FLUTICASONE NASAL SPRAY 50 MCG/SPRY 120 SPRAY/16 GM NASL SCH (10:06)
[2018-01-06] MEDS: RANOLAZINE 500 MG TAB.SR.12H PO SCH (10:06)
[2018-01-06] MEDS: MAGNESIUM OXIDE 400 MG TABLET PO SCH (10:06)
[2018-01-06] MEDS: SPIRONOLACTONE 25 MG TABLET PO SCH (10:07)
[2018-01-06] MEDS: CLOPIDOGREL BISULFATE 75 MG TABLET PO SCH (10:07)
[2018-01-06] MEDS: LISINOPRIL 5 MG TABLET PO SCH (10:07)
--- NOTE | 2018-01-06 10:57 | PDOC PROGRESS REPORT ---
Subjective Progress Note for:: 01/06/18 Subjective:: ELIZABETH THOMSON is a 67 year old male who presented to the emergency room with a 3-week history of gradual weight gain and swelling of his feet and legs with shortness of breath despite taking additional doses of Lasix over and above the prescribed dosage. Elizabeth further admitted worsening orthopnea and also admitted that dietary indiscretion was an aggravating factor for his edema and dyspnea. He admits a past medical history of bilateral neural deafness, coronary artery disease status post three-vessel bypass graft, chronic systolic congestive heart failure with an ejection fraction of 23%, status post permanent pacemaker. He was evaluated in October 2017 evaluated in [facility] over a 2-week hospitalization and was advised that further invasive interventional measures were felt to be futile, and that aggressive medical management was his best and truly only option for ongoing care. He was subsequently admitted to the telemetry floor for further evaluation. 12/31/17: Elizabeth continues to gradually improve with further reduction in his weight on a daily basis and significantly decreased edema of his lower extremities. He continues to have dyspnea although this is somewhat improved after a palliative thoracentesis performed by radiology relieving 700 mL of fluid from his right chest. He denies chest pain and admits his dyspnea, swelling and orthopnea are significantly improved from the time of admission. He has been working with discharge planning to arrange for a place for him to reside after he is released from the hospital. 01/01/18: Elizabeth was feeling better again today stating that his lower leg swelling has remained well controlled and he has been able to tolerate some activity, although this is mostly just sitting up in bed, without increased dyspnea. He remains free of chest pain and has not suffered any palpitations. His orthopnea is significantly improved and he is able to lie flat and rest. We have discussed his possible discharge and to that end I discontinued his dobutamine drip today and an evaluation of his progress thereafter he was found to have a decreasing blood pressure in the 70s and 80s systolic. He tolerated this blood pressure quite well as he normally runs a relatively low systolic blood pressure due to his heart failure. He was started on oral minute during 10 mg p.o. 3 times daily with a stat dose given at the onset of therapy which resulted in improvement in his systolic blood pressure being increased to his usual level in the high 80s and low 90s. He is tolerating this well and is looking forward to a possible discharge in the next day or 2. 01/02/18: Elizabeth was sleeping today at the time I entered his room for evaluation he did wake up briefly but explained that he was tired and wished to just go back to sleep. He admitted that he has continued to tolerate increased activity which he feels has made him tired and needing more sleep. He has not had severe dyspnea with mild activity and his orthopnea has resolved. He denies any further palpitations and has not experienced any orthostatic symptoms despite having had some difficulty in maintaining his systolic blood pressure yesterday. I did explain to him that his examination today showed some fine crackles in his lungs and that he would need to be started back on reduced doses of his congestive heart failure medications. He nodded his understanding of this but was becoming quite drowsy by the time we finished our conversation. 01/04/18: Elizabeth was awake today and alert he seemed to be in very good spirits. He was found last evening to have some arrhythmia that appeared to be atrial flutter however it resolved without treatment. His transfer was not completed as planned on 01/03/2018 and as such she has remained here receiving his planned medications. He offers no complaints today and smiles when I asked him if he is feeling good. 01/05/18: Elizabeth was sleeping today at the time my evaluation. He arouses briefly and meets my gaze and then closes his eyes and goes back to sleep. His examination today was essentially unchanged from yesterday. Discharge is planned for 2017. 01/06/18: Elizabeth is awake and his just finished eating his breakfast and is taking his medications at the time of my visit today. He is smiling and nods yes to being happy to go to [facility] today. He nods appropriately when I discussed with him that his chest sounds good with no crackles or rales and his right chest shows no change in the decreased breath sounds at the base, thus indicating no new accumulation of fluid in the right lung base. He nods that he feels well, and shakes his head to deny pain. He smiles when we discussed his swelling when he came in to the hospital and how much it has improved. We also discussed how much his breathing has improved over the time he has been here and how much more activity he can tolerate such as sitting up in bed to eat and sitting up for a bath. He nods appropriately and smiles on each topic. His exam is unchanged from that of the last 2 or 3 days. He will be discharged today. Reason For Visit: HEART FAILURE Physical Exam Vital Signs: Temp Pulse Resp BP Pulse Ox 98.7 F 85 20 105/67 98 01/06/18 07:54 01/06/18 07:54 01/06/18 07:54 01/06/18 07:54 01/06/18 07:54 Intake & Output 01/04/18 01/05/18 01/06/18 23:59 23:59 23:59 Intake Total 350 813 0 Output Total 475 525 90 Balance -125 288 -90 Weight 70.8 kg 70.2 kg 71.2 kg General appearance: PRESENT: no acute distress, cooperative Head exam: PRESENT: atraumatic, normocephalic Eye exam: ABSENT: conjunctival injection, scleral icterus Ear exam: PRESENT: normal external ear exam. ABSENT: drainage Mouth exam: PRESENT: neck supple, tongue midline Neck exam: ABSENT: JVD, thyromegaly, tracheal deviation Respiratory exam: PRESENT: clear to auscultation ally, decreased breath sounds - Mildly decreased breath sounds at the right base unchanged over the last 7 days since his thoracentesis., symmetrical, unlabored Cardiovascular exam: PRESENT: RRR. ABSENT: clicks, gallop, rubs Vascular exam: PRESENT: normal capillary refill. ABSENT: pallor GI/Abdominal exam: PRESENT: normal bowel sounds, soft Rectal exam: PRESENT: deferred Extremities exam: ABSENT: joint swelling, pedal edema Musculoskeletal exam: ABSENT: deformity, dislocation Neurological exam: PRESENT: alert, oriented to person, oriented to place, oriented to time, oriented to situation, other - Bilateral deafness Psychiatric exam: PRESENT: appropriate affect, normal mood Skin exam: ABSENT: jaundice, rash, urticaria Results Laboratory Results: 01/03/18 09:20 01/03/18 09:20 12/26/17 12/26/17 12/27/17 22:25 22:25 04:45 Creatine Kinase 228 H 242 H CK-MB (CK-2) 9.78 H Troponin I 0.113 12/27/17 12/27/17 12/27/17 04:45 11:18 11:18 Creatine Kinase 201 H CK-MB (CK-2) 10.70 H 7.98 H Troponin I 0.136 0.119 12/30/17 12/30/17 12/30/17 04:30 04:55 11:00 Creatine Kinase 111 118 CK-MB (CK-2) 2.83 Troponin I 0.063 12/30/17 12/30/17 12/30/17 11:00 17:00 17:00 Creatine Kinase 138 CK-MB (CK-2) 3.35 3.85 Troponin I 0.049 0.051 Impressions: Thoracentesis Ultrasound 12/31/17 10:44 IMPRESSION: SUCCESSFUL THORACENTESIS USING ULTRASOUND GUIDANCE. Chest X-Ray 12/31/17 11:30 IMPRESSION: No pneumothorax 2 hours post right thoracentesis. Persistent small to moderate right pleural fluid. Assessment & Plan - Diagnosis (1) Acute on chronic systolic CHF (congestive heart failure), NYHA class 4 Is this a current diagnosis for this admission?: Yes Plan: 12/31/17: Patient will be continued on a maximal medical therapeutic course with adjustments made in his therapeutic plan based on my evaluation today. We will substitute Demadex for the current furosemide, lisinopril for the current losartan will return to metoprolol XL instead of carvedilol, consolidation of nitrate therapy and do a single dosage form utilizing a 0.06 mg Nitro-Dur patch. The patient's dopamine infusion will be discontinued and his status will be reevaluated again tomorrow. 01/01/18: After discontinuation of the patient's dopamine infusion he became significantly hypotensive with a systolic blood pressure in the 70s and lower 80s. This was treated with midodrine 10 mg p.o. 3 times daily. His metoprolol XL, nitro Dur patch, lisinopril and Demadex were held due to his episode of hypotension and will be restarted as appropriate when his blood pressure has been stabilized without the assistance of midodrine. Patient's placement in a longterm facility or other appropriate residence is still pending and this problem should be at an appropriate level of control prior to his discharge. 01/02/18: Patient's blood pressure is now stabilized at his baseline level with midodrine. His congestive heart failure regiment was restarted at decrease dosages because his clinical examination showed the renewal of clinical findings (bibasilar fine rales). His clinical examination will be monitored on a daily basis during his hospital course and his CHF regiment will be adjusted as required with consideration given to his blood pressure. 01/04/18: Patient will be taken off of cardiac monitoring. Patient is a DNR patient and monitoring just increases the risk that he may be inadvertently resuscitated. 01/06/18: Clinical exam today shows excellent air movement in the bilateral lungs there is a minimal area of decreased breath sounds at the right base which is remained stable for the last 7 days. Additionally he has no dyspnea or labored breathing with sitting up in bed or laying flat. His current regimen of medications will be continued. This consists of nitro Dur 0.1 mg/h patch change daily, lisinopril 2.5 mg p.o. daily and Demadex 10 mg p.o. daily. He is also continued on midodrine 10 mg p.o. 3 times daily during normal waking hours and this he was not restarted on a beta-ian which would be counterproductive. Patient is also a DNR and essentially a palliative measures and comfort measures only patient at this point, thus he was not started on a statin agent as that would not fit the definition of palliative measures and comfort measures. (2) Hypotension Qualifiers: Hypotension type: unspecified hypotension type Qualified Code(s): I95.9 - Hypotension, unspecified Is this a current diagnosis for this admission?: Yes Plan: Patient will be continued on his midodrine 10 mg p.o. 3 times daily to help to prevent daytime hypotension. (3) Coronary artery disease with angina pectoris Is this a current diagnosis for this admission?: Yes Plan: Patient will be continued on his Ranexa to maintain control of his angina as he relates that he has had no problems with angina pectoris since starting on Ranexa quite some time ago. (4) Anasarca Is this a current diagnosis for this admission?: Yes Plan: 12/31/17: Patient's anasarca from the description at the time of admission is significantly improved and will be treated ongoing with continued diuretic therapy using torsemide as required. 01/01/18: Elizabeth's anasarca continues to be resolved but will need to be closely observed since his diuretic therapy has been discontinued. 01/02/18: Patient shows no evidence of recurrence of his anasarca at this point however continued observation will be made on a daily basis during his hospital course. (5) Bilateral pleural effusion Is this a current diagnosis for this admission?: Yes Plan: 12/31/17: Angela bilateral pleural effusions have been addressed with medical treatment and reduction of the left pleural effusion was noted however the right pleural effusion was persistent and this was addressed earlier today by radiology with a right thoracentesis obtaining 700 mL of fluid from his pleural space. Which he states he feels better after the procedure. Medication changes have been made in his CHF treatment plan which will hopefully help to reduce the likelihood of redevelopment of his right pleural effusion however given his severe chronic systolic congestive heart failure and significant right heart failure a recurrence of the right pleural effusion is a very high probability event. This may require further palliative thoracentesis. 01/01/18: No clinical change for this problem. 01/02/18: Somewhat more diminished breath sounds at the right base may indicate a recurrence of his right pleural effusion however he has not developed significant respiratory symptoms and no aggressive intervention such as a repeat thoracentesis would need to be performed until he has significant clinical respiratory symptoms. X-ray will be obtained as needed if his respiratory symptoms become clinically significant. 01/04/18: Patient's breath sounds are slightly diminished at the right base and no rales or sounds consistent with worsening heart failure are present on auscultation. (6) Hyponatremia Is this a current diagnosis for this admission?: Yes Plan: Patient's sodium runs in the 124-126 range chronically. His electrolytes should be checked periodically as appropriate to clinical symptoms and the clinical setting. (7) Deafness, bilateral Is this a current diagnosis for this admission?: Yes Plan: This is a chronic and stable problem but is significant in that it interferes with his ability to communicate with the patient to a significant degree and thus is a potential complication for therapy. He does not understand sign language and requires written communication for his intake though he can speak very clearly to express his portion of the conversation.
[2018-01-06 15:24] VITALS: BP 93/49
== END 2018-01-06 17:31 | DRG 292 ==
LOC: ER 16:41 → EH 21:42 → 3W 12-27 02:40
PROVIDERS: ADMIT Internal Medicine; ATTEND Internal Medicine
PROC: 5A09457 Assistance with Respiratory Ventilation, 24-96 Consecutive Hours, Continuous Positive Airway Pressure (ICD-10-PCS; 2017-12-27)
PROC: 0W993ZZ Drainage of Right Pleural Cavity, Percutaneous Approach (ICD-10-PCS; principal; 2017-12-31)
DX: I11.0 Hypertensive heart disease with heart failure (principal); E87.1 Hypo-osmolality and hyponatremia; J91.8 Pleural effusion in other conditions classified elsewhere; I50.23 Acute on chronic systolic (congestive) heart failure; I25.10 Atherosclerotic heart disease of native coronary artery without angina pectoris; Z95.0 Presence of cardiac pacemaker; I25.2 Old myocardial infarction; E78.5 Hyperlipidemia, unspecified; K21.9 Gastro-esophageal reflux disease without esophagitis; E11.9 Type 2 diabetes mellitus without complications; H90.5 Unspecified sensorineural hearing loss; I95.9 Hypotension, unspecified; M19.90 Unspecified osteoarthritis, unspecified site; G47.33 Obstructive sleep apnea (adult) (pediatric); F32.9 Major depressive disorder, single episode, unspecified; D64.9 Anemia, unspecified; Z95.1 Presence of aortocoronary bypass graft; Z90.49 Acquired absence of other specified parts of digestive tract; Z66 Do not resuscitate; Z88.0 Allergy status to penicillin; Z91.040 Latex allergy status; Z79.899 Other long term (current) drug therapy; Z79.82 Long term (current) use of aspirin
CPT/HCPCS: 32555; 36415; 71045; 71046; 80048; 80053; 82550; 82553; 82803; 82962; 83036; 83735; 83880; 84100; 84443; 84484; 85025; 85610; 93005; 93010; 93306; 93971; 96374; 99291; J0282; J1250; J1644; J1940; J2270; J2405; J3490; J7050